=== PATIENT | female | born 2000 | race Caucasian/White ===

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

== ENCOUNTER 2018-04-12 19:55 | Emergency (ER) | payer OTHER ==
[2018-04-12 20:06] VITALS: BP 145/83; PULSE 89; RESP 16; TEMP 97.8
--- NOTE | 2018-04-12 20:29 | ED ---
Skin/Abscess/FB HPI - General Chief complaint: Skin/Abscess/Foreign Body Stated complaint: rash (Scabies) Time Seen by Provider: 04/12/18 20:09 Source: patient, RN notes reviewed Mode of arrival: ambulatory Limitations: no limitations - History of Present Illness Initial comments: This is a 17-year-old female who presents to the emergency department with chief complaint of skin. Patient states that her son has had a rash for the past 2 weeks. She states that she did bring him to the urgent care and he was diagnosed with eczema. Patient states that the rash did not improve and that yesterday he was diagnosed with scabies. She states that her son's father and her son are both being treated with a cream for scabies. She states that she would also like to be treated. She states that she is feeling itchy but has not seen any rash. Denies any recent fevers or chills, chest pain or shortness of breath, abdominal pain, nausea or vomiting. - Related Data Previous Rx's Medication Instructions Recorded Permethrin 5% Cream [Elimite] 1 applic TOPICAL ONCE #1 tube 04/12/18 Allergies Allergy/AdvReac Type Severity Reaction Status Date / Time ampicillin [From Unasyn] Allergy Mild Rash/Hives Verified 04/12/18 20:06 sulbactam [From Unasyn] Allergy Mild Rash/Hives Verified 04/12/18 20:06 Review of Systems ROS Statement: Those systems with pertinent positive or pertinent negative responses have been documented in the HPI. ROS Other: All systems not noted in ROS Statement are negative. Past Medical History Past Medical History: No Reported History Additional Past Medical History / Comment(s): polycystic kidney disease History of Any Multi-Drug Resistant Organisms: None Reported Past Surgical History: Cholecystectomy Past Anesthesia/Blood Transfusion Reactions: No Reported Reaction Past Psychological History: ADD/ADHD Smoking Status: Current every day smoker Past Alcohol Use History: None Reported Past Drug Use History: None Reported - Past Family History Sister(s) Family Medical History: No Reported History Additional Family Medical History / Comment(s): polycystic kidney disease, adhd General Exam - General Exam Comments Initial Comments: General: Awake and alert, well-developed; in no apparent distress. HEENT: Head atraumatic, normocephalic. Pupils are equal, round and reactive to light. Extraocular movements intact. Oropharynx moist without erythema or exudate. Neck: Supple. Normal ROM. Cardiovascular: Regular rate and rhythm. No murmurs, rubs or gallops. Chest symmetrical. Respiratory: Lungs clear to auscultation bilaterally. No wheezes, rales or rhonchi. Normal respiratory effort with no use of accessory muscles. Musculoskeletal: Normal ROM, no tenderness bilateral upper and lower extremities. Ambulating normally. Skin: [place], warm and dry without rashes or lesions. Neurological: Alert and oriented x3. CN II-XII grossly intact. Speech is fluent and answers are appropriate. No focal neuro deficits. Psychiatric: Normal mood and affect. No overt signs of depression or anxiety noted. Limitations: no limitations Course Vital Signs 04/12/18 20:05 Temperature 97.8 F Pulse Rate 89 Respiratory 16 Rate Blood Pressure 145/83 O2 Sat by Pulse 99 Oximetry Medical Decision Making - Medical Decision Making This is a 17-year-old female who presents to the emergency department with chief complaint of scabies exposure. Patient states her son and her son's father were diagnosed with scabies yesterday. She states that she is exposed to her son so would like to be treated. No rashes are present at this time. Patient will be provided with a prescription for permethrin cream. Use instructions were discussed. Vital signs are stable and patient is in no acute distress. Patient will be discharged home at this time. All questions answered. Disposition Clinical Impression: Exposure to scabies Disposition: HOME SELF-CARE Condition: Good Instructions: Scabies (ED) Additional Instructions: Please take medications as prescribed. Please follow up with primary care provider within 1-2 days. Return to emergency department if symptoms should worsen or any concerns arise. Prescriptions: Permethrin 5% Cream [Elimite] 1 applic TOPICAL ONCE #1 tube Is patient prescribed a controlled substance at d/c from ED?: No Referrals: Cherry Latif MD [Primary Care Provider] - 1-2 days Time of Disposition: 20:29
== END 2018-04-12 20:35 | disposition home or self-care (01) ==
LOC: EC 19:55
DX: Z20.7 Contact with and (suspected) exposure to pediculosis, acariasis and other infestations (principal); F17.200 Nicotine dependence, unspecified, uncomplicated; Z88.1 Allergy status to other antibiotic agents
CPT/HCPCS: 99282

== ENCOUNTER 2018-04-30 15:43 | Emergency (ER) | payer OTHER ==
[2018-04-30 16:06] VITALS: RESP 18
[2018-04-30] MEDS ORDERED: SODIUM CHLORIDE 0.9% 1,000 ML IV STA ×2 (17:08→19:29)
[2018-04-30] MEDS ORDERED: KETOROLAC 30 MG/ML 1 ML VIAL IVP STA (17:08)
--- NOTE | 2018-04-30 17:15 | ED ---
General Adult HPI - General Chief complaint: Back Pain/Injury Stated complaint: side and lower back pain Time Seen by Provider: 04/30/18 16:42 Source: family Mode of arrival: ambulatory Limitations: no limitations - History of Present Illness Initial comments: 17-year-old female with a past medical history of polycystic kidney disease presents to the emergency department for a chief complaint of left flank pain 2 days. Patient states it started in the left flank and is now somewhat lower as well in the lower back. Patient states she has polycystic kidney disease but denies any complications or decreased renal function. Patient admits to dysuria and burning with urination. She admits to urinary frequency and urgency as well. Patient denies fevers or chills at home. Patient states she has felt nauseous today and has vomited twice. Patient states bowel movements are normal. She denies noticing any hematuria. She denies any abdominal pain. Patient has no other complaints at this time including shortness of breath, chest pain, abdominal pain, headache, or visual changes. - Related Data Previous Rx's Medication Instructions Recorded Cephalexin [Keflex] 500 mg PO Q6HR 14 Days cap 04/30/18 Allergies Allergy/AdvReac Type Severity Reaction Status Date / Time ampicillin [From Unasyn] Allergy Mild Rash/Hives Verified 04/30/18 17:10 sulbactam [From Unasyn] Allergy Mild Rash/Hives Verified 04/30/18 17:10 Review of Systems ROS Statement: Those systems with pertinent positive or pertinent negative responses have been documented in the HPI. ROS Other: All systems not noted in ROS Statement are negative. Past Medical History Past Medical History: No Reported History Additional Past Medical History / Comment(s): polycystic kidney disease History of Any Multi-Drug Resistant Organisms: None Reported Past Surgical History: Cholecystectomy Past Anesthesia/Blood Transfusion Reactions: No Reported Reaction Past Psychological History: ADD/ADHD Smoking Status: Current every day smoker Past Alcohol Use History: Occasional Past Drug Use History: None Reported - Past Family History Sister(s) Family Medical History: No Reported History Additional Family Medical History / Comment(s): polycystic kidney disease, adhd General Exam Limitations: no limitations General appearance: alert, in no apparent distress Head exam: Present: atraumatic, normocephalic, normal inspection Eye exam: Present: normal appearance, PERRL, EOMI. Absent: scleral icterus, conjunctival injection, periorbital swelling ENT exam: Present: normal exam, normal oropharynx, mucous membranes moist, normal external ear exam Neck exam: Present: normal inspection. Absent: tenderness, meningismus, lymphadenopathy Respiratory exam: Present: normal lung sounds bilaterally. Absent: respiratory distress, wheezes, rales, rhonchi, stridor Cardiovascular Exam: Present: regular rate, normal rhythm, normal heart sounds. Absent: systolic murmur, diastolic murmur, rubs, gallop, clicks GI/Abdominal exam: Present: soft, normal bowel sounds. Absent: distended, tenderness, guarding, rebound, rigid Back exam: Present: CVA tenderness (R), CVA tenderness (L) Neurological exam: Present: alert, oriented X3, CN II-XII intact Psychiatric exam: Present: normal affect, normal mood Course Vital Signs 04/30/18 04/30/18 16:03 21:19 Temperature 98.6 F 98.8 F Pulse Rate 94 85 Respiratory 18 18 Rate Blood Pressure 127/84 124/70 O2 Sat by Pulse 98 99 Oximetry Medical Decision Making - Medical Decision Making 17-year-old with a past medical history of polycystic kidney disease presents to the emergency department for a chief complaint of left flank pain 2 days. Patient admits to urinary symptoms as well. Eyes fevers at home. Patient is afebrile on presentation to the emergency department and vitals are stable. CBC does show a white count of 13.3, CMP unremarkable. Urine shows significant signs of infection. Ultrasound of the kidney was ordered to rule out any stones. Ultrasound shows no hydronephrosis but there are multiple renal stones. Incidental finding of splenomegaly, spleen measured at 13.5. Patient was told about this finding and will follow up with primary care for this. CT was ordered to ensure there was no obstructing renal stone. There are multiple renal cysts which is consistent with patient's history of polycystic kidney disease. There are nonobstructing right renal calculi. No hydronephrosis. Patient was given 2 L of saline and 2 g of Rocephin here in the emergency department for pyelonephritis. Discussed inpatient versus outpatient treatment. Patient passed by mouth challenge multiple times and states she would like to try outpatient treatment and go home. Keflex was given 4 times a day for 14 days. She will follow up with primary care for this. Discussed with patient to return here if she becomes febrile or has any other worsening symptoms. Patient agrees with this and voices understanding. These instructions were given both in writing and verbally. - Lab Data Result diagrams: 04/30/18 17:29 04/30/18 17:29 Lab Results 04/30/18 04/30/18 04/30/18 Range/Units 17:29 17:29 17:29 WBC 13.3 H (4.0-11.0) k/uL RBC 5.09 (3.80-5.40) m/uL Hgb 15.1 (11.4-16.0) gm/dL Hct 45.7 (34.0-46.0) % MCV 89.8 (80.0-100.0) fL MCH 29.7 (25.0-35.0) pg MCHC 33.1 (31.0-37.0) g/dL RDW 12.7 (11.5-15.5) % Plt Count 197 (150-450) k/uL Neutrophils % 79 % Lymphocytes % 11 % Monocytes % 7 % Eosinophils % 0 % Basophils % 0 % Neutrophils # 10.6 H (1.3-7.7) k/uL Lymphocytes # 1.5 (1.0-4.8) k/uL Monocytes # 0.9 (0-1.0) k/uL Eosinophils # 0.1 (0-0.7) k/uL Basophils # 0.0 (0-0.2) k/uL Sodium (137-145) mmol/L Potassium (3.5-5.1) mmol/L Chloride (98-107) mmol/L Carbon Dioxide (22-30) mmol/L Anion Gap mmol/L BUN (7-17) mg/dL Creatinine (0.52-1.04) mg/dL Est GFR (CKD-EPI)AfAm (>60 ml/min/1.73 sqM) Est GFR (CKD-EPI)NonAf (>60 ml/min/1.73 sqM) Glucose (74-99) mg/dL Calcium (8.4-10.2) mg/dL Total Bilirubin (0.2-1.3) mg/dL AST (14-36) U/L ALT (9-52) U/L Alkaline Phosphatase (38-126) U/L Total Protein (6.3-8.2) g/dL Albumin (3.5-5.0) g/dL Amylase (30-110) U/L Lipase (23-300) U/L Urine Color Yellow Urine Appearance Turbid H (Clear) Urine pH 5.5 (5.0-8.0) Ur Specific [place] 1.013 (1.001-1.035) Urine Protein 2+ H (Negative) Urine Glucose (UA) Negative (Negative) Urine Ketones 1+ H (Negative) Urine Blood Moderate H (Negative) Urine Nitrite Positive H (Negative) Urine Bilirubin Negative (Negative) Urine Urobilinogen <2.0 (<2.0) mg/dL Ur Leukocyte Esterase Large H (Negative) Urine RBC 108 H (0-5) /hpf Urine WBC >182 H (0-5) /hpf Urine WBC Clumps Many H (None) /hpf Ur Squamous Epith Cells 5 H (0-4) /hpf Urine Bacteria Rare H (None) /hpf Urine Mucus Many H (None) /hpf Urine Yeast (Budding) Moderate H (None) /hpf Urine HCG, Qual Not Detected (Not Detectd) 04/30/18 Range/Units 17:29 WBC (4.0-11.0) k/uL RBC (3.80-5.40) m/uL Hgb (11.4-16.0) gm/dL Hct (34.0-46.0) % MCV (80.0-100.0) fL MCH (25.0-35.0) pg MCHC (31.0-37.0) g/dL RDW (11.5-15.5) % Plt Count (150-450) k/uL Neutrophils % % Lymphocytes % % Monocytes % % Eosinophils % % Basophils % % Neutrophils # (1.3-7.7) k/uL Lymphocytes # (1.0-4.8) k/uL Monocytes # (0-1.0) k/uL Eosinophils # (0-0.7) k/uL Basophils # (0-0.2) k/uL Sodium 135 L (137-145) mmol/L Potassium 4.5 (3.5-5.1) mmol/L Chloride 101 (98-107) mmol/L Carbon Dioxide 26 (22-30) mmol/L Anion Gap 8 mmol/L BUN 11 (7-17) mg/dL Creatinine 0.71 (0.52-1.04) mg/dL Est GFR (CKD-EPI)AfAm >90 (>60 ml/min/1.73 sqM) Est GFR (CKD-EPI)NonAf >90 (>60 ml/min/1.73 sqM) Glucose 89 (74-99) mg/dL Calcium 9.9 (8.4-10.2) mg/dL Total Bilirubin 0.9 (0.2-1.3) mg/dL AST 19 (14-36) U/L ALT 28 (9-52) U/L Alkaline Phosphatase 71 (38-126) U/L Total Protein 7.1 (6.3-8.2) g/dL Albumin 4.1 (3.5-5.0) g/dL Amylase 33 (30-110) U/L Lipase 29 (23-300) U/L Urine Color Urine Appearance (Clear) Urine pH (5.0-8.0) Ur Specific [place] (1.001-1.035) Urine Protein (Negative) Urine Glucose (UA) (Negative) Urine Ketones (Negative) Urine Blood (Negative) Urine Nitrite (Negative) Urine Bilirubin (Negative) Urine Urobilinogen (<2.0) mg/dL Ur Leukocyte Esterase (Negative) Urine RBC (0-5) /hpf Urine WBC (0-5) /hpf Urine WBC Clumps (None) /hpf Ur Squamous Epith Cells (0-4) /hpf Urine Bacteria (None) /hpf Urine Mucus (None) /hpf Urine Yeast (Budding) (None) /hpf Urine HCG, Qual (Not Detectd) Disposition Clinical Impression: Pyelonephritis, Urinary tract infection, Flank pain Disposition: HOME SELF-CARE Condition: Good Instructions: Urinary Tract Infection in Women (ED), Kidney Infection (ED) Additional Instructions: Please take antibiotic as directed. You will be contacted in the next few days if antibiotic needs to be changed. Please follow-up with primary care in 1-2 days. Return immediately to the emergency department if you have any worsening symptoms. Prescriptions: Cephalexin [Keflex] 500 mg PO Q6HR 14 Days cap Is patient prescribed a controlled substance at d/c from ED?: No Referrals: Cherry Latif MD [Primary Care Provider] - 1-2 days Time of Disposition: 21:09
[2018-04-30 17:40] LABS: Basophils % (A) 0 %; Eosinophils % (A) 0 %; HCT 45.7 % (34.0-46.0); HGB 15.1 gm/dL (11.4-16.0); Lymphocytes % (A) 11 %; MCH 29.7 pg (25.0-35.0); MCHC 33.1 g/dL (31.0-37.0); MCV 89.8 fL (80.0-100.0); Mean Platelet Volume 7.4; Monocytes % (A) 7 %; Neutrophils % (A) 79 %; Platelet Count 197 k/uL (150-450); RBC 5.09 m/uL (3.80-5.40); RDW 12.7 % (11.5-15.5); WBC 13.3 k/uL (4.0-11.0)
[2018-04-30 17:41] LABS: Eosinophils # (A) 0.1 k/uL (0-0.7); Lymphocytes # (A) 1.5 k/uL (1.0-4.8); Monocytes # (A) 0.9 k/uL (0-1.0); Neutrophils # (A) 10.6 k/uL (1.3-7.7)
[2018-04-30 17:44] LABS: Appearance,Urine Turbid (Clear); Bacteria,Urine Rare /hpf; Bilirubin,Urine Negative (Negative); Blood,Urine Moderate (Negative); Budding Yeast,Urine Moderate /hpf; Color,Urine Yellow; Glucose,Urine (UA) Negative (Negative); Ketones,Urine 1+ (Negative); Leukocyte Esterase,Urine Large (Negative); Mucus,Urine Many /hpf; Nitrite,Urine Positive (Negative); PH, Urine 5.5 (5.0-8.0); Protein,Urine 2+ (Negative); RBC,Urine 108 /hpf (0-5); Specific Gravity,Urine 1.013 (1.001-1.035); Squamous Epithelial Cell,Urine 5 /hpf (0-4); Urobilinogen,Urine <2.0 mg/dL (<2.0); WBC,Urine >182 /hpf (0-5)
[2018-04-30 17:50] LABS: ALT 28 U/L (9-52); AST 19 U/L (14-36); Albumin 4.1 g/dL (3.5-5.0); Alkaline Phosphatase 71 U/L (38-126); Amylase 33 U/L (30-110); Anion Gap 8 mmol/L; Blood Urea Nitrogen 11 mg/dL (7-17); Calcium 9.9 mg/dL (8.4-10.2); Carbon Dioxide 26 mmol/L (22-30); Chloride 101 mmol/L (98-107); Glucose 89 mg/dL (74-99); Lipase 29 U/L (23-300); Potassium 4.5 mmol/L (3.5-5.1); Sodium 135 mmol/L (137-145); Total Bilirubin 0.9 mg/dL (0.2-1.3); Total Protein 7.1 g/dL (6.3-8.2)
--- NOTE | 2018-04-30 18:34 | US ---
EXAMINATION TYPE: US kidneys/renal and bladder DATE OF EXAM: 04/30/2018 COMPARISON: NONE CLINICAL HISTORY: Pain. EXAM MEASUREMENTS: Right Kidney: 13.2 x 4.6 x 6.4 cm Left Kidney: 13.6 x 5.4 x 6.2 cm Right Kidney: multiple cysts largest measuring 3.6 x 3.4 x 3.6cm, 3 kidney stones inferior (echogenic foci, shadowing with twinkle artifact) Left Kidney:multiple small cysts , echogenic foci, possible stone measuring 0.4 x 0.4cm Bladder: not seen, not distended Incidental finding of splenomegaly, spleen measured at 13.5cm IMPRESSION: No hydronephrosis. Multiple renal cysts. Urinary bladder was empty.
--- NOTE | 2018-04-30 20:19 | CT ---
EXAMINATION TYPE: CT abdomen pelvis wo con DATE OF EXAM: 04/30/2018 COMPARISON: None HISTORY: bilateral flank pain, hx of polycystic disease CT DLP: 351.1 mGycm Automated exposure control for dose reduction was used. TECHNIQUE: Helical acquisition of images was performed from the lung bases through the pelvis. FINDINGS: Lung bases are clear. There is no pleural effusion. Heart size is normal. There is no pericardial eff usion. Liver shows no focal defect. There is no evidence of a splenic mass. There is a 10 mm rounded fluid density in the body of the pancreas. Pancreatic duct is not dilated. There is no adrenal mass. There are multiple hypodense areas in both kidneys consistent with multiple cysts. There is 1.5 cm calcification lower pole right kidney. I see no evidence of hydronephrosis. U reters do not appear dilated. Bladder is almost empty. There is no inguinal hernia. There is small amount of free fluid in the pelv is. Uterus is retroverted. Lumbar spine is intact. Bony pelvis is intact. I see no intestinal wall thickening. There are no dilated loops. There is no evidence of mesenteric e angel luis. There is no sign of retroperitoneal adenopathy. Appendix is normal. IMPRESSION: MULTIPLE RENAL CYSTS. ENLARGED KIDNEYS. RIGHT KIDNEY MEASURES 13.1 CM IN LENGTH. LEFT KIDNEY MEASURES 13.2 CM IN LENGTH. THIS IS CONSISTENT WITH POLYCYSTIC KIDNEY DISEASE. NONOBSTRUCTING RIGHT RENAL FEI CULUS. SMALL CYST IN THE BODY OF THE PANCREAS. MILD FREE FLUID IN THE PELVIS OF UNCERTAIN SIGNIFICANCE.
[2018-04-30 21:20] VITALS: BP 124/70; PULSE 85; TEMP 98.8
== END 2018-04-30 21:20 | disposition home or self-care (01) ==
LOC: EC 15:43
DX: N12 Tubulo-interstitial nephritis, not specified as acute or chronic (principal); N28.1 Cyst of kidney, acquired; N20.0 Calculus of kidney; E28.2 Polycystic ovarian syndrome; F17.200 Nicotine dependence, unspecified, uncomplicated; Z90.49 Acquired absence of other specified parts of digestive tract; Z88.1 Allergy status to other antibiotic agents
CPT/HCPCS: 36415; 80053; 82150; 83690; 85025; 81001; 81025; 87040; 87086; 76770; 74176; 99284; 96365; 96375; 96361 ×2; J0696; J1885

== ENCOUNTER 2018-06-10 19:41 | Inpatient (IN) | payer OTHER ==
[2018-06-10] MEDS ORDERED: ACETAMINOPHEN TAB 500 MG TAB PO STA (21:54)
[2018-06-10] MEDS ORDERED: IBUPROFEN 600 MG TAB PO STA (21:54)
[2018-06-10] MEDS ORDERED: cefTRIAXone 2,000 MG in SODIUM CHLORIDE 0.9% 100 ML IVPB STA (21:56)
--- NOTE | 2018-06-10 21:59 | ED ---
Abdominal Pain HPI - General Source: patient, RN notes reviewed, old records reviewed Mode of arrival: ambulatory Limitations: no limitations <Sherry Joseph - Last Filed: 06/11/18 01:03> <Stefanie Anderson - Last Filed: 06/17/18 03:23> - General Chief Complaint: Abdominal Pain Stated Complaint: Poss kidney infection Time Seen by Provider: 06/10/18 21:25 - History of Present Illness Initial Comments: Patient is a 17-year-old female presents or started to complain of right-sided flank pain 2 days. She reports her urine has been very dark. She has history of polycystic kidney disease. Patient states that she has had fevers and chills. No recent Motrin or Tylenol were given. She denies any significant dysuria. (Sherry Joseph) - Related Data Home Medications Medication Instructions Recorded Confirmed Ibuprofen [Motrin Ib] 400 mg PO Q6H PRN 06/10/18 06/10/18 Previous Rx's Medication Instructions Recorded Ciprofloxacin HCl [Cipro] 500 mg PO BID #24 tab 06/15/18 Ferrous Sulfate [Feosol] 325 mg PO BID #60 tab 06/15/18 Allergies Allergy/AdvReac Type Severity Reaction Status Date / Time ampicillin [From Unasyn] Allergy Mild Rash/Hives Verified 06/10/18 22:45 sulbactam [From Unasyn] Allergy Mild Rash/Hives Verified 06/10/18 22:45 Review of Systems ROS Other: All systems not noted in ROS Statement are negative. <Sherry Joseph - Last Filed: 06/11/18 01:03> ROS Other: All systems not noted in ROS Statement are negative. <Stefanie Anderson - Last Filed: 06/17/18 03:23> ROS Statement: Those systems with pertinent positive or pertinent negative responses have been documented in the HPI. Past Medical History Past Medical History: No Reported History Additional Past Medical History / Comment(s): polycystic kidney disease History of Any Multi-Drug Resistant Organisms: None Reported Past Surgical History: Cholecystectomy Past Anesthesia/Blood Transfusion Reactions: No Reported Reaction Past Psychological History: ADD/ADHD Smoking Status: Current every day smoker Past Alcohol Use History: Occasional Past Drug Use History: None Reported - Past Family History Sister(s) Family Medical History: No Reported History Additional Family Medical History / Comment(s): polycystic kidney disease, adhd <Sherry Joseph - Last Filed: 06/11/18 01:03> General Exam Limitations: no limitations General appearance: alert, in no apparent distress Head exam: Present: atraumatic, normocephalic, normal inspection Eye exam: Present: normal appearance, PERRL, EOMI. Absent: scleral icterus, conjunctival injection, periorbital swelling ENT exam: Present: normal exam, mucous membranes moist Neck exam: Present: normal inspection. Absent: tenderness, meningismus, lymphadenopathy Respiratory exam: Present: normal lung sounds bilaterally. Absent: respiratory distress, wheezes, rales, rhonchi, stridor Cardiovascular Exam: Present: regular rate, normal rhythm, normal heart sounds. Absent: systolic murmur, diastolic murmur, rubs, gallop, clicks GI/Abdominal exam: Present: soft, tenderness (Right CVA tenderness. Suprapubic tenderness), normal bowel sounds. Absent: distended, guarding, rebound, rigid Extremities exam: Present: normal inspection, full ROM, normal capillary refill. Absent: tenderness, pedal edema, joint swelling, calf tenderness Back exam: Present: normal inspection Neurological exam: Present: alert, oriented X3, CN II-XII intact Psychiatric exam: Present: normal affect, normal mood <Sherry Joseph - Last Filed: 06/11/18 01:03> <Stefanie Anderson - Last Filed: 06/17/18 03:23> - General Exam Comments Initial Comments: Well-appearing 17-year-old female. Moderate discomfort. (Sherry Joseph) Vital Signs 06/10/18 06/10/18 06/10/18 20:09 21:45 23:09 Temperature 99.6 F 103.5 F H 99.1 F Pulse Rate 108 H 98 90 Respiratory 20 20 16 Rate Blood Pressure 113/69 136/74 113/62 O2 Sat by Pulse 98 97 98 Oximetry 06/11/18 03:38 Temperature 97.6 F Pulse Rate 73 Respiratory 18 Rate Blood Pressure 94/54 O2 Sat by Pulse 100 Oximetry Medical Decision Making - Lab Data Result diagrams: 06/10/18 22:00 06/10/18 22:00 - Radiology Data Radiology results: report reviewed <Sherry Joseph - Last Filed: 06/11/18 01:03> - Lab Data Result diagrams: 06/15/18 10:50 06/15/18 10:50 <Stefanie Anderson - Last Filed: 06/17/18 03:23> - Medical Decision Making 17-year-old female presents today with severe right-sided flank pain, and fevers. Patient reports that she is history of polycystic any disease. Urinalysis is positive for infection. Culture obtained. Patient started on 2 g of Rocephin. White blood cell count is elevated at 19,000. Ultrasound was completed. She has evidence of cysts on both her kidneys. Renal function is maintained. She is still producing urine. Less concern for obstructive stone. We did complete an ultrasound of the kidney that didn't show no evidence of sprenoyui-mjrx-[id number] gentleman to function at that time. Patient was given Motrin and Tylenol. She started to rest comfortably in bed. Patient agrees to be admitted. Bruno the Patient to Dr. Andrade with consult to urology. ( Sherry Joseph) I personally saw and examined the patient. I reviewed and agree with the mid- level provider findings including all diagnostic interpretations and treatment plans as written unless otherwise stated. I was present for schmidt portions of any procedures performed. Agree with plan for admission. (Stefanie Anderson) - Lab Data Lab Results 06/10/18 06/10/18 06/10/18 Range/Units 21:40 21:40 22:00 WBC 19.4 H (4.0-11.0) k/uL RBC 4.59 (3.80-5.40) m/uL Hgb 13.1 (11.4-16.0) gm/dL Hct 39.3 (34.0-46.0) % MCV 85.7 (80.0-100.0) fL MCH 28.6 (25.0-35.0) pg MCHC 33.3 (31.0-37.0) g/dL RDW 13.6 (11.5-15.5) % Plt Count 205 (150-450) k/uL Neutrophils % 77 % Lymphocytes % 11 % Monocytes % 8 % Eosinophils % 0 % Basophils % 0 % Neutrophils # 14.9 H (1.3-7.7) k/uL Lymphocytes # 2.1 (1.0-4.8) k/uL Monocytes # 1.6 H (0-1.0) k/uL Eosinophils # 0.0 (0-0.7) k/uL Basophils # 0.0 (0-0.2) k/uL PT (9.0-12.0) sec INR (<1.2) APTT (22.0-30.0) sec Sodium (137-145) mmol/L Potassium (3.5-5.1) mmol/L Chloride (98-107) mmol/L Carbon Dioxide (22-30) mmol/L Anion Gap mmol/L BUN (7-17) mg/dL Creatinine (0.52-1.04) mg/dL Est GFR (CKD-EPI)AfAm (>60 ml/min/1.73 sqM) Est GFR (CKD-EPI)NonAf (>60 ml/min/1.73 sqM) Glucose (74-99) mg/dL Plasma Lactic Acid Alber (0.7-2.0) mmol/L Calcium (8.4-10.2) mg/dL Total Bilirubin (0.2-1.3) mg/dL AST (14-36) U/L ALT (9-52) U/L Alkaline Phosphatase (38-126) U/L Total Protein (6.3-8.2) g/dL Albumin (3.5-5.0) g/dL Urine Color Red Urine Appearance Turbid H (Clear) Urine pH 5.5 (5.0-8.0) Ur Specific [place] 1.017 (1.001-1.035) Urine Protein 2+ H (Negative) Urine Glucose (UA) Negative (Negative) Urine Ketones 1+ H (Negative) Urine Blood Large H (Negative) Urine Nitrite Negative (Negative) Urine Bilirubin Negative (Negative) Urine Urobilinogen 2.0 (<2.0) mg/dL Ur Leukocyte Esterase Large H (Negative) Urine RBC >182 H (0-5) /hpf Urine WBC 158 H (0-5) /hpf Urine Mucus Many H (None) /hpf Urine HCG, Qual Not Detected (Not Detectd) 06/10/18 06/10/18 06/10/18 Range/Units 22:00 22:00 22:00 WBC (4.0-11.0) k/uL RBC (3.80-5.40) m/uL Hgb (11.4-16.0) gm/dL Hct (34.0-46.0) % MCV (80.0-100.0) fL MCH (25.0-35.0) pg MCHC (31.0-37.0) g/dL RDW (11.5-15.5) % Plt Count (150-450) k/uL Neutrophils % % Lymphocytes % % Monocytes % % Eosinophils % % Basophils % % Neutrophils # (1.3-7.7) k/uL Lymphocytes # (1.0-4.8) k/uL Monocytes # (0-1.0) k/uL Eosinophils # (0-0.7) k/uL Basophils # (0-0.2) k/uL PT 10.7 (9.0-12.0) sec INR 1.0 (<1.2) APTT 27.9 (22.0-30.0) sec Sodium 136 L (137-145) mmol/L Potassium 3.8 (3.5-5.1) mmol/L Chloride 105 (98-107) mmol/L Carbon Dioxide 21 L (22-30) mmol/L Anion Gap 10 mmol/L BUN 10 (7-17) mg/dL Creatinine 0.67 (0.52-1.04) mg/dL Est GFR (CKD-EPI)AfAm >90 (>60 ml/min/1.73 sqM) Est GFR (CKD-EPI)NonAf >90 (>60 ml/min/1.73 sqM) Glucose 92 (74-99) mg/dL Plasma Lactic Acid Alber 0.8 (0.7-2.0) mmol/L Calcium 9.3 (8.4-10.2) mg/dL Total Bilirubin 1.0 (0.2-1.3) mg/dL AST 17 (14-36) U/L ALT 24 (9-52) U/L Alkaline Phosphatase 68 (38-126) U/L Total Protein 7.1 (6.3-8.2) g/dL Albumin 3.9 (3.5-5.0) g/dL Urine Color Urine Appearance (Clear) Urine pH (5.0-8.0) Ur Specific [place] (1.001-1.035) Urine Protein (Negative) Urine Glucose (UA) (Negative) Urine Ketones (Negative) Urine Blood (Negative) Urine Nitrite (Negative) Urine Bilirubin (Negative) Urine Urobilinogen (<2.0) mg/dL Ur Leukocyte Esterase (Negative) Urine RBC (0-5) /hpf Urine WBC (0-5) /hpf Urine Mucus (None) /hpf Urine HCG, Qual (Not Detectd) 06/10/18 23:40 EKG shows normal sinus rhythm and normal EKG. Ventricular rate 91 beats were minute. Intervals 140 ms. QRS duration 94 seconds. QT QTc is 360/450 ms. (Sherry Joseph) - Radiology Data Multiple bilateral renal cyst. Raises possibility of adult type polycystic kidney disease. Kidneys are relatively large. No hydronephrosis. Not [id number] just the urinary bladder. Echogenic foci in the renal sinus on the right side that could be a nonobstructing colliculi. (Sherry Joseph) Disposition Is patient prescribed a controlled substance at d/c from ED?: No Time of Disposition: 01:05 <Sherry Joseph - Last Filed: 06/11/18 01:03> <Stefanie Anderson - Last Filed: 06/17/18 03:23> Clinical Impression: Polycystic kidney, Pyelonephritis, Sepsis Disposition: ADMITTED IP TO THIS HOSP Condition: Stable
[2018-06-10] MEDS: SODIUM CHLORIDE 0.9% 500 ML 500 ML IV SCH ×3 (22:00→22:17)
[2018-06-10 22:15] LABS: Appearance,Urine Turbid (Clear); Bilirubin,Urine Negative (Negative); Blood,Urine Large (Negative); Color,Urine Red; Glucose,Urine (UA) Negative (Negative); Ketones,Urine 1+ (Negative); Leukocyte Esterase,Urine Large (Negative); Mucus,Urine Many /hpf; Nitrite,Urine Negative (Negative); PH, Urine 5.5 (5.0-8.0); Protein,Urine 2+ (Negative); RBC,Urine >182 /hpf (0-5); Specific Gravity,Urine 1.017 (1.001-1.035); WBC,Urine 158 /hpf (0-5)
[2018-06-10] MEDS ORDERED: ONDANSETRON 4 MG/2 ML VIAL IVP STA (22:18)
[2018-06-10 22:21] LABS: Basophils % (A) 0 %; Eosinophils % (A) 0 %; HCT 39.3 % (34.0-46.0); HGB 13.1 gm/dL (11.4-16.0); Lymphocytes # (A) 2.1 k/uL (1.0-4.8); Lymphocytes % (A) 11 %; MCH 28.6 pg (25.0-35.0); MCHC 33.3 g/dL (31.0-37.0); MCV 85.7 fL (80.0-100.0); Mean Platelet Volume 7.6; Monocytes # (A) 1.6 k/uL (0-1.0); Monocytes % (A) 8 %; Neutrophils # (A) 14.9 k/uL (1.3-7.7); Neutrophils % (A) 77 %; Platelet Count 205 k/uL (150-450); RBC 4.59 m/uL (3.80-5.40); RDW 13.6 % (11.5-15.5); WBC 19.4 k/uL (4.0-11.0)
[2018-06-10 22:36] LABS: ALT 24 U/L (9-52); AST 17 U/L (14-36); Albumin 3.9 g/dL (3.5-5.0); Alkaline Phosphatase 68 U/L (38-126); Anion Gap 10 mmol/L; Blood Urea Nitrogen 10 mg/dL (7-17); Calcium 9.3 mg/dL (8.4-10.2); Carbon Dioxide 21 mmol/L (22-30); Chloride 105 mmol/L (98-107); Glucose 92 mg/dL (74-99); Potassium 3.8 mmol/L (3.5-5.1); Sodium 136 mmol/L (137-145); Total Protein 7.1 g/dL (6.3-8.2)
[2018-06-10 22:38] LABS: Partial Thromboplastin Time 27.9 sec (22.0-30.0); Prothrombin Time 10.7 sec (9.0-12.0)
--- NOTE | 2018-06-11 00:18 | US ---
EXAMINATION TYPE: US renals and bladder DATE OF EXAM: 06/11/2018 COMPARISON: NONE CLINICAL HISTORY: Pain. Pain EXAM MEASUREMENTS: Right Kidney: 14.0 x 5.3 x 6.1 cm Left Kidney: 12.9 x 4.2 x 5.8 cm Right Kidney: Enlarged with echogenic foci seen. Anechoic area mid pole measuring 2.7 x 3.5x 2.7cm. Left Kidney: Enlarged with multiple cystic areas largest upper pole 2.2 x 2.3cm. Bladder: wnl Bilateral Jets seen: No IMPRESSION: Multiple bilateral renal cysts. This raises the possibility of adult type polycystic kidney disease. Kidneys are relatively large. No hydronephrosis. We could not demonstrate ureteral jets in the urinar y bladder. There are echogenic foci in the renal sinus on the right side at could be nonobstructing c alculi.
[2018-06-11] MEDS ORDERED: NALOXONE 0.4 MG/ML 1 ML VIAL IV PRN (01:06)
[2018-06-11] MEDS: SODIUM CHLORIDE 0.9% 1,000 ML IV SCH ×3 (03:33→23:38)
[2018-06-11 04:16] VITALS: BMI 24.7
[2018-06-11] MEDS: PANTOPRAZOLE 40 MG/10 ML VIAL IV SCH (09:01)
[2018-06-11] MEDS: Acetaminophen-Codeine 300-30mg TAB PO PRN ×2 (09:09→20:24)
[2018-06-11 11:19] LABS: Basophils % (A) 0 %; Eosinophils # (A) 0.1 k/uL (0-0.7); Eosinophils % (A) 1 %; HCT 35.1 % (34.0-46.0); HGB 11.4 gm/dL (11.4-16.0); Lymphocytes # (A) 1.8 k/uL (1.0-4.8); Lymphocytes % (A) 13 %; MCH 28.9 pg (25.0-35.0); MCHC 32.5 g/dL (31.0-37.0); MCV 89.1 fL (80.0-100.0); Mean Platelet Volume 8.2; Monocytes # (A) 0.9 k/uL (0-1.0); Monocytes % (A) 7 %; Neutrophils # (A) 10.1 k/uL (1.3-7.7); Neutrophils % (A) 75 %; Platelet Count 170 k/uL (150-450); RBC 3.94 m/uL (3.80-5.40); RDW 13.6 % (11.5-15.5); WBC 13.4 k/uL (4.0-11.0)
[2018-06-11 11:31] LABS: ALT 21 U/L (9-52); AST 12 U/L (14-36); Alkaline Phosphatase 59 U/L (38-126); Anion Gap 4 mmol/L; Blood Urea Nitrogen 10 mg/dL (7-17); Calcium 8.4 mg/dL (8.4-10.2); Carbon Dioxide 26 mmol/L (22-30); Chloride 108 mmol/L (98-107); Glucose 102 mg/dL (74-99); Potassium 4.3 mmol/L (3.5-5.1); Sodium 138 mmol/L (137-145); Total Bilirubin 0.6 mg/dL (0.2-1.3); Total Protein 5.7 g/dL (6.3-8.2)
[2018-06-11] MEDS: MORPHINE SULFATE 4 MG/ML SYRINGE IV PRN (12:14)
[2018-06-11] MEDS: IBUPROFEN 400 MG TAB PO PRN ×2 (12:21→18:00)
--- NOTE | 2018-06-11 12:39 | P.HPIM ---
History of Present Illness H&P Date: 06/11/18 Chief Complaint: right flank pain This is a 17-year-old female, a patient of Dr. Latif. She has a known past medical history of polycystic kidney disease. She's had previous urinary tract infections in the past. Patient presents to the hospital complaining of right- sided flank pain for 2 days. She reports that her urine is very dark and there was blood at present in the urine. She's also had fevers and chills. She had a temp of 103.5 and white count 19.4 on admission. Urinalysis shows evidence of a UTI. Renal ultrasound showing multiple bilateral renal cysts. This raises the possibility of adult type polycystic kidney disease. Kidneys are relatively large. No hydronephrosis. There are echogenic foci in the renal sinus on the right side could be nonobstructing calculi. Urology has been consulted. Patient on IV Rocephin. Continue IV fluids. Continue, codeine for pain control and fever as well as Motrin. Patient denies any nausea or vomiting , bowel movement changes or urinary symptoms. Review of Systems Please refer to HPI otherwise unremarkable Past Medical History Past Medical History: No Reported History Additional Past Medical History / Comment(s): polycystic kidney disease History of Any Multi-Drug Resistant Organisms: None Reported Past Surgical History: Section, Cholecystectomy Past Anesthesia/Blood Transfusion Reactions: No Reported Reaction Past Psychological History: ADD/ADHD Smoking Status: Current every day smoker Past Alcohol Use History: Occasional Past Drug Use History: None Reported - Past Family History Sister(s) Family Medical History: No Reported History Additional Family Medical History / Comment(s): polycystic kidney disease, adhd Medications and Allergies Home Medications Medication Instructions Recorded Confirmed Type Ibuprofen [Motrin Ib] 400 mg PO Q6H PRN 06/10/18 06/10/18 History Allergies Allergy/AdvReac Type Severity Reaction Status Date / Time ampicillin [From Unasyn] Allergy Mild Rash/Hives Verified 06/10/18 22:45 sulbactam [From Unasyn] Allergy Mild Rash/Hives Verified 06/10/18 22:45 Physical Exam Vitals: Vital Signs Temp Pulse Pulse Resp BP BP Pulse Ox 06/11/18 08:53 98.7 F 77 16 95/59 96 06/11/18 04:09 97.6 F 72 16 95/56 96 06/11/18 03:38 97.6 F 73 18 94/54 100 06/10/18 23:09 99.1 F 90 16 113/62 98 06/10/18 21:45 103.5 F H 98 20 136/74 97 06/10/18 20:09 99.6 F 108 H 20 113/69 98 Intake and Output 06/10/18 06/11/18 06/11/18 22:59 06:59 14:59 Other: Voiding Method Toilet Toilet Weight 63.503 kg 65.516 kg Head normocephalic Neck supple Lungs clear to auscultation bilaterally no wheezing or crackles Heart regular rate and rhythm S1-S2, no rub or gallop Abdomen is soft right flank pain and diffuse tenderness Extremities no edema Neuro alert and orientated to 3 Results CBC & Chem 7: 06/11/18 11:09 06/11/18 11:09 Labs: Abnormal Lab Results - Last 24 Hours (Table) 06/10/18 06/10/18 06/10/18 Range/Units 21:40 22:00 22:00 WBC 19.4 H (4.0-11.0) k/uL Neutrophils # 14.9 H (1.3-7.7) k/uL Monocytes # 1.6 H (0-1.0) k/uL Sodium 136 L (137-145) mmol/L Chloride (98-107) mmol/L Carbon Dioxide 21 L (22-30) mmol/L Glucose (74-99) mg/dL AST (14-36) U/L Total Protein (6.3-8.2) g/dL Albumin (3.5-5.0) g/dL Urine Appearance Turbid H (Clear) Urine Protein 2+ H (Negative) Urine Ketones 1+ H (Negative) Urine Blood Large H (Negative) Ur Leukocyte Esterase Large H (Negative) Urine RBC >182 H (0-5) /hpf Urine WBC 158 H (0-5) /hpf Urine Mucus Many H (None) /hpf 06/11/18 06/11/18 Range/Units 11:09 11:09 WBC 13.4 H (4.0-11.0) k/uL Neutrophils # 10.1 H (1.3-7.7) k/uL Monocytes # (0-1.0) k/uL Sodium (137-145) mmol/L Chloride 108 H (98-107) mmol/L Carbon Dioxide (22-30) mmol/L Glucose 102 H (74-99) mg/dL AST 12 L (14-36) U/L Total Protein 5.7 L (6.3-8.2) g/dL Albumin 3.0 L (3.5-5.0) g/dL Urine Appearance (Clear) Urine Protein (Negative) Urine Ketones (Negative) Urine Blood (Negative) Ur Leukocyte Esterase (Negative) Urine RBC (0-5) /hpf Urine WBC (0-5) /hpf Urine Mucus (None) /hpf Microbiology - Last 24 Hours (Table) 06/10/18 22:00 Urine Culture - Preliminary Urine,Voided Thrombosis Risk Factor Assmnt - Choose All That Apply Any of the Below Risk Factors Present?: No Other Risk Factors: No Thrombosis Risk Factor Assessment Level: Very Low Risk Assessment and Plan Assessment: 1. Acute pyelonephritis with sepsis present on admission: Patient started on IV Rocephin 1 g every 12 hours. Continue with IV fluids. Check blood culture and urine culture. Urology on consult 2. History of polycystic kidney disease 3. Nicotine dependence: Discussed smoking cessation for greater than 3 minutes. GI prophylaxis Protonix and DVT prophylaxis SCDs and ambulate Time with Patient: Greater than 30 (Greater than 50% of the total time spent in counseling and coordination of care.I performed an examination of the patient and discussed their management with the physician Imaging Technician. I have reviewed the Physician Imaging Technician's notes and agree with the documented findings and plan of care)
--- NOTE | 2018-06-11 19:29 | P.GSCN ---
History of Present Illness Consult date: 06/11/18 Reason for Consult: Right pyelonephritis History of present illness: The patient is a 17-year-old female admitted through the emergency room early this morning for evaluation of right flank pain and a fever. She says she first developed right flank pain associated with some chills on 06/08. She says that her urine became dark brown although she denies any gross hematuria or dysuria. She noted no increase in urinary frequency or urgency. The right flank and right upper quadrant pain worsened and was associated with some vomiting on 06/09. She came to the emergency room yesterday evening and was noted to have a temperature of 103.5. White blood count was 19,400. Urinalysis showed hematuria and pyuria but was negative for nitrite. Lactic acid was 0.8. The patient was given IV Rocephin. She has a history of polycystic kidney disease and a renal ultrasound showed evidence of bilateral renal cysts consistent with polycystic kidney disease. There was no hydronephrosis. A probable nonobstructive calculus was noted in the right kidney. She says she normally voids every 3-4 hours during the day and has no nocturia. She says her bowels are usually normal. She denies any vaginal discharge. The patient had been evaluated in the [facility] ER on 04/30/2018 due to left flank pain and at that time was noted to have a urinary tract infection. CT scan of the abdomen and pelvis without IV contrast was obtained and showed changes consistent with polycystic kidney disease. There was no hydronephrosis. A nonobstructive calculus measuring approximately 4 x 9 mm in diameter was noted in the lower pole of the right kidney.A urine culture grew Escherichia coli and she was treated with Keflex for 14 days. She said that her symptoms resolved. She does not have a history of recurrent urinary tract infections prior to that time. She has no history of urolithiasis and there is no family history of urolithiasis. Family history is significant in that a mother and 2 uncles have polycystic kidney disease but apparently none of them have progressed to renal failure. Review of Systems - Constitutional Reports anorexia, Reports chills, Reports fever, Reports lethargy - Cardiovascular Denies shortness of breath - Respiratory Denies cough - Gastrointestinal Reports as per HPI - Genitourinary Genitourinary: Reports as per HPI Past Medical History Past Medical History: No Reported History Additional Past Medical History / Comment(s): polycystic kidney disease History of Any Multi-Drug Resistant Organisms: None Reported Past Surgical History: Section, Cholecystectomy Past Anesthesia/Blood Transfusion Reactions: No Reported Reaction Past Psychological History: ADD/ADHD Smoking Status: Current every day smoker Past Alcohol Use History: Occasional Past Drug Use History: None Reported - Past Family History Sister(s) Family Medical History: No Reported History Additional Family Medical History / Comment(s): polycystic kidney disease, adhd Medications and Allergies Home Medications Medication Instructions Recorded Confirmed Type Ibuprofen [Motrin Ib] 400 mg PO Q6H PRN 06/10/18 06/10/18 History Allergies Allergy/AdvReac Type Severity Reaction Status Date / Time ampicillin [From Unasyn] Allergy Mild Rash/Hives Verified 06/10/18 22:45 sulbactam [From Unasyn] Allergy Mild Rash/Hives Verified 06/10/18 22:45 Surgical - Exam Vital Signs Temp Pulse Resp BP Pulse Ox 99.6 F 108 H 20 113/69 98 06/10/18 20:09 06/10/18 20:09 06/10/18 20:09 06/10/18 20:09 06/10/18 20:09 - General well developed, well nourished (History), moderate distress - ENT no hearing loss - Neck no masses, no lymphadectomy - Respiratory normal respiratory effort - Abdomen Abdomen: soft, tender (Right flank and right upper quadrant-), no organomegaly, no masses, no guarding Hernia: none Results - Labs 06/11/18 11:09 06/11/18 11:09 Abnormal Lab Results - Last 24 Hours (Table) 06/10/18 06/10/18 06/10/18 Range/Units 21:40 22:00 22:00 WBC 19.4 H (4.0-11.0) k/uL Neutrophils # 14.9 H (1.3-7.7) k/uL Monocytes # 1.6 H (0-1.0) k/uL Sodium 136 L (137-145) mmol/L Chloride (98-107) mmol/L Carbon Dioxide 21 L (22-30) mmol/L Glucose (74-99) mg/dL AST (14-36) U/L Total Protein (6.3-8.2) g/dL Albumin (3.5-5.0) g/dL Urine Appearance Turbid H (Clear) Urine Protein 2+ H (Negative) Urine Ketones 1+ H (Negative) Urine Blood Large H (Negative) Ur Leukocyte Esterase Large H (Negative) Urine RBC >182 H (0-5) /hpf Urine WBC 158 H (0-5) /hpf Urine Mucus Many H (None) /hpf 06/11/18 06/11/18 Range/Units 11:09 11:09 WBC 13.4 H (4.0-11.0) k/uL Neutrophils # 10.1 H (1.3-7.7) k/uL Monocytes # (0-1.0) k/uL Sodium (137-145) mmol/L Chloride 108 H (98-107) mmol/L Carbon Dioxide (22-30) mmol/L Glucose 102 H (74-99) mg/dL AST 12 L (14-36) U/L Total Protein 5.7 L (6.3-8.2) g/dL Albumin 3.0 L (3.5-5.0) g/dL Urine Appearance (Clear) Urine Protein (Negative) Urine Ketones (Negative) Urine Blood (Negative) Ur Leukocyte Esterase (Negative) Urine RBC (0-5) /hpf Urine WBC (0-5) /hpf Urine Mucus (None) /hpf Microbiology - Last 24 Hours (Table) 06/10/18 22:00 Urine Culture - Preliminary Urine,Voided Diabetes panel 06/10/18 06/11/18 Range/Units 22:00 11:09 Sodium 136 L 138 (137-145) mmol/L Potassium 3.8 4.3 (3.5-5.1) mmol/L Chloride 105 108 H (98-107) mmol/L Carbon Dioxide 21 L 26 (22-30) mmol/L BUN 10 10 (7-17) mg/dL Creatinine 0.67 0.71 (0.52-1.04) mg/dL Glucose 92 102 H (74-99) mg/dL Calcium 9.3 8.4 (8.4-10.2) mg/dL AST 17 12 L (14-36) U/L ALT 24 21 (9-52) U/L Alkaline Phosphatase 68 59 (38-126) U/L Total Protein 7.1 5.7 L (6.3-8.2) g/dL Albumin 3.9 3.0 L (3.5-5.0) g/dL Calcium panel 06/10/18 06/11/18 Range/Units 22:00 11:09 Calcium 9.3 8.4 (8.4-10.2) mg/dL Albumin 3.9 3.0 L (3.5-5.0) g/dL Pituitary panel 06/10/18 06/11/18 Range/Units 22:00 11:09 Sodium 136 L 138 (137-145) mmol/L Potassium 3.8 4.3 (3.5-5.1) mmol/L Chloride 105 108 H (98-107) mmol/L Carbon Dioxide 21 L 26 (22-30) mmol/L BUN 10 10 (7-17) mg/dL Creatinine 0.67 0.71 (0.52-1.04) mg/dL Glucose 92 102 H (74-99) mg/dL Calcium 9.3 8.4 (8.4-10.2) mg/dL Adrenal panel 06/10/18 06/11/18 Range/Units 22:00 11:09 Sodium 136 L 138 (137-145) mmol/L Potassium 3.8 4.3 (3.5-5.1) mmol/L Chloride 105 108 H (98-107) mmol/L Carbon Dioxide 21 L 26 (22-30) mmol/L BUN 10 10 (7-17) mg/dL Creatinine 0.67 0.71 (0.52-1.04) mg/dL Glucose 92 102 H (74-99) mg/dL Calcium 9.3 8.4 (8.4-10.2) mg/dL Total Bilirubin 1.0 0.6 (0.2-1.3) mg/dL AST 17 12 L (14-36) U/L ALT 24 21 (9-52) U/L Alkaline Phosphatase 68 59 (38-126) U/L Total Protein 7.1 5.7 L (6.3-8.2) g/dL Albumin 3.9 3.0 L (3.5-5.0) g/dL - Imaging CT scan - abdomen: image reviewed US - kidney/bladder: image reviewed Assessment and Plan (1) Pyelonephritis Narrative/Plan: The patient's history is consistent with acute right pyelonephritis. Although she does have a right renal calculus this does not appear to be obstructive based on the recent ultrasound and its previous location on the in the lower pole of the right kidney on the CT scan last month. I am in agreement with the use of Rocephin pending results of the urine cultures. Current Visit: Yes Status: Acute Code(s): N12 - TUBULO-INTERSTITIAL NEPHRITIS, NOT SPCF ACUTE OR CHRONIC SNOMED Code(s): 32022790 (2) Polycystic kidney Narrative/Plan: The patient appears to have adult onset polycystic kidney disease with normal renal function and is normotensive at this time. She says that she was evaluated by a allergist/pediatric pulmonologist around 2011 at [facility] in [place] but did not keep any follow-up. I would suggest that she set up an appointment sometime next month to be evaluated by one of the local nephrologists to establish long-term care. Current Visit: Yes Status: Chronic Priority: Low Code(s): Q61.3 - POLYCYSTIC KIDNEY, UNSPECIFIED SNOMED Code(s): 74881773 (3) Renal calculus, right Narrative/Plan: At some point in the future the patient should consider elective treatment of her right renal calculus. This will need to be deferred until resolution of her acute right pyelonephritis and is not emergent. Treatment could be either via ESWL or ureteroscopy with lithotripsy. Current Visit: Yes Status: Acute Code(s): N20.0 - CALCULUS OF KIDNEY SNOMED Code(s): 01394404
[2018-06-12] MEDS: MORPHINE SULFATE 4 MG/ML SYRINGE IV PRN ×2 (04:04→13:01)
[2018-06-12] MEDS: SODIUM CHLORIDE 0.9% 1,000 ML IV SCH ×2 (06:04→15:58)
[2018-06-12 06:45] LABS: Basophils % (A) 0 %; Eosinophils # (A) 0.1 k/uL (0-0.7); Eosinophils % (A) 1 %; HGB 10.4 gm/dL (11.4-16.0); Lymphocytes # (A) 1.7 k/uL (1.0-4.8); Lymphocytes % (A) 17 %; MCH 28.8 pg (25.0-35.0); MCHC 32.4 g/dL (31.0-37.0); MCV 88.7 fL (80.0-100.0); Mean Platelet Volume 7.7; Monocytes # (A) 0.6 k/uL (0-1.0); Monocytes % (A) 6 %; Neutrophils % (A) 71 %; Platelet Count 155 k/uL (150-450); RDW 13.8 % (11.5-15.5); WBC 9.8 k/uL (4.0-11.0)
[2018-06-12 07:01] LABS: ALT 22 U/L (9-52); AST 13 U/L (14-36); Albumin 2.8 g/dL (3.5-5.0); Alkaline Phosphatase 57 U/L (38-126); Anion Gap 6 mmol/L; Blood Urea Nitrogen 9 mg/dL (7-17); Calcium 8.2 mg/dL (8.4-10.2); Carbon Dioxide 23 mmol/L (22-30); Chloride 110 mmol/L (98-107); Glucose 92 mg/dL (74-99); Potassium 3.9 mmol/L (3.5-5.1); Sodium 139 mmol/L (137-145); Total Bilirubin 0.4 mg/dL (0.2-1.3); Total Protein 5.4 g/dL (6.3-8.2)
[2018-06-12] MEDS: PANTOPRAZOLE 40 MG/10 ML VIAL IV SCH (09:14)
[2018-06-12] MEDS: Acetaminophen-Codeine 300-30mg TAB PO PRN ×2 (09:16→16:07)
--- NOTE | 2018-06-12 12:04 | P.PN ---
Subjective Progress Note Date: 06/12/18 This is a 17-year-old female, a patient of Dr. Latif. She has a known past medical history of polycystic kidney disease. She's had previous urinary tract infections in the past. Patient presents to the hospital complaining of right- sided flank pain for 2 days. She reports that her urine is very dark and there was blood at present in the urine. She's also had fevers and chills. She had a temp of 103.5 and white count 19.4 on admission. Urinalysis shows evidence of a UTI. Renal ultrasound showing multiple bilateral renal cysts. This raises the possibility of adult type polycystic kidney disease. Kidneys are relatively large. No hydronephrosis. There are echogenic foci in the renal sinus on the right side could be nonobstructing calculi. Urology has been consulted. Patient on IV Rocephin. Continue IV fluids. Continue, codeine for pain control and fever as well as Motrin. Patient denies any nausea or vomiting , bowel movement changes or urinary symptoms. 06/12/18 patient still complaining of right flank pain. T-max of 102.1. Did have a low-grade temp of 100 this morning. She is receiving Motrin and Tylenol with codeine. Denies any nausea or vomiting. Denies any burning with urination. Reports no bowel movement 2 days. Denies any chest pain or shortness of breath. Does not want stool softener at this time. Objective - Vital Signs Vital signs: Vital Signs Temp 100 F H 06/12/18 09:26 Pulse 85 06/12/18 09:26 Resp 16 06/12/18 09:26 BP 108/65 06/12/18 09:26 Pulse Ox 95 06/12/18 09:26 Intake & Output 06/11/18 06/12/18 06/12/18 18:59 06:59 18:59 Intake Total 1800 240 Output Total 300 1150 Balance 1500 -1150 240 Intake: Oral 1800 240 Output: Urine 300 1150 Other: Voiding Method Toilet Toilet - Exam Head normocephalic Neck supple Lungs clear to auscultation bilaterally no wheezing or crackles Heart regular rate and rhythm S1-S2, no rub or gallop Abdomen is soft positive bowel sounds right flank tenderness right-sided abdominal tenderness Extremities no edema Neuro alert and orientated to 3 - Labs CBC & Chem 7: 06/12/18 06:10 06/12/18 06:10 Labs: Abnormal Lab Results - Last 24 Hours (Table) 06/12/18 06/12/18 Range/Units 06:10 06:10 RBC 3.60 L (3.80-5.40) m/uL Hgb 10.4 L (11.4-16.0) gm/dL Hct 32.0 L (34.0-46.0) % Chloride 110 H (98-107) mmol/L Calcium 8.2 L (8.4-10.2) mg/dL AST 13 L (14-36) U/L Total Protein 5.4 L (6.3-8.2) g/dL Albumin 2.8 L (3.5-5.0) g/dL Microbiology - Last 24 Hours (Table) 06/10/18 22:00 Blood Culture - Preliminary Blood No Growth after 24 hours Assessment and Plan Assessment: 1. Acute right pyelonephritis with sepsis present on admission: Patient started on IV Rocephin 1 g every 12 hours. Continue with IV fluids. Awaiting urine culture results. White count has normalized. Patient evaluated by urology 2. History of polycystic kidney disease. Urology recommending follow-up as outpatient to establish long-term care 3. Nicotine dependence: Discussed smoking cessation for greater than 3 minutes. 4. Fever spike secondary to the palmar fasciitis. We'll repeat blood culture. Initial blood culture is negative. Continue antibiotics. 5. Right renal calculus: Evaluated by urology. They recommend possible left of treatment of the right renal calculus after infection has cleared. 6. Anemia hemoglobin has dropped to 10.4. Likely related to the IV fluids. Repeat CBC in a.m. Also will check iron studies. GI prophylaxis Protonix and DVT prophylaxis SCDs and ambulate I performed an examination of the patient and discussed their management with the physician Show Operations Supervisor. I have reviewed the Physician Show Operations Supervisor's notes and agree with the documented findings and plan of care
[2018-06-12] MEDS: IBUPROFEN 400 MG TAB PO PRN (15:59)
[2018-06-12] MEDS: ONDANSETRON 4 MG/2 ML VIAL IVP PRN (16:20)
[2018-06-12 18:48] LABS: Iron Saturation 3.2 (12.00-45.00)
[2018-06-13] MEDS: MORPHINE SULFATE 4 MG/ML SYRINGE IV PRN (02:12)
[2018-06-13] MEDS: SODIUM CHLORIDE 0.9% 1,000 ML IV SCH ×2 (02:13→19:30)
[2018-06-13] MEDS: IBUPROFEN 400 MG TAB PO PRN ×3 (07:51→17:37)
[2018-06-13] MEDS: PANTOPRAZOLE 40 MG/10 ML VIAL IV SCH (07:52)
[2018-06-13 08:43] LABS: Basophils % (A) 0 %; Eosinophils # (A) 0.1 k/uL (0-0.7); Eosinophils % (A) 1 %; HCT 34.1 % (34.0-46.0); Lymphocytes # (A) 1.4 k/uL (1.0-4.8); Lymphocytes % (A) 17 %; MCHC 32.4 g/dL (31.0-37.0); MCV 89.7 fL (80.0-100.0); Monocytes # (A) 0.7 k/uL (0-1.0); Monocytes % (A) 8 %; Neutrophils # (A) 5.8 k/uL (1.3-7.7); Neutrophils % (A) 71 %; Platelet Count 173 k/uL (150-450); RDW 13.7 % (11.5-15.5); WBC 8.2 k/uL (4.0-11.0)
[2018-06-13 08:53] LABS: ALT 24 U/L (9-52); AST 18 U/L (14-36); Alkaline Phosphatase 69 U/L (38-126); Anion Gap 4 mmol/L; Blood Urea Nitrogen 6 mg/dL (7-17); Calcium 8.8 mg/dL (8.4-10.2); Carbon Dioxide 28 mmol/L (22-30); Chloride 106 mmol/L (98-107); Glucose 91 mg/dL (74-99); Potassium 4.2 mmol/L (3.5-5.1); Sodium 138 mmol/L (137-145); Total Bilirubin 0.7 mg/dL (0.2-1.3); Total Protein 5.8 g/dL (6.3-8.2)
--- NOTE | 2018-06-13 10:29 | P.PN ---
Subjective Progress Note Date: 06/13/18 This is a 17-year-old female, a patient of Dr. Latif. She has a known past medical history of polycystic kidney disease. She's had previous urinary tract infections in the past. Patient presents to the hospital complaining of right- sided flank pain for 2 days. She reports that her urine is very dark and there was blood at present in the urine. She's also had fevers and chills. She had a temp of 103.5 and white count 19.4 on admission. Urinalysis shows evidence of a UTI. Renal ultrasound showing multiple bilateral renal cysts. This raises the possibility of adult type polycystic kidney disease. Kidneys are relatively large. No hydronephrosis. There are echogenic foci in the renal sinus on the right side could be nonobstructing calculi. Urology has been consulted. Patient on IV Rocephin. Continue IV fluids. Continue, codeine for pain control and fever as well as Motrin. Patient denies any nausea or vomiting , bowel movement changes or urinary symptoms. 06/12/18 patient still complaining of right flank pain. T-max of 102.1. Did have a low-grade temp of 100 this morning. She is receiving Motrin and Tylenol with codeine. Denies any nausea or vomiting. Denies any burning with urination. Reports no bowel movement 2 days. Denies any chest pain or shortness of breath. Does not want stool softener at this time. Objective - Vital Signs Vital signs: Vital Signs Temp 101.0 F H 06/13/18 08:19 Pulse 72 06/13/18 04:00 Resp 18 06/13/18 04:00 BP 110/83 06/13/18 04:00 Pulse Ox 98 06/13/18 04:00 Intake & Output 06/12/18 06/13/18 06/13/18 18:59 06:59 18:59 Intake Total 1240 3320 Output Total 300 Balance 940 3320 Intake: Oral 1240 3320 Output: Urine 300 Other: Voiding Method Toilet Toilet # Voids 1 3 # Emeses 1 - Exam Head normocephalic and atraumatic Neck supple no JVD Lungs clear to auscultation bilaterally no wheezing or crackles Heart regular rate and rhythm S1-S2, no rub or gallop Abdomen is soft positive bowel sounds right flank tenderness right-sided abdominal tenderness Extremities no edema no cyanosis or clubbing Neuro alert and orientated to 3 - Labs CBC & Chem 7: 06/13/18 07:52 06/13/18 07:52 Labs: Abnormal Lab Results - Last 24 Hours (Table) 06/12/18 06/13/18 06/13/18 Range/Units 06:10 07:52 07:52 Hgb 11.0 L (11.4-16.0) gm/dL BUN 6 L (7-17) mg/dL Iron 7 L (50-170) ug/dL TIBC 219 L (228-460) ug/dL Iron Saturation 3.20 L (12.00-45.00) Total Protein 5.8 L (6.3-8.2) g/dL Albumin 3.0 L (3.5-5.0) g/dL Microbiology - Last 24 Hours (Table) 06/10/18 22:00 Urine Culture - Final Urine,Voided Citrobacter murliniae 06/10/18 22:00 Blood Culture - Preliminary Blood No Growth after 48 hours 06/11/18 12:57 Blood Culture - Preliminary Blood No Growth after 24 hours Assessment and Plan Plan: 1. Acute right pyelonephritis with sepsis present on admission: Patient started on IV Rocephin 1 g every 12 hours. Continue with IV fluids. Urine culture is showing Citrobacter for which Rocephin has only intermediate sensitivity patient had another elevated temperature of 101 today Will switch antibiotic to Levaquin 500 mg IV daily Will give dose as soon as possible Will reassess in a.m.. White count has normalized. Patient evaluated by urology 2. History of polycystic kidney disease. Urology recommending follow-up as outpatient to establish long-term care 3. Nicotine dependence: Discussed smoking cessation for greater than 3 minutes. 4. Fever spike secondary to the palmar fasciitis. We'll repeat blood culture. Initial blood culture is negative. Continue antibiotics. 5. Right renal calculus: Evaluated by urology. They recommend possible left of treatment of the right renal calculus after infection has cleared. 6. Anemia hemoglobin has dropped to 10.4. Likely related to the IV fluids. Repeat CBC in a.m. Also will check iron studies. GI prophylaxis Protonix and DVT prophylaxis SCDs and ambulate
[2018-06-13] MEDS: LEVOFLOXACIN 500MG-D5W PMX 500 MG in DEXTROSE/WATER 1 100ML.BAG IVPB SCH (11:19)
[2018-06-13] MEDS: ONDANSETRON 4 MG/2 ML VIAL IVP PRN (14:05)
[2018-06-13] MEDS: Acetaminophen-Codeine 300-30mg TAB PO PRN (19:25)
[2018-06-14] MEDS: ONDANSETRON 4 MG/2 ML VIAL IVP PRN ×2 (00:14→08:18)
[2018-06-14] MEDS: SODIUM CHLORIDE 0.9% 1,000 ML IV SCH ×3 (00:15→23:16)
[2018-06-14] MEDS: ACETAMINOPHEN TAB 325 MG TAB PO PRN ×4 (01:09→19:13)
[2018-06-14 07:29] LABS: Basophils % (A) 1 %; Eosinophils % (A) 1 %; HGB 12.1 gm/dL (11.4-16.0); Hypochromasia Slight; Lymphocytes % (A) 12 %; MCH 28.8 pg (25.0-35.0); MCHC 31.8 g/dL (31.0-37.0); MCV 90.6 fL (80.0-100.0); Mean Platelet Volume 7.3; Monocytes # (A) 0.5 k/uL (0-1.0); Monocytes % (A) 6 %; Neutrophils # (A) 6.4 k/uL (1.3-7.7); Neutrophils % (A) 79 %; Platelet Count 211 k/uL (150-450); RBC 4.19 m/uL (3.80-5.40); RDW 13.6 % (11.5-15.5); WBC 8.2 k/uL (4.0-11.0)
[2018-06-14 07:52] LABS: ALT 27 U/L (9-52); AST 34 U/L (14-36); Albumin 3.4 g/dL (3.5-5.0); Alkaline Phosphatase 71 U/L (38-126); Anion Gap 12 mmol/L; Blood Urea Nitrogen 5 mg/dL (7-17); Calcium 8.9 mg/dL (8.4-10.2); Carbon Dioxide 24 mmol/L (22-30); Chloride 106 mmol/L (98-107); Glucose 101 mg/dL (74-99); Potassium 4.3 mmol/L (3.5-5.1); Sodium 142 mmol/L (137-145); Total Bilirubin 0.7 mg/dL (0.2-1.3); Total Protein 6.5 g/dL (6.3-8.2)
[2018-06-14] MEDS: PANTOPRAZOLE 40 MG/10 ML VIAL IV SCH (08:19)
[2018-06-14] MEDS: IBUPROFEN 400 MG TAB PO PRN ×3 (08:45→20:21)
[2018-06-14] MEDS: LEVOFLOXACIN 500MG-D5W PMX 500 MG in DEXTROSE/WATER 1 100ML.BAG IVPB SCH (10:14)
--- NOTE | 2018-06-14 11:31 | P.PN ---
Subjective Progress Note Date: 06/14/18 This is a 17-year-old female, a patient of Dr. Latif. She has a known past medical history of polycystic kidney disease. She's had previous urinary tract infections in the past. Patient presents to the hospital complaining of right- sided flank pain for 2 days. She reports that her urine is very dark and there was blood at present in the urine. She's also had fevers and chills. She had a temp of 103.5 and white count 19.4 on admission. Urinalysis shows evidence of a UTI. Renal ultrasound showing multiple bilateral renal cysts. This raises the possibility of adult type polycystic kidney disease. Kidneys are relatively large. No hydronephrosis. There are echogenic foci in the renal sinus on the right side could be nonobstructing calculi. Urology has been consulted. Patient on IV Rocephin. Continue IV fluids. Continue, codeine for pain control and fever as well as Motrin. Patient denies any nausea or vomiting , bowel movement changes or urinary symptoms. 06/12/18 patient still complaining of right flank pain. T-max of 102.1. Did have a low-grade temp of 100 this morning. She is receiving Motrin and Tylenol with codeine. Denies any nausea or vomiting. Denies any burning with urination. Reports no bowel movement 2 days. Denies any chest pain or shortness of breath. Does not want stool softener at this time. On 06/13/2018 patient is still having fever and right sided abdominal pain urine culture is positive for Citrobacter, antibiotic will be switched to Levaquin. On 06/14/2018 patient is alert and oriented 3 still having significant fever up to 101 still having some right sided flank pain otherwise there is no complaints, there is no headache or dizziness no chest pain no shortness of breath no cough no nausea or vomiting and no urinary symptoms Objective - Vital Signs Vital signs: Vital Signs Temp 100.6 F H 06/14/18 08:23 Pulse 94 06/14/18 08:23 Resp 18 06/14/18 08:23 BP 113/63 06/14/18 08:23 Pulse Ox 93 L 06/14/18 08:23 Intake & Output 06/13/18 06/14/18 06/14/18 18:59 06:59 18:59 Intake Total 1400 Balance 1400 Intake: Oral 1400 Other: Voiding Method Toilet Toilet Toilet # Voids 2 # Emeses 1 - Exam Head normocephalic and atraumatic Neck supple no JVD Lungs clear to auscultation bilaterally no wheezing or crackles Heart regular rate and rhythm S1-S2, no rub or gallop Abdomen is soft positive bowel sounds right flank tenderness right-sided abdominal tenderness Extremities no edema no cyanosis or clubbing Neuro alert and orientated to 3 - Labs CBC & Chem 7: 06/14/18 07:10 06/14/18 07:10 Labs: Abnormal Lab Results - Last 24 Hours (Table) 06/14/18 Range/Units 07:10 BUN 5 L (7-17) mg/dL Glucose 101 H (74-99) mg/dL Albumin 3.4 L (3.5-5.0) g/dL Microbiology - Last 24 Hours (Table) 06/10/18 22:00 Blood Culture - Preliminary Blood No Growth after 72 hours 06/12/18 15:48 Blood Culture - Preliminary Blood No Growth after 24 hours 06/11/18 12:57 Blood Culture - Preliminary Blood No Growth after 48 hours 06/10/18 22:00 Urine Culture - Final Urine,Voided Citrobacter murliniae Assessment and Plan Plan: 1. Acute right pyelonephritis with sepsis present on admission: Patient started on IV Rocephin 1 g every 12 hours. Continue with IV fluids. Urine culture is showing Citrobacter for which Rocephin has only intermediate sensitivity patient had another elevated temperature of 101 today Will switch antibiotic to Levaquin 500 mg IV daily Will give dose as soon as possible Will reassess in a.m.. White count has normalized. Patient evaluated by urology, at this time due to continued episodes of significantly elevated temperature will proceed with computed tomography scan of the abdomen and pelvis with contrast and consult for infectious disease 2. History of polycystic kidney disease. Urology recommending follow-up as outpatient to establish long-term care 3. Nicotine dependence: Discussed smoking cessation for greater than 3 minutes. 4. Fever spike secondary to the palmar fasciitis. We'll repeat blood culture. Initial blood culture is negative. Continue antibiotics. 5. Right renal calculus: Evaluated by urology. They recommend possible left of treatment of the right renal calculus after infection has cleared. 6. Anemia hemoglobin has dropped to 10.4. Likely related to the IV fluids. Repeat CBC in a.m. Also will check iron studies. GI prophylaxis Protonix and DVT prophylaxis SCDs and ambulate
[2018-06-14] MEDS: IOPAMIDOL-300 CONTRAST 30 ML VIAL (ORAL USE) PO PRN ×2 (12:08→13:02)
--- NOTE | 2018-06-14 14:20 | CT ---
EXAMINATION TYPE: CT abdomen pelvis w con DATE OF EXAM: 06/14/2018 HISTORY: Fever and abdominal/pelvic pain CT DLP: 467.2mGycm Automated Exposure Control for Dose Reduction was Utilized. CONTRAST: CT scan of the abdomen and pelvis is performed with oral and with IV Contrast, patient injected with 100 mL of Isovue 300. COMPARISON: CT abdomen and pelvis from 6 weeks ago. FINDINGS: LUNG BASES: There is small to tiny right pleural effusion with associated compressive atelectasis. LIVER/GB: Cholecystectomy clips are redemonstrated. Liver is upper limits of normal in size. There is mild to moderate central periportal edema, nonspecific finding. PANCREAS: There is stable 9 mm low dense oval lesion mid to distal pancreatic body posteriorly axial image 30 favoring thin-walled cyst. Finding likely on basis of underlying polycystic kidney disease. SPLEEN: Splenomegaly is redemonstrated measuring 16.6 cm long axis coronal image 42. ADRENALS: No significant abnormality is seen. KIDNEYS: Innumerable heterogeneous hypodense lesions throughout both kidneys are redemonstrated felt to reflect multiple thin-walled cysts of varying density. Largest redemonstrated medially lower pole of the right kidney. A more heterogeneous hypodense lesion lateral and superior to this coronal image 46 and axial image 41 is slightly denser than simple fluid, cannot exclude solid lesion at this leve l. Follow-up advised. There are suspected 5-7 calculi lower pole level right kidney axial image 47 re demonstrated. Symmetric cortical medullary uptake and excretion of both kidneys is present without hy dronephrosis bilaterally. Urinary bladder is felt unremarkable and midline of the anterior pelvis. BOWEL: The oral contrast does not reach colonic level making evaluation suboptimal. In addition patie nt has very little intra-abdominal fat making evaluation suboptimal. There is no suspicious small or large bowel dilatation. There is low lying cecum into the right pelvis just above the bladder. No siomara rounding inflammatory change clearly identified. Mild wall thickening in the low-lying cecum and prox imal right colon is suspected. UTERUS/ADNEXA: Heterogeneous anteverted uterus is seen better on current study sagittal images. There is moderate free fluid in pelvis sagittal image 50 on current study. LYMPH NODES: No greater than 1cm abdominal or pelvic lymph nodes are appreciated. OSSEOUS STRUCTURES: No significant abnormality is seen. OTHER: No significant additional abnormality is seen. IMPRESSION: 1. Suboptimal study as detailed above. Appendix difficult to visualize with certainty due to the abov e limitations. No definitive inflammatory change at base of cecum identified. Perhaps mild proximal a cute colitis, correlate clinically. 2. Underlying polycystic kidney disease redemonstrated. Nonobstructing lower pole right renal calculi again seen. Cannot exclude nonsimple cyst laterally mid to lower pole of the right kidney, follow-up renal protocol contrast enhanced MRI is advised. 3. Splenomegaly is seen which may warrant further workup. 4. Liver upper limits of normal size with nonspecific mild/moderate periportal edema. New small tiny right pleural effusion noted.
[2018-06-14] MEDS: CEFEPIME 2 GM in SODIUM CHLORIDE 0.9% 50 ML IVPB SCH ×2 (14:58→21:10)
[2018-06-14 15:27] LABS: Appearance,Urine Clear (Clear); Bilirubin,Urine Negative (Negative); Blood,Urine Small (Negative); Color,Urine Yellow; Glucose,Urine (UA) Negative (Negative); Ketones,Urine Negative (Negative); Leukocyte Esterase,Urine Small (Negative); Nitrite,Urine Negative (Negative); PH, Urine 5.5 (5.0-8.0); Protein,Urine Negative (Negative); RBC,Urine 3 /hpf (0-5); Squamous Epithelial Cell,Urine 6 /hpf (0-4); Urobilinogen,Urine <2.0 mg/dL (<2.0)
[2018-06-14 15:32] LABS: Specific Gravity,Urine >1.050 (1.001-1.035)
[2018-06-14] MEDS: CIPROFLOXACIN HCL 500 MG TAB PO SCH (21:10)
[2018-06-15] MEDS: ACETAMINOPHEN TAB 325 MG TAB PO PRN (01:22)
--- NOTE | 2018-06-15 05:34 | CONS ---
CONSULTATION DATE OF SERVICE: 06/14/2018. REASON FOR CONSULTATION: Pyelonephritis and persistent UTI. HISTORY OF PRESENT ILLNESS: The patient is a 17-year-old female with a past medical history significant for polycystic kidney disease presenting to the ER with chief complaints of fever, rigors, chills and right flank pain. The patient's symptoms have been going on for about 2 to 3 days before she was admitted to the hospital. Pain to the right flank has been sharp almost 10 out of 10 with some radiation to the right groin area. The patient has felt nauseated and episodes of vomiting. No diarrhea though. With these symptoms, the patient was evaluated by the ER physician. On arrival to the ER, the patient did have a fever of 103.5 degrees Fahrenheit, however, for the last few days the patient continued to be running a fever on a daily basis. The patient did have elevated white count 13.4 and a positive UA with more than WBC. The urine culture had been finalized with Citrobacter that has been intermediate to the ceftriaxone that the patient was on. She was switched over to Levaquin. However, because of her persistent fever, I was asked to see the patient for further recommendation regarding antibiotic therapy. REVIEW OF SYSTEMS: CONSTITUTIONAL: Positive for weakness along with the fever. EYES: No complaint. ENT: No complaint. RESPIRATORY: No complaint. CARDIOVASCULAR: No complaint. GENITOURINARY: As per HPI. GASTROINTESTINAL: As per HPI. MUSCULOSKELETAL: No complaint. INTEGUMENTARY: No complaint. PSYCHOLOGICAL: No complaint. ENDOCRINE: No complaint. NEUROLOGIC: No complaint. PAST MEDICAL HISTORY: Polycystic kidney disease, UTI, ADHD. PAST SURGICAL HISTORY: Cholecystectomy. SOCIAL HISTORY: Current everyday smoker. Occasionally drinks. No drug use. FAMILY HISTORY: Sister with history of polycystic kidney disease. ALLERGIES: Allergies to AMPICILLIN, SULBACTAM. MEDICATIONS: Medications include the patient is currently on Tylenol, Levaquin 500 daily, Motrin, morphine sulfate, Narcan, Zofran, Protonix. PHYSICAL EXAMINATION: On examination, blood pressure is 105/67, pulse 85, temperature of 99.4. T-max is 101.2. She is 98% on room air. General description is a young female lying in bed in no distress. No tachypnea or accessory muscle of respiration use. HEENT examination shows no pallor or scleral icterus. Oral mucous membrane is dry. No pharyngeal erythema or thrush. NECK: Trachea central. No thyromegaly. LUNGS: Unlabored breathing, clear to auscultation anteriorly. HEART: S1, S2. Regular rate and rhythm. ABDOMEN: Soft, mildly tender right flank area. No guarding or rigidity. No organomegaly. EXTREMITIES: No edema of feet. SKIN EXAMINATION: No rash or mass palpable. NEUROLOGICAL: Patient is awake, alert, oriented x3. Mood and affect normal. LABS: Hemoglobin is 12.1, white count 13.4. BUN of 5, creatinine 0.6. Electrolytes have been normal. Liver enzymes are normal. Urine has been positive. Urine with Citrobacter. DIAGNOSTIC IMPRESSION AND PLAN: Patient admitted to the hospital with sepsis in the patient did have a fever and elevated white count, tachycardia, source is right-sided pyelonephritis in a patient who did not respond very well to the initial antibiotic coverage and was then to substituted with Rocephin in a patient Citrobacter did show multi-drug resistant pattern in a patient also had polycystic kidney disease with possible component of structural abnormality responsible for more this elevated fever. PLAN: 1. Discontinue the Levaquin. 2. Start patient on cefepime 2 grams q.12 with oral ciprofloxacin. 3. CT of the abdomen and pelvis to make sure no evidence of any abscess. 4. We will follow up on clinical condition and culture to further adjust medication if needed. Thank you for this consultation. Will follow this patient along with you. MMODL / IJN: [id number] /
[2018-06-15 08:08] VITALS: BP 106/66; PULSE 87; RESP 12
[2018-06-15] MEDS: SODIUM CHLORIDE 0.9% 1,000 ML IV SCH (08:24)
[2018-06-15] MEDS: PANTOPRAZOLE 40 MG/10 ML VIAL IV SCH (08:24)
[2018-06-15] MEDS: CIPROFLOXACIN HCL 500 MG TAB PO SCH (08:35)
[2018-06-15] MEDS: CEFEPIME 2 GM in SODIUM CHLORIDE 0.9% 50 ML IVPB SCH (08:35)
[2018-06-15 11:22] LABS: ALT 33 U/L (9-52); AST 33 U/L (14-36); Albumin 2.5 g/dL (3.5-5.0); Alkaline Phosphatase 80 U/L (38-126); Anion Gap 4 mmol/L; Blood Urea Nitrogen 7 mg/dL (7-17); Calcium 8.3 mg/dL (8.4-10.2); Carbon Dioxide 25 mmol/L (22-30); Chloride 108 mmol/L (98-107); Glucose 95 mg/dL (74-99); Sodium 137 mmol/L (137-145); Total Bilirubin 0.3 mg/dL (0.2-1.3); Total Protein 5.1 g/dL (6.3-8.2)
[2018-06-15 11:42] LABS: Basophils % (A) 0 %; Eosinophils # (A) 0.1 k/uL (0-0.7); Eosinophils % (A) 2 %; HCT 31.7 % (34.0-46.0); HGB 10.3 gm/dL (11.4-16.0); Lymphocytes # (A) 0.9 k/uL (1.0-4.8); Lymphocytes % (A) 15 %; MCH 28.9 pg (25.0-35.0); MCHC 32.3 g/dL (31.0-37.0); MCV 89.3 fL (80.0-100.0); Mean Platelet Volume 7.7; Monocytes # (A) 0.3 k/uL (0-1.0); Monocytes % (A) 6 %; Neutrophils # (A) 4.1 k/uL (1.3-7.7); Neutrophils % (A) 73 %; Platelet Count 193 k/uL (150-450); RBC 3.56 m/uL (3.80-5.40); RDW 13.9 % (11.5-15.5); WBC 5.6 k/uL (4.0-11.0)
[2018-06-15 12:05] VITALS: TEMP 98.8
--- NOTE | 2018-06-15 12:51 | P.DS ---
Providers Date of admission: 06/11/18 03:08 Expected date of discharge: 06/15/18 Attending physician: Yen Andrade Consults: 06/11/18 01:06 Consult Physician Stat Consulting Provider: Santino Rangel Consult Reason/Comments: Pyelonephritis, PCKD Do you want consulting provider notified?: Yes, Notify in am 06/14/18 11:26 Consult Physician Routine Consulting Provider: Massimo Kim Consult Reason/Comments: fever Do you want consulting provider notified?: Yes Primary care physician: Cherry Latif Hospital Course: Discharge diagnosis 1. Acute right pyelonephritis with sepsis present on admission 2. History of polycystic kidney disease. Urology recommending follow-up as outpatient to establish long-term care 3. Nicotine dependence: Discussed smoking cessation for greater than 3 minutes. 4. Fever spike secondary to the palmar fasciitis. We'll repeat blood culture. Initial blood culture is negative. Continue antibiotics. 5. Right renal calculus: Evaluated by urology. They recommend possible left of treatment of the right renal calculus after infection has cleared. 6. Iron deficiency anemia: Hemoglobin 10.3 on discharge. Total iron 7. Patient all be given a prescription for ferrous sulfate 325 mg twice a day at discharge. Have her recheck CBC in 3 days with her PCP 7. Possible non-simple cyst laterally mid to lower pole of the right kidney. This was noted on computed tomography scan radiologist recommends follow-up renal protocol contrast enhanced MRI Hospital course This is a 17-year-old female, a patient of Dr. Latif. She has a known past medical history of polycystic kidney disease. She's had previous urinary tract infections in the past. Patient presents to the hospital complaining of right- sided flank pain for 2 days. She reports that her urine is very dark and there was blood at present in the urine. She's also had fevers and chills. She had a temp of 103.5 and white count 19.4 on admission. Urinalysis shows evidence of a UTI. Renal ultrasound showing multiple bilateral renal cysts. This raises the possibility of adult type polycystic kidney disease. Kidneys are relatively large. No hydronephrosis. There are echogenic foci in the renal sinus on the right side could be nonobstructing calculi. Urology has been consulted. Patient on IV Rocephin. Continue IV fluids. Continue, codeine for pain control and fever as well as Motrin. Patient denies any nausea or vomiting , bowel movement changes or urinary symptoms. 06/12/18 patient still complaining of right flank pain. T-max of 102.1. Did have a low-grade temp of 100 this morning. She is receiving Motrin and Tylenol with codeine. Denies any nausea or vomiting. Denies any burning with urination. Reports no bowel movement 2 days. Denies any chest pain or shortness of breath. Does not want stool softener at this time. On 06/13/2018 patient is still having fever and right sided abdominal pain urine culture is positive for Citrobacter, antibiotic will be switched to Levaquin. On 06/14/2018 patient is alert and oriented 3 still having significant fever up to 101 still having some right sided flank pain otherwise there is no complaints, there is no headache or dizziness no chest pain no shortness of breath no cough no nausea or vomiting and no urinary symptoms 06/15/2018 patient has been 24 hours without fever. Patient seen by infectious disease and urology during this admission. Urine culture grew Citrobacter murliniae. Patient antibiotics adjusted per infectious disease. Initially started on Rocephin and switched over to Levaquin. Patient continued to have fevers infectious disease then switched patient to cefepime plus Cipro. Fevers have resolved pain has improved. Infectious diseases recommending Cipro 500 mg twice a day for 12 more days. And that patient should follow-up with Dr. Kim in 1 week. Urology also recommended that patient follows up with urologist regarding her polycystic kidney disease. She is going to need to establish long -term care. Patient had a repeat computed tomography scan of the abdomen completed her Dr. Kim. There is no evidence of abscess. However it did reveal that it could not exclude a non-simple cyst in the laterally mid to lower pole of the right kidney and a follow-up renal protocol contrast enhanced MRI is advised. Patient is educated that she needs to have an MRI regarding this right cyst that appears to be different than her polycystic kidney disease. We'll have her follow-up with her PCP in 3 days. At that time they can recheck the CBC to follow-up on her iron deficiency anemia. Patient given prescription for iron supplement. Also will have her follow-up with her PCP regarding setting up the MRI on the right kidney cyst. Patient is medical stable for discharge. She has been cleared by consulting physicians. Symptoms are improving she needs to continue her antibiotic treatment. Please refer to chart for any further details. Also note during this entire admission blood cultures have remained negative. Her repeat urinalysis showing improvement in her infection. I performed an examination of the patient and discussed their management with the physician [employer]. I have reviewed the Physician [employer]'s notes and agree with the documented findings and plan of care Patient Condition at Discharge: Stable Plan - Discharge Summary Discharge Rx Participant: No New Discharge Prescriptions: New Ciprofloxacin HCl [Cipro] 500 mg PO BID #24 tab Continue Ibuprofen [Motrin Ib] 400 mg PO Q6H PRN PRN Reason: Pain Discharge Medication List Ibuprofen [Motrin Ib] 400 mg PO Q6H PRN 06/10/18 [History] Ciprofloxacin HCl [Cipro] 500 mg PO BID #24 tab 06/15/18 [Rx] Follow up Appointment(s)/Referral(s): Massimo Kim MD [STAFF PHYSICIAN] - 1 Week Cherry Latif MD [Primary Care Provider] - 3 Days Activity/Diet/Wound Care/Special Instructions: DR RANEGL RECOMMENDS OUTPATIENT FOLLOW UP WITH [employer] OF PATIENT'S CHOICE ( POLYCYSTIC KIDNEY) Diet: regular Activity as tolerated Needs to have MRI with contrast outpatient through her PCP for follow up on right renal cyst Discharge Disposition: HOME SELF-CARE
--- NOTE | 2018-06-15 17:56 | PN ---
PROGRESS NOTE DATE OF SERVICE: 06/15/2018 REASON FOR FOLLOWUP: Citrobacter pyelonephritis. INTERVAL HISTORY: The patient's fever has resolved. She is breathing comfortably. The patient's right flank pain has improved. No nausea, vomiting. No abdominal pain, no diarrhea. PHYSICAL EXAMINATION: Blood pressure 106/66, pulse of 87, temperature 98.2. She is 96% on room air. GENERAL DESCRIPTION: A young female lying in bed in no distress. RESPIRATORY SYSTEM: Unlabored breathing. Clear to auscultation anteriorly. HEART: S1, S2, regular rate and rhythm. ABDOMEN: Soft, no tenderness. LABS: Hemoglobin 10.8, white count 5.6, BUN of 7, creatinine 0.62. Blood culture repeat has been negative. DIAGNOSTIC IMPRESSION AND PLAN: Patient with Citrobacter pyelonephritis. The patient at this time will be able to finish therapy with oral Cipro 500 twice a day for the 12 days with close outpatient followup. Plan of care discussed with the admitting team. ADAMA / AALIYAHN: [id number] /
== END 2018-06-15 13:00 | disposition home or self-care (01) | DRG 872 ==
LOC: EC 19:41 → 6PED 06-11 03:08
PROVIDERS: ADMIT Internal Medicine; ATTEND Internal Medicine
DX: A41.89 Other specified sepsis (principal); N10 Acute pyelonephritis; Q61.2 Polycystic kidney, adult type; F90.9 Attention-deficit hyperactivity disorder, unspecified type; M72.8 Other fibroblastic disorders; F17.200 Nicotine dependence, unspecified, uncomplicated; N20.0 Calculus of kidney; Z16.24 Resistance to multiple antibiotics; D50.9 Iron deficiency anemia, unspecified; Z87.440 Personal history of urinary (tract) infections; Z71.6 Tobacco abuse counseling; Z82.71 Family history of polycystic kidney
CPT/HCPCS: 36415; 74177; 76770; 80053; 81001; 81025; 82728; 83540; 83550; 83605; 85025; 85610; 85730; 87040; 87077; 87086; 87186; 93005; 96365; 96375; 99285

== ENCOUNTER 2019-06-04 17:01 | Emergency (ER) | payer OTHER ==
[2019-06-04 17:15] VITALS: RESP 18
--- NOTE | 2019-06-04 18:23 | ED ---
Female Urogenital HPI - General Chief complaint: Vaginal Bleeding Stated complaint: , bleeding Time Seen by Provider: 06/04/19 17:21 Source: patient Mode of arrival: ambulatory Limitations: no limitations - History of Present Illness Initial comments: Patient is a 18-year-old female presenting to the emergency Department with complaints of vaginal bleeding that started today. Patient states she is approximately 6-8 weeks . Patient is . Patient does not have an [employer] yet. She states she is also been having a dull ache in her lower back that started yesterday. Patient does admit to slight increase in urinary frequency. Patient denies burning. Patient denies any lower abdominal discomfort. Patient denies fever, nausea, vomiting. Patient denies any abdominal surgeries. Patient has been having regular bowel movements. Patient has no other complaints at this time. Upon arrival to the ER, vital signs are stable. - Related Data Home Medications Medication Instructions Recorded Confirmed Ibuprofen [Motrin Ib] 400 mg PO Q6H PRN 06/10/18 06/10/18 Previous Rx's Medication Instructions Recorded Ciprofloxacin HCl [Cipro] 500 mg PO BID #24 tab 06/15/18 Ferrous Sulfate [Feosol] 325 mg PO BID #60 tab 06/15/18 Allergies Allergy/AdvReac Type Severity Reaction Status Date / Time ampicillin [From Unasyn] Allergy Mild Rash/Hives Verified 06/04/19 17:16 sulbactam [From Unasyn] Allergy Mild Rash/Hives Verified 06/04/19 17:16 Review of Systems ROS Statement: Those systems with pertinent positive or pertinent negative responses have been documented in the HPI. ROS Other: All systems not noted in ROS Statement are negative. Past Medical History Past Medical History: No Reported History Additional Past Medical History / Comment(s): polycystic kidney disease History of Any Multi-Drug Resistant Organisms: None Reported Past Surgical History: Section, Cholecystectomy Past Anesthesia/Blood Transfusion Reactions: No Reported Reaction Past Psychological History: ADD/ADHD Smoking Status: Current every day smoker Past Alcohol Use History: None Reported Past Drug Use History: None Reported - Past Family History Sister(s) Family Medical History: No Reported History Additional Family Medical History / Comment(s): polycystic kidney disease, adhd General Exam - General Exam Comments Initial Comments: GENERAL: Well-appearing, well-nourished and in no acute distress. HEAD: Atraumatic, normocephalic. EYES: Pupils equal round and reactive to light, extraocular movements intact, sclera anicteric, conjunctiva are normal. ENT: TMs normal, nares patent, oropharynx clear without exudates. Moist mucous membranes. NECK: Normal range of motion, supple without lymphadenopathy or JVD. LUNGS: Breath sounds clear to auscultation bilaterally and equal. No wheezes rales or rhonchi. HEART: Regular rate and rhythm without murmurs, rubs or gallops. ABDOMEN: Soft, nontender, normoactive bowel sounds. No guarding, no rebound. No masses appreciated. EXTREMITIES: Normal range of motion, no pitting or edema. No clubbing or cyanosis. NEUROLOGICAL: Normal speech, normal gait. PSYCH: Normal mood, normal affect. SKIN: Warm, Dry, normal turgor, no rashes or lesions noted. Limitations: no limitations External exam: Present: normal external exam. Absent: swelling, lesions, lacerations Speculum exam: Present: vaginal bleeding. Absent: vaginal discharge, foreign body By manual exam: Present: normal by manual exam Course Vital Signs 06/04/19 17:12 Temperature 98.5 F Pulse Rate 110 H Respiratory 18 Rate Blood Pressure 128/85 O2 Sat by Pulse 100 Oximetry Medical Decision Making - Medical Decision Making Patient is a 18-year-old female presenting with vaginal bleeding. Patient is currently 6-8 weeks . . Patient does not yet have an [employer]. Vital signs are stable, afebrile. Lab work is unremarkable. HCG [place] is 1500. Urine reveals blood, no signs of infection. Trichomonas negative. Gonorrhea, chlamydia, bacterial culture are all pending at this time. Ultrasound shows a small intrauterine gestational sac that corresponds to approximate 5 weeks. Follow-up exam recommended 14 days to confirm a living fetus. I discussed these findings with the patient. Patient stable for discharge at this time and she will follow-up with Dr. Johnson. Return parameters were discussed with the patient she verbalized understanding. Case discussed with Dr. Tyler. - Lab Data Result diagrams: 06/04/19 18:10 06/04/19 18:10 Lab Results 06/04/19 06/04/19 06/04/19 Range/Units 17:40 18:10 18:10 WBC (4.0-11.0) k/uL RBC (3.80-5.40) m/uL Hgb (11.4-16.0) gm/dL Hct (34.0-46.0) % MCV (80.0-100.0) fL MCH (25.0-35.0) pg MCHC (31.0-37.0) g/dL RDW (11.5-15.5) % Plt Count (150-450) k/uL Neutrophils % % Lymphocytes % % Monocytes % % Eosinophils % % Basophils % % Neutrophils # (1.3-7.7) k/uL Lymphocytes # (1.0-4.8) k/uL Monocytes # (0-1.0) k/uL Eosinophils # (0-0.7) k/uL Basophils # (0-0.2) k/uL Sodium (137-145) mmol/L Potassium (3.5-5.1) mmol/L Chloride (98-107) mmol/L Carbon Dioxide (22-30) mmol/L Anion Gap mmol/L BUN (7-17) mg/dL Creatinine (0.52-1.04) mg/dL Est GFR (CKD-EPI)AfAm (>60 ml/min/1.73 sqM) Est GFR (CKD-EPI)NonAf (>60 ml/min/1.73 sqM) Glucose (74-99) mg/dL Calcium (8.4-10.2) mg/dL Total Bilirubin (0.2-1.3) mg/dL AST (14-36) U/L ALT (4-34) U/L Alkaline Phosphatase (38-126) U/L Total Protein (6.3-8.2) g/dL Albumin (3.5-5.0) g/dL HCG, Quant mIU/mL Urine Color Yellow Urine Appearance Clear (Clear) Urine pH 5.5 (5.0-8.0) Ur Specific [place] 1.026 (1.001-1.035) Urine Protein 2+ H (Negative) Urine Glucose (UA) Negative (Negative) Urine Ketones Negative (Negative) Urine Blood Large H (Negative) Urine Nitrite Negative (Negative) Urine Bilirubin Negative (Negative) Urine Urobilinogen <2.0 (<2.0) mg/dL Ur Leukocyte Esterase Negative (Negative) Urine RBC 3 (0-5) /hpf Urine WBC 2 (0-5) /hpf Ur Squamous Epith Cells 6 H (0-4) /hpf Urine Bacteria Rare H (None) /hpf Hyaline Casts 3 H (0-2) /lpf Urine Mucus Many H (None) /hpf Trichomonas Ag (Rapid) Negative (Negative) Blood Type B Positive Blood Type Recheck No Previous Record Bld Type Recheck Status ABR ONLY 06/04/19 06/04/19 Range/Units 18:10 18:10 WBC 7.4 (4.0-11.0) k/uL RBC 4.73 (3.80-5.40) m/uL Hgb 14.2 (11.4-16.0) gm/dL Hct 42.0 (34.0-46.0) % MCV 88.8 (80.0-100.0) fL MCH 30.0 (25.0-35.0) pg MCHC 33.9 (31.0-37.0) g/dL RDW 13.0 (11.5-15.5) % Plt Count 248 (150-450) k/uL Neutrophils % 58 % Lymphocytes % 32 % Monocytes % 6 % Eosinophils % 1 % Basophils % 1 % Neutrophils # 4.3 (1.3-7.7) k/uL Lymphocytes # 2.4 (1.0-4.8) k/uL Monocytes # 0.5 (0-1.0) k/uL Eosinophils # 0.1 (0-0.7) k/uL Basophils # 0.0 (0-0.2) k/uL Sodium 140 (137-145) mmol/L Potassium 3.9 (3.5-5.1) mmol/L Chloride 108 H (98-107) mmol/L Carbon Dioxide 23 (22-30) mmol/L Anion Gap 9 mmol/L BUN 12 (7-17) mg/dL Creatinine 0.74 (0.52-1.04) mg/dL Est GFR (CKD-EPI)AfAm >90 (>60 ml/min/1.73 sqM) Est GFR (CKD-EPI)NonAf >90 (>60 ml/min/1.73 sqM) Glucose 85 (74-99) mg/dL Calcium 9.6 (8.4-10.2) mg/dL Total Bilirubin 0.7 (0.2-1.3) mg/dL AST 18 (14-36) U/L ALT 15 (4-34) U/L Alkaline Phosphatase 51 (38-126) U/L Total Protein 7.2 (6.3-8.2) g/dL Albumin 4.3 (3.5-5.0) g/dL HCG, Quant 1523.9 mIU/mL Urine Color Urine Appearance (Clear) Urine pH (5.0-8.0) Ur Specific [place] (1.001-1.035) Urine Protein (Negative) Urine Glucose (UA) (Negative) Urine Ketones (Negative) Urine Blood (Negative) Urine Nitrite (Negative) Urine Bilirubin (Negative) Urine Urobilinogen (<2.0) mg/dL Ur Leukocyte Esterase (Negative) Urine RBC (0-5) /hpf Urine WBC (0-5) /hpf Ur Squamous Epith Cells (0-4) /hpf Urine Bacteria (None) /hpf Hyaline Casts (0-2) /lpf Urine Mucus (None) /hpf Trichomonas Ag (Rapid) (Negative) Blood Type Blood Type Recheck Bld Type Recheck Status Disposition Clinical Impression: Vaginal bleeding during Disposition: HOME SELF-CARE Condition: Stable Instructions (If sedation given, give patient instructions): Non-Threatening First Trimester Vaginal Bleed (ED) Additional Instructions: Please return to the Emergency Department if symptoms worsen or any other concerns. Follow-up with [employer] as discussed for repeat ultrasound in approximately 2 weeks. Take vitamins. Is patient prescribed a controlled substance at d/c from ED?: No Referrals: Cherry Latif MD [Primary Care Provider] - 1-2 days Ramona Johnson DO [Doctor of Osteopathic Medicine] - 1-2 days
[2019-06-04 18:28] LABS: Basophils % (A) 1 %; Eosinophils # (A) 0.1 k/uL (0-0.7); Eosinophils % (A) 1 %; HGB 14.2 gm/dL (11.4-16.0); Lymphocytes # (A) 2.4 k/uL (1.0-4.8); Lymphocytes % (A) 32 %; MCHC 33.9 g/dL (31.0-37.0); MCV 88.8 fL (80.0-100.0); Mean Platelet Volume 8.2; Monocytes # (A) 0.5 k/uL (0-1.0); Monocytes % (A) 6 %; Neutrophils # (A) 4.3 k/uL (1.3-7.7); Neutrophils % (A) 58 %; Platelet Count 248 k/uL (150-450); RBC 4.73 m/uL (3.80-5.40); WBC 7.4 k/uL (4.0-11.0)
[2019-06-04 18:37] LABS: ALT 15 U/L (4-34); AST 18 U/L (14-36); African American GFR (CKD) >90 (>60 ml/min/1.73 sqM); Albumin 4.3 g/dL (3.5-5.0); Alkaline Phosphatase 51 U/L (38-126); Anion Gap 9 mmol/L; Blood Urea Nitrogen 12 mg/dL (7-17); Calcium 9.6 mg/dL (8.4-10.2); Carbon Dioxide 23 mmol/L (22-30); Chloride 108 mmol/L (98-107); Glucose 85 mg/dL (74-99); Non-African American GFR(CKD) >90 (>60 ml/min/1.73 sqM); Potassium 3.9 mmol/L (3.5-5.1); Sodium 140 mmol/L (137-145); Total Bilirubin 0.7 mg/dL (0.2-1.3); Total Protein 7.2 g/dL (6.3-8.2)
[2019-06-04 18:53] LABS: HCG,Quantitative Serum 1523.9 mIU/mL
[2019-06-04 18:54] LABS: Appearance,Urine Clear (Clear); Bacteria,Urine Rare /hpf; Bilirubin,Urine Negative (Negative); Blood,Urine Large (Negative); Color,Urine Yellow; Glucose,Urine (UA) Negative (Negative); Hyaline Casts,Urine 3 /lpf (0-2); Ketones,Urine Negative (Negative); Leukocyte Esterase,Urine Negative (Negative); Mucus,Urine Many /hpf; Nitrite,Urine Negative (Negative); PH, Urine 5.5 (5.0-8.0); Protein,Urine 2+ (Negative); RBC,Urine 3 /hpf (0-5); Specific Gravity,Urine 1.026 (1.001-1.035); Squamous Epithelial Cell,Urine 6 /hpf (0-4); Urobilinogen,Urine <2.0 mg/dL (<2.0)
--- NOTE | 2019-06-04 19:12 | US ---
EXAMINATION TYPE: Transabdominal DATE OF EXAM: 06/04/2019 6:41 PM COMPARISON: NONE CLINICAL HISTORY: bleeding. brown discharge/bleeding seen today, EXAM PERFORMED: OBTA EXAM MEASUREMENTS: GESTATIONAL AGE / DATING Physician Established: Not yet established Dates by LMP: (6 weeks/2 days) EDC: 01/26/2020 Dates by First Scan: No previous this is first scan Dates by Current Scan for: (5 weeks/3 days) EDC: 02/01/2020 MATERNAL ANATOMY Uterus: 8.2 x 5.0 x 4.5cm Right Ovary: not seen due to bowel gas and enlarging UT Left Ovary: 2.0 x 1.8 x 1.8cm Post CDS / Adnexa: wnl Presence of free fluid: no Presence of corpus luteal cyst: not seen Presence of subchorionic bleed: no GESTATION / SURVEY CRL: not seen yet MSD: 0.7 (5 weeks/3 days) Yolk Sac (normal less than 6mm): not seen, too early Date of LMP: 04/21/2019 Beta HcG (if available): pending IMPRESSION: Small intrauterine gestational sac that corresponds to 5 weeks and 3 days. Follow-up exam recommended in 14 days to confirm a living fetus. No adnexal mass.
[2019-06-04 19:57] VITALS: BP 123/93; PULSE 75; TEMP 97.9
[2019-06-06 13:39] LABS: C. trachomatis,PCR Negative (Neg,Equiv); Chlamydia trachomatis Source Vagina
[2019-06-06 14:13] LABS: N. gonorrhoeae,PCR Negative (Neg,Equiv); Neisseria Source Vagina
== END 2019-06-04 19:50 | disposition home or self-care (01) ==
LOC: EC 17:01
DX: O20.9 Hemorrhage in early pregnancy, unspecified (principal); O99.89 Other specified diseases and conditions complicating pregnancy, childbirth and the puerperium; R31.9 Hematuria, unspecified; M54.5 Low back pain; R35.0 Frequency of micturition; O99.331 Smoking (tobacco) complicating pregnancy, first trimester; F17.200 Nicotine dependence, unspecified, uncomplicated; Z88.0 Allergy status to penicillin; Z98.890 Other specified postprocedural states; Z87.448 Personal history of other diseases of urinary system; Z84.1 Family history of disorders of kidney and ureter; Z3A.01 Less than 8 weeks gestation of pregnancy
CPT/HCPCS: 36415; 76801; 80053; 81001; 84702; 85025; 86900; 86901; 87070; 87491; 87591; 87808; 99284

== ENCOUNTER 2019-07-13 13:38 | Emergency (ER) | payer OTHER ==
[2019-07-13 13:46] VITALS: RESP 16
--- NOTE | 2019-07-13 14:33 | ED ---
Female Urogenital HPI - General Chief complaint: Vaginal Bleeding Stated complaint: 11 weeks , bleeding Time Seen by Provider: 07/13/19 13:59 Source: patient, RN notes reviewed Mode of arrival: ambulatory Limitations: no limitations - History of Present Illness Initial comments: This a 18-year-old female presents emergency Department with chief complaint of vaginal bleeding and . Patient states that she is A0 approximately 11 weeks with moderate bleeding. She states that she had this for about 6 weeks also was evaluated in the emergency department seemed to stop. She has an appointment next week with her DEPUTY ATTORNEY GENERAL Dr. Voss. She contacted him today who advised her to come emergency department. Patient has no complaints of dysuria, rectal bleeding, constipation, diarrhea. No fevers or chills no other associated complaints. Last Menstrual Period: 04/21/19 - Related Data Home Medications Medication Instructions Recorded Confirmed Ibuprofen [Motrin Ib] 400 mg PO Q6H PRN 06/10/18 06/10/18 Previous Rx's Medication Instructions Recorded Ciprofloxacin HCl [Cipro] 500 mg PO BID #24 tab 06/15/18 Ferrous Sulfate [Feosol] 325 mg PO BID #60 tab 06/15/18 Allergies Allergy/AdvReac Type Severity Reaction Status Date / Time ampicillin [From Unasyn] Allergy Mild Rash/Hives Verified 07/13/19 13:46 sulbactam [From Unasyn] Allergy Mild Rash/Hives Verified 07/13/19 13:46 Review of Systems ROS Statement: Those systems with pertinent positive or pertinent negative responses have been documented in the HPI. ROS Other: All systems not noted in ROS Statement are negative. Past Medical History Past Medical History: No Reported History Additional Past Medical History / Comment(s): polycystic kidney disease History of Any Multi-Drug Resistant Organisms: None Reported Past Surgical History: Section, Cholecystectomy Past Anesthesia/Blood Transfusion Reactions: No Reported Reaction Past Psychological History: ADD/ADHD Smoking Status: Current every day smoker Past Alcohol Use History: None Reported Past Drug Use History: None Reported - Past Family History Sister(s) Family Medical History: No Reported History Additional Family Medical History / Comment(s): polycystic kidney disease, adhd General Exam Limitations: no limitations General appearance: alert, in no apparent distress Head exam: Present: atraumatic, normocephalic, normal inspection Eye exam: Present: normal appearance, PERRL, EOMI. Absent: scleral icterus, conjunctival injection, periorbital swelling ENT exam: Present: normal exam, normal oropharynx, mucous membranes moist Neck exam: Present: normal inspection, full ROM. Absent: tenderness, me ningismus, lymphadenopathy Respiratory exam: Present: normal lung sounds bilaterally. Absent: respiratory distress, wheezes, rales, rhonchi, stridor Cardiovascular Exam: Present: regular rate, normal rhythm, normal heart sounds. Absent: systolic murmur, diastolic murmur, rubs, gallop, clicks GI/Abdominal exam: Present: soft, normal bowel sounds. Absent: distended, tenderness, guarding, rebound, rigid Back exam: Absent: CVA tenderness (R), CVA tenderness (L) Course Vital Signs 07/13/19 13:43 Temperature 97.9 F Pulse Rate 88 Respiratory 16 Rate Blood Pressure 129/74 O2 Sat by Pulse 100 Oximetry Medical Decision Making - Medical Decision Making Ultrasound does not reveal any gestational sac IUP does show thickened endometrial area. I discussed the case with Dr. Voss recommended hCG blood work, patient is a follow-up at her scheduled appointment or sooner if needed. I did recommend patient states for bloodwork patient states that she prefers to be discharged and will follow-up on results. - Lab Data Lab Results 07/13/19 Range/Units 14:32 Urine Color Yellow Urine Appearance Clear (Clear) Urine pH 6.0 (5.0-8.0) Ur Specific [place] 1.044 H (1.001-1.035) Urine Protein 3+ H (Negative) Urine Glucose (UA) Negative (Negative) Urine Ketones Trace H (Negative) Urine Blood Small H (Negative) Urine Nitrite Negative (Negative) Urine Bilirubin Negative (Negative) Urine Urobilinogen 3.0 (<2.0) mg/dL Ur Leukocyte Esterase Trace H (Negative) Urine RBC 54 H (0-5) /hpf Urine WBC 17 H (0-5) /hpf Ur Squamous Epith Cells 2 (0-4) /hpf Hyaline Casts 4 H (0-2) /lpf Urine Mucus Many H (None) /hpf Disposition Clinical Impression: Missed Disposition: HOME SELF-CARE Condition: Stable Instructions (If sedation given, give patient instructions): Miscarriage (ED) Additional Instructions: Please return to the Emergency Department if symptoms worsen or any other concerns. Is patient prescribed a controlled substance at d/c from ED?: No Referrals: Cherry Latif MD [Primary Care Provider] - 1-2 days Marky Engle DO [Doctor of Osteopathic Medicine] - 1-2 days Time of Disposition: 15:51
[2019-07-13 14:59] LABS: Appearance,Urine Clear (Clear); Bilirubin,Urine Negative (Negative); Blood,Urine Small (Negative); Color,Urine Yellow; Glucose,Urine (UA) Negative (Negative); Hyaline Casts,Urine 4 /lpf (0-2); Ketones,Urine Trace (Negative); Leukocyte Esterase,Urine Trace (Negative); Mucus,Urine Many /hpf; Nitrite,Urine Negative (Negative); Protein,Urine 3+ (Negative); RBC,Urine 54 /hpf (0-5); Specific Gravity,Urine 1.044 (1.001-1.035); Squamous Epithelial Cell,Urine 2 /hpf (0-4); WBC,Urine 17 /hpf (0-5)
--- NOTE | 2019-07-13 15:25 | US ---
EXAMINATION TYPE: Transabdominal DATE OF EXAM: 07/13/2019 3:06 PM COMPARISON: Prior ultrasound June 04, 2019 CLINICAL HISTORY: heart tones. Suspect abnormal exam within physician office. EXAM PERFORMED: Transabdominal (TA) EXAM MEASUREMENTS: GESTATIONAL AGE / DATING Physician Established: not yet established Dates by LMP: (12 weeks/1 days) EDC: 01/26/20 Dates by First Scan: (11 weeks/1 days) EDC: 02/01/20 Dates by Current Scan for: (11 weeks/1 days) EDC: 02/01/20 MATERNAL ANATOMY Uterus: 8.2 x 4.2 x 5.8cm Right Ovary: 2.9 x 1.8 x 1.8cm Left Ovary: 3.4 x 2.0 x 2.2cm Post CDS / Adnexa: wnl Presence of free fluid: wnl GESTATION / SURVEY IUP: [place] Date of LMP: 04/21/19 Beta HcG (if available): Heterogeneous anteverted uterus with endometrium measuring up to 10 mm in thickness. No gestational s ac, yolk sac, pole identified. No free fluid in pelvic cul-de-sac. Both ovaries seen without suspicious extraovarian adnexal mass. IMPRESSION: Ultrasound findings suggest interval spontaneous , correlate clinically and with beta-hCG values.
[2019-07-13 16:27] VITALS: BP 114/84; PULSE 59; TEMP 98.3
== END 2019-07-13 16:27 | disposition home or self-care (01) ==
LOC: EC 13:38
DX: O02.1 Missed abortion (principal); O99.331 Smoking (tobacco) complicating pregnancy, first trimester; F17.200 Nicotine dependence, unspecified, uncomplicated; Z88.0 Allergy status to penicillin; Z98.890 Other specified postprocedural states; Z3A.11 11 weeks gestation of pregnancy
CPT/HCPCS: 36415; 76801; 81001; 84702; 87086; 99284

== ENCOUNTER 2019-10-13 13:10 | Emergency (ER) | payer OTHER ==
[2019-10-13 13:18] VITALS: PULSE 62; RESP 18; TEMP 97.5
[2019-10-13] MEDS ORDERED: SODIUM CHLORIDE 0.9% 1,000 ML IV ONE (13:20)
[2019-10-13] MEDS ORDERED: SODIUM CHLORIDE 0.9% 500 ML 500 ML IV ONE (13:20)
[2019-10-13] MEDS ORDERED: SODIUM CHLORIDE 0.9% 1,000 ML IV SCH (13:30)
[2019-10-13] MEDS ORDERED: METOCLOPRAMIDE 5 MG/ML 2 ML VIAL IVP STA (13:48)
[2019-10-13 13:49] LABS: Basophils % (A) 0 %; Eosinophils # (A) 0.1 k/uL (0-0.7); Eosinophils % (A) 1 %; HCT 45.7 % (34.0-46.0); HGB 15.4 gm/dL (11.4-16.0); Lymphocytes # (A) 1.5 k/uL (1.0-4.8); Lymphocytes % (A) 14 %; MCH 30.5 pg (25.0-35.0); MCHC 33.7 g/dL (31.0-37.0); MCV 90.5 fL (80.0-100.0); Mean Platelet Volume 7.8; Monocytes # (A) 0.4 k/uL (0-1.0); Monocytes % (A) 3 %; Neutrophils % (A) 81 %; Platelet Count 288 k/uL (150-450); RBC 5.05 m/uL (3.80-5.40); RDW 12.7 % (11.5-15.5); WBC 11.1 k/uL (3.8-10.6)
[2019-10-13 13:59] LABS: ALT 19 U/L (4-34); AST 28 U/L (14-36); African American GFR (CKD) >90 (>60 ml/min/1.73 sqM); Albumin 4.6 g/dL (3.5-5.0); Alkaline Phosphatase 58 U/L (38-126); Anion Gap 10 mmol/L; Blood Urea Nitrogen 8 mg/dL (7-17); Calcium 9.9 mg/dL (8.4-10.2); Carbon Dioxide 18 mmol/L (22-30); Chloride 109 mmol/L (98-107); Glucose 107 mg/dL (74-99); Non-African American GFR(CKD) >90 (>60 ml/min/1.73 sqM); Potassium 3.8 mmol/L (3.5-5.1); Sodium 137 mmol/L (137-145); Total Bilirubin 0.7 mg/dL (0.2-1.3); Total Protein 7.5 g/dL (6.3-8.2)
--- NOTE | 2019-10-13 14:24 | ED ---
Nausea/Vomiting/Diarrhea HPI - General Chief complaint: Nausea/Vomiting/Diarrhea Stated complaint: NAUSEA Time Seen by Provider: 10/13/19 13:19 Source: patient Mode of arrival: wheelchair Limitations: no limitations - History of Present Illness Initial comments: 19-year-old female presenting today for chief complaint of nausea vomiting and x 1 day. Patient states that her last menstrual period was sometime in July she is unsure of the exact date. Patient states she's had positive at home principal test. Patient believes she is around 8-9 weeks . . Patient's history of polycystic kidney disease. She has seen Dr. Voss the past for miscarriage. Patient states that she has been having morning sickness with this however since last night she had increasing nausea as well as uncontrolled vomiting. Patient states she now feels weak and her lips are dry. Patient denies any vaginal bleeding or abdominal pain. Patient denies dysuria urgency frequency. Patient denies fevers chest pain shortness of breath patient has no additional complaints upon arrival patient appears well no acute distress there is no active vomiting at this time however she is complaining of nausea. - Related Data Home Medications Medication Instructions Recorded Confirmed Ibuprofen [Motrin Ib] 400 mg PO Q6H PRN 06/10/18 06/10/18 Previous Rx's Medication Instructions Recorded Ciprofloxacin HCl [Cipro] 500 mg PO BID #24 tab 06/15/18 Ferrous Sulfate [Feosol] 325 mg PO BID #60 tab 06/15/18 Cephalexin [Keflex] 500 mg PO Q12HR 5 Days #10 cap 10/13/19 Ondansetron Odt [Zofran Odt] 4 mg PO Q8HR PRN 2 Days #6 tab 10/13/19 Allergies Allergy/AdvReac Type Severity Reaction Status Date / Time ampicillin [From Unasyn] Allergy Mild Rash/Hives Verified 07/13/19 13:46 sulbactam [From Unasyn] Allergy Mild Rash/Hives Verified 07/13/19 13:46 Review of Systems ROS Statement: Those systems with pertinent positive or pertinent negative responses have been documented in the HPI. ROS Other: All systems not noted in ROS Statement are negative. Past Medical History Past Medical History: No Reported History Additional Past Medical History / Comment(s): polycystic kidney disease History of Any Multi-Drug Resistant Organisms: None Reported Past Surgical History: Section, Cholecystectomy Past Anesthesia/Blood Transfusion Reactions: No Reported Reaction Past Psychological History: ADD/ADHD Smoking Status: Current every day smoker Past Alcohol Use History: None Reported Past Drug Use History: None Reported - Past Family History Sister(s) Family Medical History: No Reported History Additional Family Medical History / Comment(s): polycystic kidney disease, adhd General Exam - General Exam Comments Initial Comments: General: The patient is awake and alert Eye: +3 mm pupils are equal, round and reactive to light, extra-ocular movements are intact. No nystagmus. There is normal conjunctiva bilaterally. No signs of icterus. Ears, nose, mouth and throat: There are moist mucous membranes and no oral lesions. Neck: The neck is supple, there is no tenderness or JVD. Cardiovascular: There is a regular rate and rhythm. No murmur, rub or gallop is appreciated. Respiratory: Lungs are clear to auscultation, respirations are non-labored, breath sounds are equal. No wheezes, stridor, rales, or rhonchi. Gastrointestinal: Soft, non-distended, non-tender abdomen without masses or organomegaly noted. There is no rebound or guarding present. No CVA tenderness. Musculoskeletal: Normal ROM, no tenderness. Strength 5/5. Sensation intact. Radial pulses equal bilaterally 2+. Neurological: A&O x 3. CN II-XII intact grossly, There are no obvious motor or sensory deficits. Coordination appears grossly intact. Speech is normal. Skin: Skin is warm and dry and no rashes or lesions are noted. Psychiatric: Cooperative, appropriate mood & affect, normal judgment. Limitations: no limitations Course Vital Signs 10/13/19 10/13/19 13:14 16:25 Temperature 97.5 F L Pulse Rate 62 62 Respiratory 18 18 Rate Blood Pressure 122/56 136/74 O2 Sat by Pulse 99 100 Oximetry - Reevaluation(s) Reevaluation #1: 10/13/19 refused pelvic Medical Decision Making - Medical Decision Making 19-year-old female presenting today for chief complaint of vomiting in x 1 day. No vaginal bleeding. What is thought to be implantation bleeding was noted on ultrasound otherwise no complicating process of the intrauterine . Patient is in no pain no vaginal bleeding. B+. HCG elevated. Patient +3 ketones but given IV hydration, tolerating oral intake. Given short course of zofran. instructed to f/u with OBGYN, and return for returning/persistent symptoms. Patient agreeable to care plan and discharge. - Lab Data Result diagrams: 10/13/19 13:35 10/13/19 13:35 Lab Results 10/13/19 10/13/19 10/13/19 Range/Units 13:35 13:35 13:35 WBC 11.1 H (3.8-10.6) k/uL RBC 5.05 (3.80-5.40) m/uL Hgb 15.4 (11.4-16.0) gm/dL Hct 45.7 (34.0-46.0) % MCV 90.5 (80.0-100.0) fL MCH 30.5 (25.0-35.0) pg MCHC 33.7 (31.0-37.0) g/dL RDW 12.7 (11.5-15.5) % Plt Count 288 (150-450) k/uL Neutrophils % 81 % Lymphocytes % 14 % Monocytes % 3 % Eosinophils % 1 % Basophils % 0 % Neutrophils # 9.0 H (1.3-7.7) k/uL Lymphocytes # 1.5 (1.0-4.8) k/uL Monocytes # 0.4 (0-1.0) k/uL Eosinophils # 0.1 (0-0.7) k/uL Basophils # 0.0 (0-0.2) k/uL Sodium 137 (137-145) mmol/L Potassium 3.8 (3.5-5.1) mmol/L Chloride 109 H (98-107) mmol/L Carbon Dioxide 18 L (22-30) mmol/L Anion Gap 10 mmol/L BUN 8 (7-17) mg/dL Creatinine 0.61 (0.52-1.04) mg/dL Est GFR (CKD-EPI)AfAm >90 (>60 ml/min/1.73 sqM) Est GFR (CKD-EPI)NonAf >90 (>60 ml/min/1.73 sqM) Glucose 107 H (74-99) mg/dL Calcium 9.9 (8.4-10.2) mg/dL Total Bilirubin 0.7 (0.2-1.3) mg/dL AST 28 (14-36) U/L ALT 19 (4-34) U/L Alkaline Phosphatase 58 (38-126) U/L Total Protein 7.5 (6.3-8.2) g/dL Albumin 4.6 (3.5-5.0) g/dL HCG, Quant 60082.3 mIU/mL Urine Color Urine Appearance (Clear) Urine pH (5.0-8.0) Ur Specific [place] (1.001-1.035) Urine Protein (Negative) Urine Glucose (UA) (Negative) Urine Ketones (Negative) Urine Blood (Negative) Urine Nitrite (Negative) Urine Bilirubin (Negative) Urine Urobilinogen (<2.0) mg/dL Ur Leukocyte Esterase (Negative) Urine RBC (0-5) /hpf Urine WBC (0-5) /hpf Ur Squamous Epith Cells (0-4) /hpf Urine Bacteria (None) /hpf Urine Mucus (None) /hpf 10/13/19 Range/Units 15:30 WBC (3.8-10.6) k/uL RBC (3.80-5.40) m/uL Hgb (11.4-16.0) gm/dL Hct (34.0-46.0) % MCV (80.0-100.0) fL MCH (25.0-35.0) pg MCHC (31.0-37.0) g/dL RDW (11.5-15.5) % Plt Count (150-450) k/uL Neutrophils % % Lymphocytes % % Monocytes % % Eosinophils % % Basophils % % Neutrophils # (1.3-7.7) k/uL Lymphocytes # (1.0-4.8) k/uL Monocytes # (0-1.0) k/uL Eosinophils # (0-0.7) k/uL Basophils # (0-0.2) k/uL Sodium (137-145) mmol/L Potassium (3.5-5.1) mmol/L Chloride (98-107) mmol/L Carbon Dioxide (22-30) mmol/L Anion Gap mmol/L BUN (7-17) mg/dL Creatinine (0.52-1.04) mg/dL Est GFR (CKD-EPI)AfAm (>60 ml/min/1.73 sqM) Est GFR (CKD-EPI)NonAf (>60 ml/min/1.73 sqM) Glucose (74-99) mg/dL Calcium (8.4-10.2) mg/dL Total Bilirubin (0.2-1.3) mg/dL AST (14-36) U/L ALT (4-34) U/L Alkaline Phosphatase (38-126) U/L Total Protein (6.3-8.2) g/dL Albumin (3.5-5.0) g/dL HCG, Quant mIU/mL Urine Color Yellow Urine Appearance Clear (Clear) Urine pH 8.0 (5.0-8.0) Ur Specific [place] 1.023 (1.001-1.035) Urine Protein 1+ H (Negative) Urine Glucose (UA) Negative (Negative) Urine Ketones 3+ H (Negative) Urine Blood Negative (Negative) Urine Nitrite Negative (Negative) Urine Bilirubin Negative (Negative) Urine Urobilinogen <2.0 (<2.0) mg/dL Ur Leukocyte Esterase Small H (Negative) Urine RBC 2 (0-5) /hpf Urine WBC 7 H (0-5) /hpf Ur Squamous Epith Cells 2 (0-4) /hpf Urine Bacteria Rare H (None) /hpf Urine Mucus Many H (None) /hpf Disposition Clinical Impression: Leukocytes in urine, Vomiting affecting , Nausea/vomiting in Disposition: HOME SELF-CARE Condition: Good Additional Instructions: Please use medication as discussed. Please follow-up with OBGYN in next week. Please return to emergency room if the symptoms increase or worsen or for any other concerns. Prescriptions: Cephalexin [Keflex] 500 mg PO Q12HR 5 Days #10 cap Ondansetron Odt [Zofran Odt] 4 mg PO Q8HR PRN 2 Days #6 tab PRN Reason: Nausea Is patient prescribed a controlled substance at d/c from ED?: No Referrals: Cherry Latif MD [Primary Care Provider] - 1-2 days Marky Engle DO [Doctor of Osteopathic Medicine] - 1-2 days Time of Disposition: 16:01
--- NOTE | 2019-10-13 14:42 | US ---
EXAMINATION TYPE: Transabdominal DATE OF EXAM: 10/13/2019 2:29 PM COMPARISON: Prior ultrasound July 13, 2019 CLINICAL HISTORY: preg and cramp. Vomiting x 1 day, patient states no bleeding or cramping, 3 , para 1, miscarriage 3 months earlier. EXAM PERFORMED: Transabdominal (TA) EXAM MEASUREMENTS: GESTATIONAL AGE / DATING Physician Established: Not established yet Dates by LMP: Unknown Dates by First Scan: This is 1st scan Dates by Current Scan for: (8 weeks/4 days) EDC: 05/20/2020 MATERNAL ANATOMY Uterus: 8.9 x 6.1 x 7.3cm Right Ovary: 3.6 x 1.3 x 1.9cm Left Ovary: 3.0 x 1.9 x 2.5cm Post CDS / Adnexa: wnl Presence of free fluid: wnl Presence of corpus luteal cyst: not seen Presence of subchorionic bleed: yes: 2.3 x 1.7 x 2.9cm GESTATION / SURVEY CRL: 2.0cm (8 weeks/4 days) Yolk Sac (normal less than 6mm): 5.2mm Heart Rate: 179 bpm Rhythm: Normal IUP: Viable IUP Date of LMP: Unknown Beta HcG (if available): Not available at time of exam. Viable single IUP measuring 8 weeks 4 days with a heart rate of 179bpm and an estimated delivery date of 05/20/2020. Confirmation of single live intrauterine gestation current study with gestational sac, yolk sac, and pole seen. Last few images show small hypoechoic irregular 2.3 x 1.7 cm lesion near gestational sac likely reflecting implantation bleed. No free fluid in pelvic cul-de-sac. Both ovaries seen without suspicious extraovarian adnexal mass. IMPRESSION: Confirmation of single live intrauterine gestation on current study, mean crown-rump paulette th is 2.0 cm corresponding to 8 week 4 day old fetus.
[2019-10-13] MEDS ORDERED: ONDANSETRON 4 MG/2 ML VIAL IVP STA (14:47)
[2019-10-13 15:52] LABS: Appearance,Urine Clear (Clear); Bacteria,Urine Rare /hpf; Bilirubin,Urine Negative (Negative); Blood,Urine Negative (Negative); Color,Urine Yellow; Glucose,Urine (UA) Negative (Negative); Ketones,Urine 3+ (Negative); Leukocyte Esterase,Urine Small (Negative); Mucus,Urine Many /hpf; Nitrite,Urine Negative (Negative); Protein,Urine 1+ (Negative); RBC,Urine 2 /hpf (0-5); Specific Gravity,Urine 1.023 (1.001-1.035); Squamous Epithelial Cell,Urine 2 /hpf (0-4); Urobilinogen,Urine <2.0 mg/dL (<2.0); WBC,Urine 7 /hpf (0-5)
[2019-10-13 16:26] VITALS: BP 136/74
== END 2019-10-13 16:31 | disposition home or self-care (01) ==
LOC: EC 13:10
DX: O21.9 Vomiting of pregnancy, unspecified (principal); O99.89 Other specified diseases and conditions complicating pregnancy, childbirth and the puerperium; D72.829 Elevated white blood cell count, unspecified; O99.331 Smoking (tobacco) complicating pregnancy, first trimester; F17.200 Nicotine dependence, unspecified, uncomplicated; Z3A.08 8 weeks gestation of pregnancy; Z88.1 Allergy status to other antibiotic agents
CPT/HCPCS: 36415; 80053; 85025; 81001; 84702; 76801; 99284; 96374; 96375; 96361 ×2; J2765; J2405

== ENCOUNTER 2019-10-31 17:30 | Emergency (ER) | payer OTHER ==
[2019-10-31 17:38] VITALS: TEMP 98
[2019-10-31] MEDS ORDERED: SODIUM CHLORIDE 0.9% 2,000 ML IV STA (18:15)
[2019-10-31] MEDS ORDERED: METOCLOPRAMIDE 5 MG/ML 2 ML VIAL IVP STA (18:15)
[2019-10-31] MEDS ORDERED: diphenhydrAMINE 50 MG/ML 1 ML VIAL IVP STA ×2 (18:15→20:42)
--- NOTE | 2019-10-31 18:22 | ED ---
Abdominal Pain HPI - General Chief Complaint: Abdominal Pain Stated Complaint: Vomiting,11 weeks Preg Time Seen by Provider: 10/31/19 17:52 Source: patient Mode of arrival: ambulatory Limitations: no limitations - History of Present Illness Initial Comments: 19-year-old female patient who is approximately 10 weeks presents to the emergency department today for evaluation of vomiting. Patient states that she has had excessive morning sickness with this . She is G3, P1, A1, with one spontaneous . States she is having lower back pain and lower abdominal cramping. Denies any abnormal vaginal bleeding or discharge. She den ies any hematuria, dysuria, urinary frequency, urinary urgency. States she does have a history of polycystic kidneys and is concerned for infection. She denies any fever or chills. Denies any diarrhea. Denies any hematemesis, hematochezia, or melena. States that she will be seeing Dr. Engle, but has not been able to get in. Patient denies any recent rash, cough, shortness of breath, chest pain, back pain, numbness, tingling, dizziness, weakness, hematuria, dysuria, urinary urgency, urinary frequency, headache, visual changes, or any other complaints. - Related Data Home Medications Medication Instructions Recorded Confirmed Ibuprofen [Motrin Ib] 400 mg PO Q6H PRN 06/10/18 06/10/18 Previous Rx's Medication Instructions Recorded Ciprofloxacin HCl [Cipro] 500 mg PO BID #24 tab 06/15/18 Ferrous Sulfate [Feosol] 325 mg PO BID #60 tab 06/15/18 Cephalexin [Keflex] 500 mg PO Q12HR 5 Days #10 cap 10/13/19 Ondansetron Odt [Zofran Odt] 4 mg PO Q8HR PRN 2 Days #6 tab 10/13/19 Metoclopramide [Reglan] 10 mg PO Q8H PRN #30 tab 10/31/19 Allergies Allergy/AdvReac Type Severity Reaction Status Date / Time ampicillin [From Unasyn] Allergy Mild Rash/Hives Verified 10/31/19 17:38 sulbactam [From Unasyn] Allergy Mild Rash/Hives Verified 10/31/19 17:38 Review of Systems ROS Statement: Those systems with pertinent positive or pertinent negative responses have been documented in the HPI. ROS Other: All systems not noted in ROS Statement are negative. Past Medical History Past Medical History: No Reported History Additional Past Medical History / Comment(s): polycystic kidney disease History of Any Multi-Drug Resistant Organisms: None Reported Past Surgical History: Section, Cholecystectomy Past Anesthesia/Blood Transfusion Reactions: No Reported Reaction Past Psychological History: ADD/ADHD Smoking Status: Current every day smoker Past Alcohol Use History: None Reported Past Drug Use History: None Reported - Past Family History Sister(s) Family Medical History: No Reported History Additional Family Medical History / Comment(s): polycystic kidney disease, adhd General Exam Limitations: no limitations General appearance: alert, in no apparent distress, other (This is a well- developed, well-nourished adult female patient in mild distress. Vital signs upon presentation are temperature 98.2F, pulse 89, respirations 20, blood pressure 120/53, pulse ox 99% on room air.) Respiratory exam: Present: normal lung sounds bilaterally. Absent: respiratory distress, wheezes, rales, rhonchi, stridor Cardiovascular Exam: Present: regular rate, normal rhythm, normal heart sounds. Absent: systolic murmur, diastolic murmur, rubs, gallop, clicks GI/Abdominal exam: Present: soft, tenderness (Suprapubic tenderness), normal bowel sounds. Absent: distended, guarding, rebound, rigid Neurological exam: Present: alert, oriented X3, CN II-XII intact Psychiatric exam: Present: normal affect, normal mood Skin exam: Present: warm, dry, intact, normal color. Absent: rash Course Vital Signs 10/31/19 10/31/19 17:36 20:22 Temperature 98.0 F Pulse Rate 89 50 L Respiratory 20 18 Rate Blood Pressure 120/53 142/78 O2 Sat by Pulse 99 98 Oximetry Medical Decision Making - Medical Decision Making 19-year-old female patient who is 11 weeks presents to the emergency department today for evaluation of vomiting and abdominal pain. Patient states that she's been vomiting since early this morning. Unable to keep down any food or fluids. States she did take Zofran without relief. Physical examination did reveal soft nontender abdomen. She denied vaginal bleeding or discharge. Labs reviewed and are relatively unremarkable. Ultrasound of the fetus was obtained and showed no acute abnormalities. Urinalysis did show bacteria she was given a dose of antibiotics. She is given IV fluids, antiemetics. Upon reevaluation she does report improvement of symptoms. She has not vomited while here. She'll be given a prescription for Reglan. She'll be discharged to follow-up with her primary care physician for recheck in 1-2 days. She is instructed to follow-up with her PARIMUTUEL TICKET CASHIER. Return parameters were discussed in detail. She verbalizes understanding and agrees with this plan. - Lab Data Result diagrams: 10/31/19 17:55 10/31/19 17:55 Lab Results 10/31/19 10/31/19 10/31/19 Range/Units 17:55 17:55 17:55 WBC 12.3 H (3.8-10.6) k/uL RBC 5.09 (3.80-5.40) m/uL Hgb 15.4 (11.4-16.0) gm/dL Hct 46.9 H (34.0-46.0) % MCV 92.1 (80.0-100.0) fL MCH 30.2 (25.0-35.0) pg MCHC 32.8 (31.0-37.0) g/dL RDW 12.7 (11.5-15.5) % Plt Count 278 (150-450) k/uL Neutrophils % 81 % Lymphocytes % 12 % Monocytes % 5 % Eosinophils % 0 % Basophils % 0 % Neutrophils # 10.0 H (1.3-7.7) k/uL Lymphocytes # 1.5 (1.0-4.8) k/uL Monocytes # 0.6 (0-1.0) k/uL Eosinophils # 0.0 (0-0.7) k/uL Basophils # 0.0 (0-0.2) k/uL Sodium 135 L (137-145) mmol/L Potassium 4.2 (3.5-5.1) mmol/L Chloride 108 H (98-107) mmol/L Carbon Dioxide 18 L (22-30) mmol/L Anion Gap 9 mmol/L BUN 9 (7-17) mg/dL Creatinine 0.49 L (0.52-1.04) mg/dL Est GFR (CKD-EPI)AfAm >90 (>60 ml/min/1.73 sqM) Est GFR (CKD-EPI)NonAf >90 (>60 ml/min/1.73 sqM) Glucose 107 H (74-99) mg/dL Calcium 10.0 (8.4-10.2) mg/dL Total Bilirubin 0.7 (0.2-1.3) mg/dL AST 25 (14-36) U/L ALT 18 (4-34) U/L Alkaline Phosphatase 51 (38-126) U/L Total Protein 7.6 (6.3-8.2) g/dL Albumin 4.4 (3.5-5.0) g/dL Lipase 44 (23-300) U/L Urine Color Yellow Urine Appearance Clear (Clear) Urine pH 8.5 H (5.0-8.0) Ur Specific [place] 1.022 (1.001-1.035) Urine Protein 1+ H (Negative) Urine Glucose (UA) Negative (Negative) Urine Ketones Negative (Negative) Urine Blood Small H (Negative) Urine Nitrite Negative (Negative) Urine Bilirubin Negative (Negative) Urine Urobilinogen <2.0 (<2.0) mg/dL Ur Leukocyte Esterase Trace H (Negative) Urine RBC 35 H (0-5) /hpf Urine WBC 4 (0-5) /hpf Ur Squamous Epith Cells 4 (0-4) /hpf Urine Bacteria Rare H (None) /hpf Urine Mucus Few H (None) /hpf Disposition Clinical Impression: Vomiting during Disposition: HOME SELF-CARE Condition: Good Instructions (If sedation given, give patient instructions): Acute Nausea and Vomiting (ED) Additional Instructions: Start with clear liquid diet and advance as tolerated. Take medications as instructed. Follow-up with [employer] TICKET C[employer]IER as soon as possible. Return to the emergency department immediately for any new, worsening, or concerning symptoms. Prescriptions: Metoclopramide [Reglan] 10 mg PO Q8H PRN #30 tab PRN Reason: Vomiting Is patient prescribed a controlled substance at d/c from ED?: No Referrals: Cherry Latif MD [Primary Care Provider] - 1-2 days Marky Engle DO [Doctor of Osteopathic Medicine] - 1-2 days Time of Disposition: 21:41
[2019-10-31 18:32] LABS: Basophils % (A) 0 %; Eosinophils % (A) 0 %; HCT 46.9 % (34.0-46.0); HGB 15.4 gm/dL (11.4-16.0); Lymphocytes # (A) 1.5 k/uL (1.0-4.8); Lymphocytes % (A) 12 %; MCH 30.2 pg (25.0-35.0); MCHC 32.8 g/dL (31.0-37.0); MCV 92.1 fL (80.0-100.0); Monocytes # (A) 0.6 k/uL (0-1.0); Monocytes % (A) 5 %; Neutrophils % (A) 81 %; Platelet Count 278 k/uL (150-450); RBC 5.09 m/uL (3.80-5.40); RDW 12.7 % (11.5-15.5); WBC 12.3 k/uL (3.8-10.6)
[2019-10-31 18:35] LABS: Appearance,Urine Clear (Clear); Bacteria,Urine Rare /hpf; Bilirubin,Urine Negative (Negative); Blood,Urine Small (Negative); Color,Urine Yellow; Glucose,Urine (UA) Negative (Negative); Ketones,Urine Negative (Negative); Leukocyte Esterase,Urine Trace (Negative); Mucus,Urine Few /hpf; Nitrite,Urine Negative (Negative); PH, Urine 8.5 (5.0-8.0); Protein,Urine 1+ (Negative); RBC,Urine 35 /hpf (0-5); Specific Gravity,Urine 1.022 (1.001-1.035); Squamous Epithelial Cell,Urine 4 /hpf (0-4); Urobilinogen,Urine <2.0 mg/dL (<2.0); WBC,Urine 4 /hpf (0-5)
[2019-10-31 18:37] LABS: ALT 18 U/L (4-34); AST 25 U/L (14-36); African American GFR (CKD) >90 (>60 ml/min/1.73 sqM); Albumin 4.4 g/dL (3.5-5.0); Alkaline Phosphatase 51 U/L (38-126); Anion Gap 9 mmol/L; Blood Urea Nitrogen 9 mg/dL (7-17); Carbon Dioxide 18 mmol/L (22-30); Chloride 108 mmol/L (98-107); Glucose 107 mg/dL (74-99); Non-African American GFR(CKD) >90 (>60 ml/min/1.73 sqM); Potassium 4.2 mmol/L (3.5-5.1); Sodium 135 mmol/L (137-145); Total Bilirubin 0.7 mg/dL (0.2-1.3); Total Protein 7.6 g/dL (6.3-8.2)
[2019-10-31] MEDS ORDERED: PYRIDOXINE 100 MG/ML 1 ML VIAL IVP STA (19:40)
--- NOTE | 2019-10-31 20:13 | US ---
EXAMINATION TYPE: Transabdominal DATE OF EXAM: 10/31/2019 7:03 PM COMPARISON: Present exam 10/13/2019 CLINICAL HISTORY: Abd pain 10 weeks preg. EXAM PERFORMED: Transabdominal (TA) EXAM MEASUREMENTS: GESTATIONAL AGE / DATING Physician Established: Not yet established Dates by LMP: LMP unknown Dates by First Scan: (11 weeks/2 days) EDC: 05/20/20 Dates by Current Scan for: (11 weeks/4 days) EDC: 05/18/20 MATERNAL ANATOMY Uterus: 10.4 x 7.1 x 7.4cm Right Ovary: 2.6 x 1.4 x 1.4cm Left Ovary: obscured by overlying bowel gas Post CDS / Adnexa: wnl Presence of free fluid: no Presence of subchorionic bleed: not on today's ultrasound GESTATION / SURVEY CRL: 4.7cm (11 weeks/4 days) MSD: 3.3cm (8 weeks/2 days) Yolk Sac (normal less than 6mm): 3mm Heart Rate: 175 bpm Rhythm: Normal IUP: Viable IUP Date of LMP: unknown Beta HcG (if available): Not available at this time IMPRESSION: Single viable intrauterine corresponding to an ultrasound age 11 weeks 4 days on crown-rump length, mean sac diameter obtained measures small however, follow-up suggested
[2019-10-31] MEDS ORDERED: cefTRIAXone IN SWFI 1,000 MG/10 ML SYRINGE IVP STA (20:38)
[2019-10-31] MEDS ORDERED: ONDANSETRON 4 MG/2 ML VIAL IVP STA (20:42)
[2019-10-31 22:12] VITALS: BP 121/74; PULSE 86; RESP 16
== END 2019-10-31 22:13 | disposition home or self-care (01) ==
LOC: EC 17:30
DX: O21.9 Vomiting of pregnancy, unspecified (principal); O99.331 Smoking (tobacco) complicating pregnancy, first trimester; F17.200 Nicotine dependence, unspecified, uncomplicated; Z3A.11 11 weeks gestation of pregnancy; Z90.49 Acquired absence of other specified parts of digestive tract; Z88.1 Allergy status to other antibiotic agents
CPT/HCPCS: 99284; 96374; 96375 ×4; 96376; 96361; 36415; 80053; 83690; 85025; 81001; 76801; J1200; J3415; J2765; J2405; J0696

== ENCOUNTER 2019-12-14 10:10 | Emergency (ER) | payer OTHER ==
[2019-12-14 10:29] VITALS: RESP 18
[2019-12-14] MEDS ORDERED: SODIUM CHLORIDE 0.9% 1,000 ML IV STA ×2 (10:35)
--- NOTE | 2019-12-14 10:39 | ED ---
Nausea/Vomiting/Diarrhea HPI - General Chief complaint: Nausea/Vomiting/Diarrhea Stated complaint: back pain, vomiting Time Seen by Provider: 12/14/19 10:15 Source: patient, EMS, RN notes reviewed, old records reviewed Mode of arrival: EMS Limitations: no limitations - History of Present Illness Initial comments: Patient is a 19-year-old female presents emergency department today with flank pain this morning nausea and vomiting. She has a history of polycystic kidney disease. She is also 17 weeks and her TYING MACHINE OPERATOR LUMBER is Dr. Voss. She is a female. Patient reports that she has no vaginal bleeding or discharge. She states that she has a history of kidney infections in the past and ordered this triggered her worsening kidney pain today as well as the nausea and vomiting. She states that she has been treated multiple times during this for her nausea and vomiting and dehydration. Patient has been using Zofran and she ran out of it today as well. She rests from EMS and was given 4 mg of Zofran and morphine IV push by a EMS. - Related Data Home Medications Medication Instructions Recorded Confirmed Tpf-Zgfq-Alwdl Acid 1 cap PO DAILY 12/14/19 12/14/19 [-U Capsule (formulary)] Previous Rx's Medication Instructions Recorded Cephalexin [Keflex] 500 mg PO Q6HR 3 Days #12 cap 12/14/19 Ondansetron Odt [Zofran Odt] 4 mg PO Q8HR PRN #12 tab 12/14/19 Allergies Allergy/AdvReac Type Severity Reaction Status Date / Time ampicillin [From Unasyn] Allergy Mild Rash/Hives Verified 12/14/19 11:31 sulbactam [From Unasyn] Allergy Mild Rash/Hives Verified 12/14/19 11:31 Review of Systems ROS Statement: Those systems with pertinent positive or pertinent negative responses have been documented in the HPI. ROS Other: All systems not noted in ROS Statement are negative. Past Medical History Past Medical History: No Reported History Additional Past Medical History / Comment(s): polycystic kidney disease History of Any Multi-Drug Resistant Organisms: None Reported Past Surgical History: Section, Cholecystectomy Past Anesthesia/Blood Transfusion Reactions: No Reported Reaction Past Psychological History: ADD/ADHD Smoking Status: Current every day smoker Past Alcohol Use History: None Reported Past Drug Use History: Marijuana - Past Family History Sister(s) Family Medical History: No Reported History Additional Family Medical History / Comment(s): polycystic kidney disease, adhd General Exam - General Exam Comments Initial Comments: 19-year-old female. Alert and oriented 3. No distress. Limitations: no limitations General appearance: alert, in no apparent distress Head exam: Present: atraumatic, normocephalic, normal inspection Eye exam: Present: normal appearance, PERRL, EOMI. Absent: scleral icterus, conjunctival injection, periorbital swelling ENT exam: Present: normal exam, mucous membranes moist Neck exam: Present: normal inspection. Absent: tenderness, meningismus, lymphadenopathy Respiratory exam: Present: normal lung sounds bilaterally. Absent: respiratory distress, wheezes, rales, rhonchi, stridor Cardiovascular Exam: Present: regular rate, normal rhythm, normal heart sounds. Absent: systolic murmur, diastolic murmur, rubs, gallop, clicks GI/Abdominal exam: Present: soft, normal bowel sounds. Absent: distended, tenderness, guarding, rebound, rigid Extremities exam: Present: normal inspection, full ROM, normal capillary refill. Absent: tenderness, pedal edema, joint swelling, calf tenderness Back exam: Present: normal inspection, full ROM Neurological exam: Present: alert, oriented X3, CN II-XII intact Psychiatric exam: Present: normal affect, normal mood Skin exam: Present: warm, dry, intact, normal color. Absent: rash Course Vital Signs 12/14/19 10:22 Temperature 97.8 F Pulse Rate 60 Respiratory 18 Rate Blood Pressure 116/62 O2 Sat by Pulse 100 Oximetry - Reevaluation(s) Reevaluation #1: 12/14/19 11:41 heart tones were completed 1 45 bpm. Medical Decision Making - Medical Decision Making Patient is a 19-year-old female presents emergency from today for nausea and vomiting and complaints of flank pain this morning. 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 She does not have a urologist or a cosmetics and toiletries salesperson sent. Patient at this time appears well after receiving Zofran and morphine from EMS. heart tones were completed were 145 beats were minute. She denies any vaginal bleeding or discharge. At this time CBC was unremarkable. She does h ave some trace amount of bacteria in her urine and this will be cultured. Putting the Patient on a short course of Keflex. I discussed following up with primary care doctor in the request a prescription for nausea medicine to go home with. We'll discharge her with Zofran starter pack as well. Discussed return parameters. - Lab Data Result diagrams: 12/14/19 10:46 12/14/19 10:46 Lab Results 12/14/19 12/14/19 12/14/19 Range/Units 10:46 10:46 10:46 WBC 12.0 H (3.8-10.6) k/uL RBC 4.30 (3.80-5.40) m/uL Hgb 13.0 (11.4-16.0) gm/dL Hct 40.5 (34.0-46.0) % MCV 94.2 (80.0-100.0) fL MCH 30.3 (25.0-35.0) pg MCHC 32.2 (31.0-37.0) g/dL RDW 12.7 (11.5-15.5) % Plt Count 195 (150-450) k/uL Neutrophils % 87 % Lymphocytes % 9 % Monocytes % 3 % Eosinophils % 0 % Basophils % 0 % Neutrophils # 10.4 H (1.3-7.7) k/uL Lymphocytes # 1.0 (1.0-4.8) k/uL Monocytes # 0.4 (0-1.0) k/uL Eosinophils # 0.0 (0-0.7) k/uL Basophils # 0.0 (0-0.2) k/uL PT 9.6 (9.0-12.0) sec INR 0.9 (<1.2) APTT 22.2 (22.0-30.0) sec Sodium (137-145) mmol/L Potassium (3.5-5.1) mmol/L Chloride (98-107) mmol/L Carbon Dioxide (22-30) mmol/L Anion Gap mmol/L BUN (7-17) mg/dL Creatinine (0.52-1.04) mg/dL Est GFR (CKD-EPI)AfAm (>60 ml/min/1.73 sqM) Est GFR (CKD-EPI)NonAf (>60 ml/min/1.73 sqM) Glucose (74-99) mg/dL Calcium (8.4-10.2) mg/dL Total Bilirubin (0.2-1.3) mg/dL AST (14-36) U/L ALT (4-34) U/L Alkaline Phosphatase (38-126) U/L Total Protein (6.3-8.2) g/dL Albumin (3.5-5.0) g/dL Amylase (30-110) U/L Lipase (23-300) U/L Urine Color [place] Urine Appearance Slightly Cloudy H (Clear) Urine pH 8.0 (5.0-8.0) Ur Specific [place] 1.000 L (1.001-1.035) Urine Protein 1+ (Negative) Urine Glucose (UA) 1+ (Negative) Urine Ketones Negative (Negative) Urine Blood Negative (Negative) Urine Nitrite Negative (Negative) Urine Bilirubin Negative (Negative) Urine Urobilinogen <2.0 (<2.0) mg/dL Ur Leukocyte Esterase Small (Negative) Urine RBC 3 (0-5) /hpf Urine WBC 2 (0-5) /hpf Ur Squamous Epith Cells 1 (0-4) /hpf Amorphous Sediment Few H (None) /hpf Urine Bacteria Rare H (None) /hpf Urine Mucus Rare H (None) /hpf 12/14/19 Range/Units 10:46 WBC (3.8-10.6) k/uL RBC (3.80-5.40) m/uL Hgb (11.4-16.0) gm/dL Hct (34.0-46.0) % MCV (80.0-100.0) fL MCH (25.0-35.0) pg MCHC (31.0-37.0) g/dL RDW (11.5-15.5) % Plt Count (150-450) k/uL Neutrophils % % Lymphocytes % % Monocytes % % Eosinophils % % Basophils % % Neutrophils # (1.3-7.7) k/uL Lymphocytes # (1.0-4.8) k/uL Monocytes # (0-1.0) k/uL Eosinophils # (0-0.7) k/uL Basophils # (0-0.2) k/uL PT (9.0-12.0) sec INR (<1.2) APTT (22.0-30.0) sec Sodium 136 L (137-145) mmol/L Potassium 4.1 (3.5-5.1) mmol/L Chloride 110 H (98-107) mmol/L Carbon Dioxide 22 (22-30) mmol/L Anion Gap 4 mmol/L BUN 12 (7-17) mg/dL Creatinine 0.46 L (0.52-1.04) mg/dL Est GFR (CKD-EPI)AfAm >90 (>60 ml/min/1.73 sqM) Est GFR (CKD-EPI)NonAf >90 (>60 ml/min/1.73 sqM) Glucose 101 H (74-99) mg/dL Calcium 8.7 (8.4-10.2) mg/dL Total Bilirubin 0.4 (0.2-1.3) mg/dL AST 21 (14-36) U/L ALT 16 (4-34) U/L Alkaline Phosphatase 47 (38-126) U/L Total Protein 6.3 (6.3-8.2) g/dL Albumin 3.5 (3.5-5.0) g/dL Amylase <30 L (30-110) U/L Lipase 61 (23-300) U/L Urine Color Urine Appearance (Clear) Urine pH (5.0-8.0) Ur Specific [place] (1.001-1.035) Urine Protein (Negative) Urine Glucose (UA) (Negative) Urine Ketones (Negative) Urine Blood (Negative) Urine Nitrite (Negative) Urine Bilirubin (Negative) Urine Urobilinogen (<2.0) mg/dL Ur Leukocyte Esterase (Negative) Urine RBC (0-5) /hpf Urine WBC (0-5) /hpf Ur Squamous Epith Cells (0-4) /hpf Amorphous Sediment (None) /hpf Urine Bacteria (None) /hpf Urine Mucus (None) /hpf - Radiology Data Radiology results: report reviewed Disposition Clinical Impression: Nausea & vomiting, Bacteriuria during Disposition: HOME SELF-CARE Condition: Stable Instructions (If sedation given, give patient instructions): Acute Nausea and Vomiting (ED) Additional Instructions: Please use medication as discussed. Please follow up with family doctor if symptoms have not improved over the next two days. Please return to the emergency room if your symptoms increase or worsen or for any other concerns. Prescriptions: Cephalexin [Keflex] 500 mg PO Q6HR 3 Days #12 cap Ondansetron Odt [Zofran Odt] 4 mg PO Q8HR PRN #12 tab PRN Reason: Is patient prescribed a controlled substance at d/c from ED?: No Referrals: Cherry Latif MD [Primary Care Provider] - 1-2 days Time of Disposition: 11:42
[2019-12-14 11:10] LABS: Basophils % (A) 0 %; Eosinophils % (A) 0 %; HCT 40.5 % (34.0-46.0); Lymphocytes % (A) 9 %; MCH 30.3 pg (25.0-35.0); MCHC 32.2 g/dL (31.0-37.0); MCV 94.2 fL (80.0-100.0); Monocytes # (A) 0.4 k/uL (0-1.0); Monocytes % (A) 3 %; Neutrophils # (A) 10.4 k/uL (1.3-7.7); Neutrophils % (A) 87 %; Platelet Count 195 k/uL (150-450); RDW 12.7 % (11.5-15.5)
[2019-12-14 11:13] LABS: INR 0.9 (<1.2); Partial Thromboplastin Time 22.2 sec (22.0-30.0); Prothrombin Time 9.6 sec (9.0-12.0)
[2019-12-14 11:20] LABS: Amorphous Sediment,Urine Few /hpf; Appearance,Urine Slightly Cloudy (Clear); Bacteria,Urine Rare /hpf; Color,Urine Amber; Glucose,Urine (UA) 1+ (Negative); Mucus,Urine Rare /hpf; Protein,Urine 1+ (Negative); RBC,Urine 3 /hpf (0-5); Squamous Epithelial Cell,Urine 1 /hpf (0-4); WBC,Urine 2 /hpf (0-5)
[2019-12-14 11:21] LABS: ALT 16 U/L (4-34); AST 21 U/L (14-36); African American GFR (CKD) >90 (>60 ml/min/1.73 sqM); Albumin 3.5 g/dL (3.5-5.0); Alkaline Phosphatase 47 U/L (38-126); Amylase <30 U/L (30-110); Anion Gap 4 mmol/L; Bilirubin,Urine Negative (Negative); Blood Urea Nitrogen 12 mg/dL (7-17); Blood,Urine Negative (Negative); Calcium 8.7 mg/dL (8.4-10.2); Carbon Dioxide 22 mmol/L (22-30); Chloride 110 mmol/L (98-107); Glucose 101 mg/dL (74-99); Ketones,Urine Negative (Negative); Leukocyte Esterase,Urine Small (Negative); Nitrite,Urine Negative (Negative); Non-African American GFR(CKD) >90 (>60 ml/min/1.73 sqM); Potassium 4.1 mmol/L (3.5-5.1); Sodium 136 mmol/L (137-145); Total Bilirubin 0.4 mg/dL (0.2-1.3); Total Protein 6.3 g/dL (6.3-8.2); Urobilinogen,Urine <2.0 mg/dL (<2.0)
[2019-12-14] MEDS ORDERED: ONDANSETRON 4 MG ODT STARTER PACK 2 TAB BTL PO STA (11:44)
[2019-12-14 11:52] VITALS: BP 126/72; PULSE 77; TEMP 98.1
== END 2019-12-14 11:51 | disposition home or self-care (01) ==
LOC: EC 10:10
DX: O21.0 Mild hyperemesis gravidarum (principal); O26.892 Other specified pregnancy related conditions, second trimester; R82.71 Bacteriuria; R10.9 Unspecified abdominal pain; O99.332 Smoking (tobacco) complicating pregnancy, second trimester; F17.200 Nicotine dependence, unspecified, uncomplicated; Z88.1 Allergy status to other antibiotic agents; Z3A.17 17 weeks gestation of pregnancy; Z90.49 Acquired absence of other specified parts of digestive tract
CPT/HCPCS: 36415; 80053; 82150; 83690; 85025; 85610; 85730; 81001; 96360; 99284; S0119

== ENCOUNTER 2019-12-26 09:11 | Emergency (ER) | payer OTHER ==
[2019-12-26 09:20] VITALS: RESP 18; TEMP 97
[2019-12-26] MEDS ORDERED: METOCLOPRAMIDE 5 MG/ML 2 ML VIAL IVP STA (09:26)
[2019-12-26] MEDS ORDERED: SODIUM CHLORIDE 0.9% 1,000 ML IV ONE (09:26)
[2019-12-26] MEDS ORDERED: diphenhydrAMINE 50 MG/ML 1 ML VIAL IVP STA (09:26)
[2019-12-26] MEDS ORDERED: SODIUM CHLORIDE 0.9% 1,000 ML IV SCH (09:30)
--- NOTE | 2019-12-26 09:49 | ED ---
Back Pain HPI - General Chief Complaint: Back Pain/Injury Stated Complaint: 19 Wks Preg, Nausea, Back Pain Time Seen by Provider: 12/26/19 09:18 Source: patient, RN notes reviewed, old records reviewed Limitations: no limitations - History of Present Illness Initial Comments: Pat is a 19-year-old female with history of polycystic kidney disease. She presents emergency Department today with complaints of nausea and vomiting starting at 5:30 this morning. She is approximately 19 weeks . Patient has chronic back pain throughout this reports it's been specifically worse for the past month.. She denies any changes in urination. [employer] is Dr. Voss. She is a female. Denies any vaginal bleeding or discharge today. - Related Data Previous Rx's Medication Instructions Recorded Ondansetron Odt [Zofran Odt] 4 mg PO Q8HR PRN #12 tab 12/26/19 Allergies Allergy/AdvReac Type Severity Reaction Status Date / Time ampicillin [From Unasyn] Allergy Mild Rash/Hives Verified 12/26/19 11:24 sulbactam [From Unasyn] Allergy Mild Rash/Hives Verified 12/26/19 11:24 Review of Systems ROS Statement: Those systems with pertinent positive or pertinent negative responses have been documented in the HPI. ROS Other: All systems not noted in ROS Statement are negative. Past Medical History Past Medical History: No Reported History Additional Past Medical History / Comment(s): polycystic kidney disease History of Any Multi-Drug Resistant Organisms: None Reported Past Surgical History: Section, Cholecystectomy Past Anesthesia/Blood Transfusion Reactions: No Reported Reaction Past Psychological History: ADD/ADHD Smoking Status: Current every day smoker Past Alcohol Use History: None Reported Past Drug Use History: Marijuana - Past Family History Sister(s) Family Medical History: No Reported History Additional Family Medical History / Comment(s): polycystic kidney disease, adhd General Exam - General Exam Comments Initial Comments: 19-year-old female. Patient is actively retching. Limitations: no limitations General appearance: alert, in no apparent distress Head exam: Present: atraumatic, normocephalic, normal inspection Eye exam: Present: normal appearance, PERRL, EOMI. Absent: scleral icterus, conjunctival injection, periorbital swelling ENT exam: Present: normal exam, mucous membranes moist Neck exam: Present: normal inspection. Absent: tenderness, meningismus, lymphadenopathy Respiratory exam: Present: normal lung sounds bilaterally. Absent: respiratory distress, wheezes, rales, rhonchi, stridor Cardiovascular Exam: Present: regular rate, normal rhythm, normal heart sounds. Absent: systolic murmur, diastolic murmur, rubs, gallop, clicks GI/Abdominal exam: Present: soft, normal bowel sounds. Absent: distended, tenderness, guarding, rebound, rigid Extremities exam: Present: normal inspection, full ROM, normal capillary refill. Absent: tenderness, pedal edema, joint swelling, calf tenderness Back exam: Present: normal inspection, tenderness (Over lumbar spine) Neurological exam: Present: alert, oriented X3, CN II-XII intact Psychiatric exam: Present: normal affect, normal mood Skin exam: Present: warm Course Vital Signs 12/26/19 12/26/19 09:14 13:14 Temperature 97 F L Pulse Rate 72 65 Respiratory 18 18 Rate Blood Pressure 118/98 112/67 O2 Sat by Pulse 98 97 Oximetry Medical Decision Making - Medical Decision Making Patient is a 19-year-old female presents or tremors today for evaluation for concern for back pain nausea and vomiting. She reports that back pains been worse for the past month. At this time Patient should also show mild dehydration no blood or signs of infection. Patient did have some vomiting and emergency department. He is given IV fluids and Reglan and Benadryl later Zofran. CBC and CMP are unremarkable. Due to persistent back ultrasound as she has a known history of polycystic kidney disease. Ultrasound shows evidence of renal cysts bilaterally but no sizable hydronephrosis. There is right-sided nephrolithiasis. Discussed local clinical suspicion of passing a kidney stone she reports the same pain for the past month. Patient was advised to follow-up with her [employer]. Take Tylenol for pain. Discharged with prescription for Zofran. She has an appointment with her [employer] tomorrow. heart tones were also obtained and normal within the 1 50 bpm. - Lab Data Result diagrams: 12/26/19 09:56 12/26/19 09:56 Lab Results 12/26/19 12/26/19 12/26/19 Range/Units 09:56 09:56 09:56 WBC 12.4 H (3.8-10.6) k/uL RBC 4.65 (3.80-5.40) m/uL Hgb 14.7 (11.4-16.0) gm/dL Hct 43.6 (34.0-46.0) % MCV 93.8 (80.0-100.0) fL MCH 31.6 (25.0-35.0) pg MCHC 33.7 (31.0-37.0) g/dL RDW 12.8 (11.5-15.5) % Plt Count 241 (150-450) k/uL Neutrophils % 80 % Lymphocytes % 14 % Monocytes % 4 % Eosinophils % 1 % Basophils % 0 % Neutrophils # 9.9 H (1.3-7.7) k/uL Lymphocytes # 1.7 (1.0-4.8) k/uL Monocytes # 0.5 (0-1.0) k/uL Eosinophils # 0.1 (0-0.7) k/uL Basophils # 0.0 (0-0.2) k/uL Sodium 136 L (137-145) mmol/L Potassium 3.8 (3.5-5.1) mmol/L Chloride 108 H (98-107) mmol/L Carbon Dioxide 20 L (22-30) mmol/L Anion Gap 8 mmol/L BUN 10 (7-17) mg/dL Creatinine 0.55 (0.52-1.04) mg/dL Est GFR (CKD-EPI)AfAm >90 (>60 ml/min/1.73 sqM) Est GFR (CKD-EPI)NonAf >90 (>60 ml/min/1.73 sqM) Glucose 112 H (74-99) mg/dL Plasma Lactic Acid Alber 1.0 (0.7-2.0) mmol/L Calcium 9.2 (8.4-10.2) mg/dL Total Bilirubin 0.4 (0.2-1.3) mg/dL AST 22 (14-36) U/L ALT 14 (4-34) U/L Alkaline Phosphatase 56 (38-126) U/L Total Protein 6.7 (6.3-8.2) g/dL Albumin 3.9 (3.5-5.0) g/dL Urine Color Urine Appearance (Clear) Urine pH (5.0-8.0) Ur Specific [place] (1.001-1.035) Urine Protein (Negative) Urine Glucose (UA) (Negative) Urine Ketones (Negative) Urine Blood (Negative) Urine Nitrite (Negative) Urine Bilirubin (Negative) Urine Urobilinogen (<2.0) mg/dL Ur Leukocyte Esterase (Negative) Urine RBC (0-5) /hpf Urine WBC (0-5) /hpf Ur Squamous Epith Cells (0-4) /hpf Hyaline Casts (0-2) /lpf Urine Mucus (None) /hpf 12/26/19 Range/Units 10:40 WBC (3.8-10.6) k/uL RBC (3.80-5.40) m/uL Hgb (11.4-16.0) gm/dL Hct (34.0-46.0) % MCV (80.0-100.0) fL MCH (25.0-35.0) pg MCHC (31.0-37.0) g/dL RDW (11.5-15.5) % Plt Count (150-450) k/uL Neutrophils % % Lymphocytes % % Monocytes % % Eosinophils % % Basophils % % Neutrophils # (1.3-7.7) k/uL Lymphocytes # (1.0-4.8) k/uL Monocytes # (0-1.0) k/uL Eosinophils # (0-0.7) k/uL Basophils # (0-0.2) k/uL Sodium (137-145) mmol/L Potassium (3.5-5.1) mmol/L Chloride (98-107) mmol/L Carbon Dioxide (22-30) mmol/L Anion Gap mmol/L BUN (7-17) mg/dL Creatinine (0.52-1.04) mg/dL Est GFR (CKD-EPI)AfAm (>60 ml/min/1.73 sqM) Est GFR (CKD-EPI)NonAf (>60 ml/min/1.73 sqM) Glucose (74-99) mg/dL Plasma Lactic Acid Alber (0.7-2.0) mmol/L Calcium (8.4-10.2) mg/dL Total Bilirubin (0.2-1.3) mg/dL AST (14-36) U/L ALT (4-34) U/L Alkaline Phosphatase (38-126) U/L Total Protein (6.3-8.2) g/dL Albumin (3.5-5.0) g/dL Urine Color Yellow Urine Appearance Clear (Clear) Urine pH 7.0 (5.0-8.0) Ur Specific [place] 1.018 (1.001-1.035) Urine Protein Negative (Negative) Urine Glucose (UA) Negative (Negative) Urine Ketones 1+ H (Negative) Urine Blood Negative (Negative) Urine Nitrite Negative (Negative) Urine Bilirubin Negative (Negative) Urine Urobilinogen <2.0 (<2.0) mg/dL Ur Leukocyte Esterase Moderate H (Negative) Urine RBC 3 (0-5) /hpf Urine WBC 2 (0-5) /hpf Ur Squamous Epith Cells 1 (0-4) /hpf Hyaline Casts 1 (0-2) /lpf Urine Mucus Rare H (None) /hpf - Radiology Data Radiology results: report reviewed Ultrasound shows bilateral renal cysts and suspicion for nephrolith lithiasis on the right. No sizable hydronephrosis. Disposition Clinical Impression: Nausea & vomiting, 19 weeks gestation of Disposition: HOME SELF-CARE Condition: Good Instructions (If sedation given, give patient instructions): Nausea and Vomiting in (ED) Additional Instructions: Patient is follow-up with your [employer] tomorrow. Return to the emergency department if any alarming signs or symptoms occur. Prescriptions: Ondansetron Odt [Zofran Odt] 4 mg PO Q8HR PRN #12 tab PRN Reason: Nausea Is patient prescribed a controlled substance at d/c from ED?: No Referrals: Cherry Latif MD [Primary Care Provider] - 1-2 days Time of Disposition: 11:43
[2019-12-26 10:15] LABS: ALT 14 U/L (4-34); AST 22 U/L (14-36); African American GFR (CKD) >90 (>60 ml/min/1.73 sqM); Albumin 3.9 g/dL (3.5-5.0); Alkaline Phosphatase 56 U/L (38-126); Anion Gap 8 mmol/L; Blood Urea Nitrogen 10 mg/dL (7-17); Calcium 9.2 mg/dL (8.4-10.2); Carbon Dioxide 20 mmol/L (22-30); Chloride 108 mmol/L (98-107); Glucose 112 mg/dL (74-99); Non-African American GFR(CKD) >90 (>60 ml/min/1.73 sqM); Potassium 3.8 mmol/L (3.5-5.1); Sodium 136 mmol/L (137-145); Total Bilirubin 0.4 mg/dL (0.2-1.3); Total Protein 6.7 g/dL (6.3-8.2)
[2019-12-26 10:21] LABS: Basophils % (A) 0 %; Eosinophils # (A) 0.1 k/uL (0-0.7); Eosinophils % (A) 1 %; HCT 43.6 % (34.0-46.0); HGB 14.7 gm/dL (11.4-16.0); Lymphocytes # (A) 1.7 k/uL (1.0-4.8); Lymphocytes % (A) 14 %; MCH 31.6 pg (25.0-35.0); MCHC 33.7 g/dL (31.0-37.0); MCV 93.8 fL (80.0-100.0); Mean Platelet Volume 7.5; Monocytes # (A) 0.5 k/uL (0-1.0); Monocytes % (A) 4 %; Neutrophils # (A) 9.9 k/uL (1.3-7.7); Neutrophils % (A) 80 %; Platelet Count 241 k/uL (150-450); RBC 4.65 m/uL (3.80-5.40); RDW 12.8 % (11.5-15.5); WBC 12.4 k/uL (3.8-10.6)
[2019-12-26] MEDS ORDERED: ONDANSETRON 4 MG/2 ML VIAL IVP STA (10:25)
[2019-12-26 10:52] LABS: Appearance,Urine Clear (Clear); Bilirubin,Urine Negative (Negative); Blood,Urine Negative (Negative); Color,Urine Yellow; Glucose,Urine (UA) Negative (Negative); Hyaline Casts,Urine 1 /lpf (0-2); Ketones,Urine 1+ (Negative); Leukocyte Esterase,Urine Moderate (Negative); Mucus,Urine Rare /hpf; Nitrite,Urine Negative (Negative); Protein,Urine Negative (Negative); RBC,Urine 3 /hpf (0-5); Specific Gravity,Urine 1.018 (1.001-1.035); Squamous Epithelial Cell,Urine 1 /hpf (0-4); Urobilinogen,Urine <2.0 mg/dL (<2.0); WBC,Urine 2 /hpf (0-5)
[2019-12-26] MEDS ORDERED: ACETAMINOPHEN TAB 500 MG TAB PO STA (11:06)
[2019-12-26] MEDS ORDERED: ONDANSETRON 4 MG ODT STARTER PACK 2 TAB BTL PO STA (11:44)
[2019-12-26] MEDS ORDERED: MORPHINE SULFATE 2 MG/ML SYRINGE IVP ONE (11:54)
--- NOTE | 2019-12-26 12:35 | US ---
EXAMINATION TYPE: US renals and bladder DATE OF EXAM: 12/26/2019 COMPARISON: CT's & US CLINICAL HISTORY: flank pain. EXAM MEASUREMENTS: Right Kidney: 13.3 x 4.6 x 5.5 cm Left Kidney: 14.3 x 6.5 x 6.8 cm Patient is 19 weeks . Right Kidney: Largest cyst lower/medial measures 3.4 x 3.6 x 2.8 cm. Stone or stones with twinkle art ifact and shadowing lower pole. Left Kidney: multiple cysts, largest measures 1.6 x 1.7 x 1.2 cm. Bladder: not seen IMPRESSION: Bilateral renal cysts with suspicion for right-sided nephrolithiasis. No sizable hydronephrosis.
[2019-12-26 13:15] VITALS: BP 112/67; PULSE 65
== END 2019-12-26 13:14 | disposition home or self-care (01) ==
LOC: EC 09:11
DX: O21.2 Late vomiting of pregnancy (principal); O99.332 Smoking (tobacco) complicating pregnancy, second trimester; F17.200 Nicotine dependence, unspecified, uncomplicated; Z3A.19 19 weeks gestation of pregnancy; Z88.1 Allergy status to other antibiotic agents
CPT/HCPCS: 99284; 96374; 96375 ×3; 96361 ×4; 36415; 80053; 83605; 85025; 81001; 76770; J1200; J2765; J2405; J2270; S0119

== ENCOUNTER 2020-01-17 12:10 | Emergency (ER) | payer OTHER ==
[2020-01-17] MEDS ORDERED: ONDANSETRON 4 MG/2 ML VIAL IVP STA ×2 (12:22→16:41)
[2020-01-17] MEDS ORDERED: SODIUM CHLORIDE 0.9% 1,000 ML IV ONE ×2 (12:22)
[2020-01-17] MEDS ORDERED: FAMOTIDINE 20 MG/2 ML VIAL IV STA (12:23)
--- NOTE | 2020-01-17 12:26 | ED ---
General Adult HPI - General Stated complaint: Nausea, 22 weeks preg Time Seen by Provider: 01/17/20 12:18 Source: patient, RN notes reviewed Limitations: no limitations - History of Present Illness Initial comments: Patient is a pleasant 19-year-old female presenting to the emergency department with nausea vomiting. Onset of symptoms was earlier this morning. Patient does have waxing and waning symptoms throughout her . Patient is approximately 22 weeks gravid and does see Dr. Voss. This is patient's third . Patient does have history of one previous miscarriage. Patient s till feels nauseated and that her mouth is dry. Patient feels like she is aching cramping all over. No vaginal bleeding. Patient did smoke marijuana a day ago. - Related Data Home Medications Medication Instructions Recorded Confirmed No Known Home Medications 01/17/20 01/17/20 Allergies Allergy/AdvReac Type Severity Reaction Status Date / Time ampicillin [From Unasyn] Allergy Mild Rash/Hives Verified 01/17/20 14:26 sulbactam [From Unasyn] Allergy Mild Rash/Hives Verified 01/17/20 14:26 Review of Systems ROS Statement: Those systems with pertinent positive or pertinent negative responses have been documented in the HPI. ROS Other: All systems not noted in ROS Statement are negative. Constitutional: Denies: fever Eyes: Denies: eye pain ENT: Denies: ear pain Respiratory: Denies: cough Cardiovascular: Denies: chest pain Endocrine: Denies: fatigue Gastrointestinal: Reports: nausea, vomiting, other (Patient has had some loose stools.) Genitourinary: Denies: dysuria Musculoskeletal: Reports: as per HPI, back pain (Patient does have some back discomfort that she relates to her chronic polycystic disease.) Skin: Denies: rash Neurological: Denies: weakness Past Medical History Past Medical History: No Reported History Additional Past Medical History / Comment(s): polycystic kidney disease History of Any Multi-Drug Resistant Organisms: None Reported Past Surgical History: Section, Cholecystectomy Past Anesthesia/Blood Transfusion Reactions: No Reported Reaction Past Psychological History: ADD/ADHD Past Alcohol Use History: None Reported Past Drug Use History: Marijuana - Past Family History Sister(s) Family Medical History: No Reported History Additional Family Medical History / Comment(s): polycystic kidney disease, adhd General Exam Limitations: no limitations General appearance: alert, in no apparent distress Head exam: Present: normocephalic Eye exam: Present: normal appearance Neck exam: Present: normal inspection Respiratory exam: Present: normal lung sounds bilaterally Cardiovascular Exam: Present: regular rate, normal rhythm Expanded Peripheral pulses: 2+: Dorsalis Pedis (R), Dorsalis Pedis (L) GI/Abdominal exam: Present: soft, distended (Distended uterus consistent with stated 22 weeks gravid state.), tenderness (Mild diffuse tenderness.) Extremities exam: Present: normal inspection Neurological exam: Present: alert Psychiatric exam: Present: normal affect, normal mood Skin exam: Present: normal color Course Vital Signs 01/17/20 01/17/20 12:25 14:40 Temperature 97.6 F Pulse Rate 56 L 60 Respiratory 16 16 Rate Blood Pressure 113/65 118/84 O2 Sat by Pulse 99 97 Oximetry - Reevaluation(s) Reevaluation #1: 01/17/20 14:41 Patient reevaluated and is somewhat improved. Patient is tolerating liquids. Patient still has some back discomfort however states this is chronic from her polycystic kidney disease. Patient requests Tylenol and Benadryl. EKG Findings - EKG Comments: EKG Findings:: Sinus bradycardia 49. ND 112. QRS 84. QT 464. QTC 419. Normal axis. Normal QRS. No acute ST change. Medical Decision Making - Medical Decision Making Patient again reevaluated and is somewhat improved. Patient still has some discomfort of her back however still states is chronic. Case was discussed in detail with Dr. Voss who would like patient to go up for monitoring. - Lab Data Result diagrams: 01/17/20 12:31 01/17/20 12:31 Lab Results 01/17/20 01/17/20 01/17/20 Range/Units 12:31 12:31 12:31 WBC 12.3 H (3.8-10.6) k/uL RBC 4.08 (3.80-5.40) m/uL Hgb 12.7 (11.4-16.0) gm/dL Hct 38.5 (34.0-46.0) % MCV 94.4 (80.0-100.0) fL MCH 31.1 (25.0-35.0) pg MCHC 32.9 (31.0-37.0) g/dL RDW 12.7 (11.5-15.5) % Plt Count 210 (150-450) k/uL Neutrophils % 82 % Lymphocytes % 13 % Monocytes % 4 % Eosinophils % 0 % Basophils % 0 % Neutrophils # 10.0 H (1.3-7.7) k/uL Lymphocytes # 1.6 (1.0-4.8) k/uL Monocytes # 0.4 (0-1.0) k/uL Eosinophils # 0.1 (0-0.7) k/uL Basophils # 0.0 (0-0.2) k/uL Sodium 136 L (137-145) mmol/L Potassium 4.3 (3.5-5.1) mmol/L Chloride 111 H (98-107) mmol/L Carbon Dioxide 20 L (22-30) mmol/L Anion Gap 5 mmol/L BUN 13 (7-17) mg/dL Creatinine 0.47 L (0.52-1.04) mg/dL Est GFR (CKD-EPI)AfAm >90 (>60 ml/min/1.73 sqM) Est GFR (CKD-EPI)NonAf >90 (>60 ml/min/1.73 sqM) Glucose 103 H (74-99) mg/dL Calcium 8.6 (8.4-10.2) mg/dL Total Bilirubin 0.4 (0.2-1.3) mg/dL AST 24 (14-36) U/L ALT 16 (4-34) U/L Alkaline Phosphatase 48 (38-126) U/L Total Protein 6.2 L (6.3-8.2) g/dL Albumin 3.5 (3.5-5.0) g/dL HCG, Quant 9729.8 mIU/mL Urine Color Yellow Urine Appearance Cloudy H (Clear) Urine pH 8.0 (5.0-8.0) Ur Specific [place] 1.019 (1.001-1.035) Urine Protein Trace H (Negative) Urine Glucose (UA) Negative (Negative) Urine Ketones Negative (Negative) Urine Blood Negative (Negative) Urine Nitrite Negative (Negative) Urine Bilirubin Negative (Negative) Urine Urobilinogen <2.0 (<2.0) mg/dL Ur Leukocyte Esterase Trace H (Negative) Urine RBC 2 (0-5) /hpf Urine WBC 4 (0-5) /hpf Ur Squamous Epith Cells 3 (0-4) /hpf Amorphous Sediment Rare H (None) /hpf Urine Bacteria Rare H (None) /hpf Urine Mucus Occasional H (None) /hpf Urine Opiates Screen (NotDetected) Ur Oxycodone Screen (NotDetected) Urine Methadone Screen (NotDetected) Ur Propoxyphene Screen (NotDetected) Ur Barbiturates Screen (NotDetected) U Tricyclic Antidepress (NotDetected) Ur Phencyclidine Scrn (NotDetected) Ur Amphetamines Screen (NotDetected) U Methamphetamines Scrn (NotDetected) U Benzodiazepines Scrn (NotDetected) Urine Cocaine Screen (NotDetected) U Marijuana (THC) Screen (NotDetected) 01/17/20 Range/Units 12:31 WBC (3.8-10.6) k/uL RBC (3.80-5.40) m/uL Hgb (11.4-16.0) gm/dL Hct (34.0-46.0) % MCV (80.0-100.0) fL MCH (25.0-35.0) pg MCHC (31.0-37.0) g/dL RDW (11.5-15.5) % Plt Count (150-450) k/uL Neutrophils % % Lymphocytes % % Monocytes % % Eosinophils % % Basophils % % Neutrophils # (1.3-7.7) k/uL Lymphocytes # (1.0-4.8) k/uL Monocytes # (0-1.0) k/uL Eosinophils # (0-0.7) k/uL Basophils # (0-0.2) k/uL Sodium (137-145) mmol/L Potassium (3.5-5.1) mmol/L Chloride (98-107) mmol/L Carbon Dioxide (22-30) mmol/L Anion Gap mmol/L BUN (7-17) mg/dL Creatinine (0.52-1.04) mg/dL Est GFR (CKD-EPI)AfAm (>60 ml/min/1.73 sqM) Est GFR (CKD-EPI)NonAf (>60 ml/min/1.73 sqM) Glucose (74-99) mg/dL Calcium (8.4-10.2) mg/dL Total Bilirubin (0.2-1.3) mg/dL AST (14-36) U/L ALT (4-34) U/L Alkaline Phosphatase (38-126) U/L Total Protein (6.3-8.2) g/dL Albumin (3.5-5.0) g/dL HCG, Quant mIU/mL Urine Color Urine Appearance (Clear) Urine pH (5.0-8.0) Ur Specific [place] (1.001-1.035) Urine Protein (Negative) Urine Glucose (UA) (Negative) Urine Ketones (Negative) Urine Blood (Negative) Urine Nitrite (Negative) Urine Bilirubin (Negative) Urine Urobilinogen (<2.0) mg/dL Ur Leukocyte Esterase (Negative) Urine RBC (0-5) /hpf Urine WBC (0-5) /hpf Ur Squamous Epith Cells (0-4) /hpf Amorphous Sediment (None) /hpf Urine Bacteria (None) /hpf Urine Mucus (None) /hpf Urine Opiates Screen Not Detected (NotDetected) Ur Oxycodone Screen Not Detected (NotDetected) Urine Methadone Screen Not Detected (NotDetected) Ur Propoxyphene Screen Not Detected (NotDetected) Ur Barbiturates Screen Not Detected (NotDetected) U Tricyclic Antidepress Not Detected (NotDetected) Ur Phencyclidine Scrn Not Detected (NotDetected) Ur Amphetamines Screen Not Detected (NotDetected) U Methamphetamines Scrn Not Detected (NotDetected) U Benzodiazepines Scrn Not Detected (NotDetected) Urine Cocaine Screen Not Detected (NotDetected) U Marijuana (THC) Screen Detected H (NotDetected) - Radiology Data Radiology results: report reviewed (Pelvic ultrasound shows single IUP at 22 weeks 3 days. Heart rate 147. LUIS 18.8 is upper limits of normal. Kidney ultrasound shows polycystic kidney. Lower pole stone.) Disposition Clinical Impression: Polycystic kidney, Vomiting Disposition: HOME SELF-CARE Condition: Stable Additional Instructions: Discharge to mother-baby. Patient will need monitoring. Follow-up as directed by Dr. Voss. Return for fever or worsening symptoms. Is patient prescribed a controlled substance at d/c from ED?: No Referrals: Cherry Latif MD [Primary Care Provider] - 1-2 days Time of Disposition: 15:53
[2020-01-17 12:56] LABS: Basophils % (A) 0 %; Eosinophils # (A) 0.1 k/uL (0-0.7); Eosinophils % (A) 0 %; HCT 38.5 % (34.0-46.0); HGB 12.7 gm/dL (11.4-16.0); Lymphocytes # (A) 1.6 k/uL (1.0-4.8); Lymphocytes % (A) 13 %; MCH 31.1 pg (25.0-35.0); MCHC 32.9 g/dL (31.0-37.0); MCV 94.4 fL (80.0-100.0); Mean Platelet Volume 7.9; Monocytes # (A) 0.4 k/uL (0-1.0); Monocytes % (A) 4 %; Neutrophils % (A) 82 %; Platelet Count 210 k/uL (150-450); RBC 4.08 m/uL (3.80-5.40); RDW 12.7 % (11.5-15.5); WBC 12.3 k/uL (3.8-10.6)
[2020-01-17 13:04] LABS: ALT 16 U/L (4-34); AST 24 U/L (14-36); African American GFR (CKD) >90 (>60 ml/min/1.73 sqM); Albumin 3.5 g/dL (3.5-5.0); Alkaline Phosphatase 48 U/L (38-126); Anion Gap 5 mmol/L; Blood Urea Nitrogen 13 mg/dL (7-17); Calcium 8.6 mg/dL (8.4-10.2); Carbon Dioxide 20 mmol/L (22-30); Chloride 111 mmol/L (98-107); Glucose 103 mg/dL (74-99); Non-African American GFR(CKD) >90 (>60 ml/min/1.73 sqM); Potassium 4.3 mmol/L (3.5-5.1); Sodium 136 mmol/L (137-145); Total Bilirubin 0.4 mg/dL (0.2-1.3); Total Protein 6.2 g/dL (6.3-8.2)
[2020-01-17 13:19] LABS: HCG,Quantitative Serum 9729.8 mIU/mL
[2020-01-17 13:20] LABS: Amorphous Sediment,Urine Rare /hpf; Appearance,Urine Cloudy (Clear); Bacteria,Urine Rare /hpf; Bilirubin,Urine Negative (Negative); Blood,Urine Negative (Negative); Color,Urine Yellow; Glucose,Urine (UA) Negative (Negative); Ketones,Urine Negative (Negative); Leukocyte Esterase,Urine Trace (Negative); Mucus,Urine Occasional /hpf; Nitrite,Urine Negative (Negative); Protein,Urine Trace (Negative); RBC,Urine 2 /hpf (0-5); Specific Gravity,Urine 1.019 (1.001-1.035); Squamous Epithelial Cell,Urine 3 /hpf (0-4); Urobilinogen,Urine <2.0 mg/dL (<2.0); WBC,Urine 4 /hpf (0-5)
[2020-01-17 13:35] LABS: Amphetamine Screen,Urine Not Detected (NotDetected); Barbiturate Screen,Urine Not Detected (NotDetected); Benzodiazepines Screen,Urine Not Detected (NotDetected); Cocaine Screen,Urine Not Detected (NotDetected); Methadone Screen, Urine Not Detected (NotDetected); Opiate Screen,Urine Not Detected (NotDetected); Oxycodone Screen, Urine Not Detected (NotDetected); Phencyclidine Screen,Urine Not Detected (NotDetected); Tricyclic Antidepressant,Urine Not Detected (NotDetected); Urn Cannabinoid Scrn Detected (NotDetected)
--- NOTE | 2020-01-17 13:52 | US ---
EXAMINATION TYPE: US OB >= 14 wk fetus DATE OF EXAM: 01/17/2020 COMPARISON: None CLINICAL HISTORY: pain Pain. N/V. TECHNIQUE: Transabdominal (TA) GESTATIONAL AGE / DATING Physician Established: (22 weeks/2 days) EDC: 05/20/2020 Dates by Current Scan: (22 weeks/3 days) EDC: 05/19/2020 Beta HCG (if available): Not available at this time SURVEY IUP: Single PLACENTA: Anterior PREVIA: No Previa LUIS: 18.8 cm Upper limits of normal CERVICAL LENGTH (transabdominal: norm > 3.0cm): 3.4 cm BIOMETRY PRESENTATION: Vertex BPD: 5.3 cm 22 weeks / 0 days HC: 20.0 cm 22 weeks / 2 days AC: 18.3 cm 23 weeks / 1 days FL: 3.7 cm 22 weeks / 0 days ESTIMATED WEIGHT IN GRAMS: 510 grams ESTIMATED WEIGHT IN LBS/OZ: 1 lbs. 2 oz. WEIGHT PERCENTAGE BASED ON ESTABLISHED DATES: 55% HC/AC: 1.1 Normal FL/AC: 20% Normal HEART RATE: 147 bpm RHYTHM: Normal Single live IUP measuring 22 weeks 3 days small parts are not evaluated during this examination. IMPRESSION: 1. Single intrauterine gestation estimated at 22 weeks 3 days gestation based on current ultrasound m easurements. Cardiac activity measures 1 47 bpm 2. LUIS of 18.8 cm is at the upper limits. Consider monitoring for polyhydramnios.
[2020-01-17] MEDS ORDERED: ACETAMINOPHEN ORAL SUSP 160 MG/5 ML CUP PO ONE (14:31)
[2020-01-17] MEDS ORDERED: diphenhydrAMINE ELIXIR 25 MG/10 ML CUP PO STA (14:31)
--- NOTE | 2020-01-17 15:32 | US ---
EXAMINATION TYPE: US kidneys/renal and bladder DATE OF EXAM: 01/17/2020 COMPARISON: US 12/26/19 CLINICAL HISTORY: r back pain. EXAM MEASUREMENTS: Right Kidney: 13.2 x 6.0 x 5.1 cm Left Kidney: 14.6 x 7.6 x 6.4 cm Post Void Residual Volume: Not measured mL Right Kidney: Multiple cysts. Largest mid pole = 3.8 x 3.4 x 3.3 cm. This may be peripelvic cyst, Low er pole stone = 1.7 x 1.4 x 1.0 cm with shadowing Left Kidney: Multiple cysts noted again Bladder: Difficult to assess d/t 22 week Bilateral Jets seen: No Unchanged from ultrasound exam of 12/26/19 IMPRESSION: 1. Stable appearance of bilateral renal cysts and inferior right renal stone.
[2020-01-17 16:03] VITALS: BP 120/84; PULSE 61; RESP 14; TEMP 97.8
[2020-01-17] MEDS ORDERED: HYDROmorphone 0.5 MG/0.5 ML SYRINGE IVP PRN (16:39)
[2020-01-17] MEDS ORDERED: LACTATED RINGERS 1,000 ML IV SCH (16:45)
--- NOTE | 2020-01-17 17:09 | P.HPOB ---
History of Present Illness H&P Date: 01/17/20 Chief Complaint: Intrauterine at 25 weeks with renal lithiasis and intractable eva Pat is a 19-year-old female 22 weeks gestation with a history of polycystic kidneys for which she was seen at maternal medicine. The recommendation was to have her see nephrology inadequate was being made however today she began having severe back and flank pain that for sure to come to the emergency room. Ultrasound shows a persistent 1.7 x 1.4 cm renal lithiasis on the right side and several cysts in the right kidney. We have consultation both urology and nephrology for assistance in care of this pleasant woman. I have initiated IV hydration and IV pain control and IV antiemetics. Her urine specimens is not grossly appear to have an infection. This is the at least third time she is been into the emergency room for similar pain. She is known kidney stones for a length of time, she says a couple years ago she was told she had kidney stones but she is not had this much symptoms until now. She was first diagnosed with polycystic kidneys approximately 9 or 10 years ago. heart tones are in the 140s to 160s. Ultrasound of the fetus revealed the possible early polyhydramnios however, very difficult to say at this stage whether not that is accurate. She is [place] then established with maternal medicine as previously noted. On physical exam vital signs are stable afebrile. Heart regular, lungs clear, extremities without pain. She does have significant flank tenderness and low back pain. Will plan continue very conservative care with IV fluids and pain control and await consultation from urology and nephrology for further recommendations. Past Medical History Past Medical History: No Reported History Additional Past Medical History / Comment(s): polycystic kidney disease History of Any Multi-Drug Resistant Organisms: None Reported Past Surgical History: Section, Cholecystectomy Past Anesthesia/Blood Transfusion Reactions: No Reported Reaction Past Psychological History: ADD/ADHD Past Alcohol Use History: None Reported Past Drug Use History: Marijuana - Past Family History Sister(s) Family Medical History: No Reported History Additional Family Medical History / Comment(s): polycystic kidney disease, adhd Medications and Allergies Home Medications Medication Instructions Recorded Confirmed Type Ondansetron [Zofran] 4 mg PO Q8HR PRN 01/17/20 01/17/20 History Pnv No.95/Ferrous Fum/Folic AC 1 each PO DAILY 01/17/20 01/17/20 History [ Multivitamin Tablet] Allergies Allergy/AdvReac Type Severity Reaction Status Date / Time ampicillin [From Unasyn] Allergy Mild Rash/Hives Verified 01/17/20 16:38 sulbactam [From Unasyn] Allergy Mild Rash/Hives Verified 01/17/20 16:38 Exam Osteopathic Statement: *. No significant issues noted on an osteopathic structural exam other than those noted in the History and Physical/Consult. Vital Signs Temp Pulse Resp BP Pulse Ox 01/17/20 16:00 97.8 F 61 14 120/84 98 01/17/20 14:40 60 16 118/84 97 01/17/20 12:25 97.6 F 56 L 16 113/65 99 Intake and Output 01/17/20 01/17/20 01/17/20 06:59 14:59 22:59 Other: Weight 63.503 kg - OBG Physical Exam Breast: both: normal (no masses) Abdomen: bowel sounds normal, no diffuse tenderness, no bruit present, no guarding noted, no hepatomegaly, no splenomegaly, no mass Vulva: both: normal Vagina: normal moisture, no discharge Cervix: no lesion, no discharge Uterus: normal size, enlarged (22 weeks ), normal contour Adnexa: both: normal Anus/Rectum: normal perianal skin, no rectal mass, no hemorrhoids, heme negative Results Result Diagrams: 01/17/20 12:31 01/17/20 12:31 Abnormal Lab Results - Last 24 Hours (Table) 01/17/20 01/17/20 01/17/20 Range/Units 12:31 12:31 12:31 WBC 12.3 H (3.8-10.6) k/uL Neutrophils # 10.0 H (1.3-7.7) k/uL Sodium 136 L (137-145) mmol/L Chloride 111 H (98-107) mmol/L Carbon Dioxide 20 L (22-30) mmol/L Creatinine 0.47 L (0.52-1.04) mg/dL Glucose 103 H (74-99) mg/dL Total Protein 6.2 L (6.3-8.2) g/dL Urine Appearance Cloudy H (Clear) Urine Protein Trace H (Negative) Ur Leukocyte Esterase Trace H (Negative) Amorphous Sediment Rare H (None) /hpf Urine Bacteria Rare H (None) /hpf Urine Mucus Occasional H (None) /hpf U Marijuana (THC) Screen (NotDetected) 01/17/20 Range/Units 12:31 WBC (3.8-10.6) k/uL Neutrophils # (1.3-7.7) k/uL Sodium (137-145) mmol/L Chloride (98-107) mmol/L Carbon Dioxide (22-30) mmol/L Creatinine (0.52-1.04) mg/dL Glucose (74-99) mg/dL Total Protein (6.3-8.2) g/dL Urine Appearance (Clear) Urine Protein (Negative) Ur Leukocyte Esterase (Negative) Amorphous Sediment (None) /hpf Urine Bacteria (None) /hpf Urine Mucus (None) /hpf U Marijuana (THC) Screen Detected H (NotDetected)
== END 2020-01-17 16:00 | disposition home or self-care (01) ==
LOC: EC 12:10 → SUPCPDRO 12:10 → EC 16:00
DX: O26.832 Pregnancy related renal disease, second trimester (principal); N28.1 Cyst of kidney, acquired; O21.9 Vomiting of pregnancy, unspecified; Z3A.22 22 weeks gestation of pregnancy; Z88.0 Allergy status to penicillin; Z88.1 Allergy status to other antibiotic agents
CPT/HCPCS: 36415; 80053; 85025; 81001; 84702; 80306; 76805; 76770; 99284; 96374; 96375; 96361 ×4; J2405

== ENCOUNTER 2020-01-17 16:28 | Observation (INO) | payer OTHER ==
[2020-01-17] MEDS ORDERED: ONDANSETRON 4 MG/2 ML VIAL IVP PRN (17:27)
[2020-01-17] MEDS: LACTATED RINGERS 1,000 ML IV SCH (17:55)
[2020-01-17] MEDS: HYDROmorphone 0.5 MG/0.5 ML SYRINGE IVP PRN ×2 (18:05→21:31)
[2020-01-17 20:44] VITALS: RESP 18
[2020-01-18] MEDS: LACTATED RINGERS 1,000 ML IV SCH (02:39)
[2020-01-18] MEDS: HYDROmorphone 0.5 MG/0.5 ML SYRINGE IVP PRN (05:02)
[2020-01-18 05:07] VITALS: PULSE 81; TEMP 98.1
[2020-01-18 10:49] VITALS: BP 86/39
--- NOTE | 2020-01-18 11:05 | P.NPCON ---
History of Present Illness - Reason for Consult chronic renal failure - History of Present Illness Reason for consultation: Polycystic kidney disease History of present illness: Patient is a 19-year-old female seen in renal consultation for polycystic kidney disease. Patient has chronic kidney disease stage I due to polycystic kidney disease. States she first heard about polycystic kidney disease when she was 10 years old. Patient states she has strong family history of polycystic kidney disease from her maternal side. Patient is currently at 22 weeks gestation. She presented to the hospital due to back pain as well as nausea and vomiting. She feels better today. She did eat dinner last night. Renal ultrasound revealed 14.6 and 13.2 cm kidneys with bilateral cysts. She was also noted to have a nonobstructing 1.7 cm kidney stone on the left side. She denies any hematuria or dysuria. No edema. Denies use of nonsteroidals. No history of blood pressure or diabetes. Blood pressure is well controlled. Vital signs are stable. General: The patient appeared well nourished and normally developed. HEENT: Head exam is unremarkable. Neck is without jugular venous distension. LUNGS: Lungs are clear to auscultation and percussion. Breath sounds decreased. HEART: Rate and Rhythm are regular. First and second heart sounds normal. No murmurs, rubs or gallops. ABDOMEN: Soft, nontender. EXTREMITITES: No clubbing, cyanosis, or edema. Past Medical History Past Medical History: No Reported History Additional Past Medical History / Comment(s): polycystic kidney disease History of Any Multi-Drug Resistant Organisms: None Reported Past Surgical History: Section, Cholecystectomy Past Anesthesia/Blood Transfusion Reactions: No Reported Reaction Past Psychological History: ADD/ADHD, Anxiety Smoking Status: Current every day smoker Past Alcohol Use History: None Reported Past Drug Use History: Marijuana - Past Family History Sister(s) Family Medical History: No Reported History Additional Family Medical History / Comment(s): polycystic kidney disease, adhd Medications and Allergies Home Medications Medication Instructions Recorded Confirmed Type Ondansetron [Zofran] 4 mg PO Q8HR PRN 01/17/20 01/17/20 History Pnv No.95/Ferrous Fum/Folic AC 1 each PO DAILY 01/17/20 01/17/20 History [ Multivitamin Tablet] Allergies Allergy/AdvReac Type Severity Reaction Status Date / Time ampicillin [From Unasyn] Allergy Mild Rash/Hives Verified 01/17/20 16:38 sulbactam [From Unasyn] Allergy Mild Rash/Hives Verified 01/17/20 16:38 Physical Exam Vitals: Vital Signs Temp Pulse Resp BP Pulse Ox 01/18/20 09:15 98.1 F 81 18 86/39 96 01/18/20 04:55 98.1 F 81 18 104/52 98 01/17/20 23:49 98.6 F 56 L 18 123/60 98 01/17/20 20:00 98.5 F 76 18 100/52 100 01/17/20 17:00 47 L 20 132/74 99 Intake and Output 01/17/20 01/18/20 01/18/20 22:59 06:59 14:59 Output Total 75 1400 Balance -75 -1400 Output: Urine 75 1400 Other: Voiding Method Toilet Toilet # Voids 1 1 # Emeses 1 Weight 64.864 kg Assessment and Plan Plan: Assessment: 1. Chronic kidney disease stage I secondary to polycystic kidney disease. 2. Left-sided nephrolithiasis. 3. 22 weeks gestation. Plan: Maintain IV hydration. I advised the patient to maintain adequate oral hydration upon discharge with goal urine output of greater than 2 L a day. Avoid excessive caffeine. Follow up outpatient for CKD care. Will consider [facility] down the road. Thank you for the consultation. I will continue to follow the patient with you during her hospital stay.
--- NOTE | 2020-01-18 11:55 | P.DS ---
Providers Date of admission: 01/17/20 16:48 Expected date of discharge: 01/18/20 Attending physician: Marky Engle Consults: 01/17/20 17:28 Consult Physician Routine Consulting Provider: Bishnu Goldberg Consult Reason/Comments: kidney stones and polycystic kidneys Do you want consulting provider notified?: Yes Placement Type Exists?: Yes 01/17/20 17:30 Consult Physician Routine Consulting Provider: Yosvany Blake Consult Reason/Comments: kidney stones and polycycstic kidneys Do you want consulting provider notified?: Yes Placement Type Exists?: Yes Primary care physician: Stated None Hospital Course: Megajoules much better dissection in. She is and avoiding and voiding. She is tolerating her diet. She is seen both nephrology and urology and recommendations are noted. Nephrology would like for her to make sure that she maintains a very high water intake volumes that she is producing 2 L of urine per day. This may very well help both her chronic kidney disease as well as help pass the stone. Urology consult was still pending but I believe that the consult relates that he would like to see her in his office in approximately 6 weeks. There is otherwise very limited that we can do for her and with the pain now essentially gone we'll plan discharged home with instructions to follow up with me in approximately 1 week. All the questions are answered for her and she is stable for discharge this time. Patient Condition at Discharge: Good Plan - Discharge Summary New Discharge Prescriptions: No Action Ondansetron [Zofran] 4 mg PO Q8HR PRN PRN Reason: Nausea Pnv No.95/Ferrous Fum/Folic AC [ Multivitamin Tablet] 1 each PO DAILY Discharge Medication List Ondansetron [Zofran] 4 mg PO Q8HR PRN 01/17/20 [History] Pnv No.95/Ferrous Fum/Folic AC [ Multivitamin Tablet] 1 each PO DAILY 01/17/20 [History] Follow up Appointment(s)/Referral(s): Marky Engle DO [Doctor of Osteopathic Medicine] - 1 Week Activity/Diet/Wound Care/Special Instructions: Return to labor and delivery with worsening of symptoms Discharge Disposition: HOME SELF-CARE
--- NOTE | 2020-01-18 16:56 | P.GSCN ---
History of Present Illness Consult date: 01/18/20 Reason for Consult: right sided renal calculi History of present illness: Ms Ames is 19 yo female with pmh significant for polycystic kidney disease. She presented to the ED with right sided flank pain, she underwent a RBUS which showed a 1.7 cm right sided renal calculi in the lower pole, but no hydronephrosis. She has know hx or right sided kidney stone.. Patient is currently at 22 weeks gestation. She denies any dysuria/hematuria or left flank pain. no previous intervention for her kidney stones. Since admission her pain has improved, and now she is complaining of minimal pain Review of Systems - Constitutional Denies fever, Denies weight loss - Respiratory Denies cough, Denies 7 - Gastrointestinal Reports abdominal pain, Reports nausea - Genitourinary Genitourinary: Reports flank pain, Reports kidney stones Past Medical History Past Medical History: No Reported History Additional Past Medical History / Comment(s): polycystic kidney disease History of Any Multi-Drug Resistant Organisms: None Reported Past Surgical History: Section, Cholecystectomy Past Anesthesia/Blood Transfusion Reactions: No Reported Reaction Past Psychological History: ADD/ADHD, Anxiety Smoking Status: Current every day smoker Past Alcohol Use History: None Reported Past Drug Use History: Marijuana - Past Family History Sister(s) Family Medical History: No Reported History Additional Family Medical History / Comment(s): polycystic kidney disease, adhd Medications and Allergies Home Medications Medication Instructions Recorded Confirmed Type Ondansetron [Zofran] 4 mg PO Q8HR PRN 01/17/20 01/17/20 History Pnv No.95/Ferrous Fum/Folic AC 1 each PO DAILY 01/17/20 01/17/20 History [ Multivitamin Tablet] HYDROcodone/APAP 5-325MG [[place] 1 tab PO Q4HR PRN #30 tab 01/18/20 Rx 5-325] Ondansetron Odt [Zofran Odt] 4 mg PO Q8HR PRN #30 tab 01/18/20 Rx Allergies Allergy/AdvReac Type Severity Reaction Status Date / Time ampicillin [From Unasyn] Allergy Mild Rash/Hives Verified 01/17/20 16:38 sulbactam [From Unasyn] Allergy Mild Rash/Hives Verified 01/17/20 16:38 Surgical - Exam Vital Signs Pulse Resp BP Pulse Ox 47 L 20 132/74 99 07/27/20 17:00 01/17/20 17:00 01/17/20 17:00 01/17/20 17:00 - General no distress, no no pain - Eyes PERRL, normal ocular movement - Respiratory normal expansion, normal respiratory effort - Psychiatric oriented to time, oriented to person, oriented to place, speech is normal Assessment and Plan Assessment: Ms Ames is 19 yo female with pmh significant for polycystic kidney disease. . Patient is currently at 22 weeks gestation. she has a 1.7 cm right lower pole stone. No hydro on U/S. Her pain improved since admission. Plan: -No acute surgical intervention, stone is non-obstructing, no hydronephrosis appreciated on U/S. She will need a right sided PCNL after her delivery Given her symptoms and size of the stone. -OK for discharge from urology standpoint can f/u as an outpatient in 4-6 weeks
== END 2020-01-18 12:15 | disposition home or self-care (01) ==
LOC: FBPOP 16:28 → 4FBP 16:48
PROVIDERS: ADMIT Obstetrics & Gynecology; ATTEND Obstetrics & Gynecology
DX: O26.892 Other specified pregnancy related conditions, second trimester (principal); N20.0 Calculus of kidney; O26.832 Pregnancy related renal disease, second trimester; Q61.3 Polycystic kidney, unspecified; N18.1 Chronic kidney disease, stage 1; O99.342 Other mental disorders complicating pregnancy, second trimester; F90.9 Attention-deficit hyperactivity disorder, unspecified type; F41.9 Anxiety disorder, unspecified; O99.332 Smoking (tobacco) complicating pregnancy, second trimester; F17.200 Nicotine dependence, unspecified, uncomplicated; Z3A.22 22 weeks gestation of pregnancy; Z98.890 Other specified postprocedural states; Z90.49 Acquired absence of other specified parts of digestive tract; Z88.0 Allergy status to penicillin; Z82.71 Family history of polycystic kidney; Z81.8 Family history of other mental and behavioral disorders
CPT/HCPCS: 96376 ×2; 96361 ×2; 96374 ×2; 96375 ×2; 99284; 36415; 80053; 85025; 81001; 84702; 80306; 76805; 76770; G0463; G0378 ×2; J2405 ×2; J1170 ×2; 99214

== ENCOUNTER 2020-01-24 09:36 | Emergency (ER) | payer OTHER ==
[2020-01-24 09:40] VITALS: TEMP 98.4
[2020-01-24] MEDS ORDERED: SODIUM CHLORIDE 0.9% 1,000 ML IV STA (10:02)
[2020-01-24] MEDS ORDERED: diphenhydrAMINE 50 MG/ML 1 ML VIAL IVP STA (10:03)
[2020-01-24] MEDS ORDERED: METOCLOPRAMIDE 5 MG/ML 2 ML VIAL IVP STA (10:03)
[2020-01-24 10:12] LABS: Basophils % (A) 0 %; Eosinophils # (A) 0.1 k/uL (0-0.7); Eosinophils % (A) 1 %; HCT 39.1 % (34.0-46.0); HGB 12.7 gm/dL (11.4-16.0); Lymphocytes # (A) 1.5 k/uL (1.0-4.8); Lymphocytes % (A) 13 %; MCH 30.8 pg (25.0-35.0); MCHC 32.5 g/dL (31.0-37.0); MCV 94.9 fL (80.0-100.0); Mean Platelet Volume 7.8; Monocytes # (A) 0.5 k/uL (0-1.0); Monocytes % (A) 4 %; Neutrophils # (A) 8.8 k/uL (1.3-7.7); Neutrophils % (A) 79 %; Platelet Count 236 k/uL (150-450); RBC 4.12 m/uL (3.80-5.40); RDW 12.9 % (11.5-15.5); WBC 11.2 k/uL (3.8-10.6)
--- NOTE | 2020-01-24 10:19 | ED ---
General Adult HPI - General Chief complaint: Back Pain/Injury Stated complaint: Lower back pain Time Seen by Provider: 01/24/20 09:42 Source: EMS Mode of arrival: EMS Limitations: no limitations - History of Present Illness Initial comments: Patient is a 19-year-old female, , 22 weeks presenting to the emergency department with chief complaint of back pain. Patient states she has history of renal stones and they have been persistent throughout her . Patient states she's been emergency department multiple times during this pr egnancy for renal stones. Patient states she was admitted about one week ago and was seen by the OB, Dr. Voss, who started her on [place]. Patient states she's been fairly symptom free until this morning around 4 AM when she developed sudden onset of sharp right low back pain. Patient states this feels like her typical kidney stones. Patient states she developed nausea and one episode of nonbloody loose, nonbloody vomiting. Patient states she also had a panic attack and called the embolus. Patient states during the embolus ride, the pain had improved. She denies any hematuria, hematochezia or melena. Denies UTI like symptoms. - Related Data Home Medications Medication Instructions Recorded Confirmed Pnv No.95/Ferrous Fum/Folic AC 1 tab PO DAILY 01/17/20 01/24/20 [ Multivitamin Tablet] Acetaminophen Tab [Tylenol] 325 mg PO Q4H PRN 01/24/20 01/24/20 Ondansetron Odt [Zofran Odt] 4 mg PO DAILY PRN 01/24/20 01/24/20 Previous Rx's Medication Instructions Recorded HYDROcodone/APAP 5-325MG [[place] 1 tab PO Q4HR PRN #30 tab 01/18/20 5-325] Allergies Allergy/AdvReac Type Severity Reaction Status Date / Time ampicillin [From Unasyn] Allergy Mild Rash/Hives Verified 01/24/20 10:02 sulbactam [From Unasyn] Allergy Mild Rash/Hives Verified 01/24/20 10:02 Review of Systems ROS Statement: Those systems with pertinent positive or pertinent negative responses have been documented in the HPI. ROS Other: All systems not noted in ROS Statement are negative. Past Medical History Past Medical History: No Reported History Additional Past Medical History / Comment(s): polycystic kidney disease History of Any Multi-Drug Resistant Organisms: None Reported Past Surgical History: Section, Cholecystectomy Past Anesthesia/Blood Transfusion Reactions: No Reported Reaction Past Psychological History: ADD/ADHD, Anxiety Smoking Status: Current every day smoker Past Alcohol Use History: None Reported Past Drug Use History: Marijuana - Past Family History Sister(s) Family Medical History: No Reported History Additional Family Medical History / Comment(s): polycystic kidney disease, adhd General Exam Limitations: no limitations General appearance: alert, in no apparent distress Head exam: Present: atraumatic, normocephalic, normal inspection Eye exam: Present: normal appearance, PERRL, EOMI Pupils: Present: normal accommodation ENT exam: Present: normal exam, normal oropharynx, mucous membranes moist, TM's normal bilaterally, normal external ear exam Neck exam: Present: normal inspection, full ROM. Absent: tenderness Respiratory exam: Present: normal lung sounds bilaterally. Absent: respiratory distress, wheezes Cardiovascular Exam: Present: regular rate, normal rhythm, normal heart sounds GI/Abdominal exam: Present: soft, other (Fundal height slightly above the umbilicus.). Absent: distended Extremities exam: Present: normal inspection, full ROM, normal capillary refill. Absent: tenderness Back exam: Present: normal inspection, full ROM, CVA tenderness (R). Absent: tenderness Neurological exam: Present: alert, oriented X3, normal gait Psychiatric exam: Present: normal affect, normal mood Skin exam: Present: warm, dry, intact, normal color Course Vital Signs 01/24/20 01/24/20 09:37 11:51 Temperature 98.4 F Pulse Rate 65 88 Respiratory 16 20 Rate Blood Pressure 129/80 132/89 O2 Sat by Pulse 98 99 Oximetry Medical Decision Making - Medical Decision Making Patient is a 19-year-old female, , 23 week with history of polycystic kidney disease and renal stones presenting to the emergency room for chief complaint of flank pain. Exam patient has mild right CVA tenderness. Most of the pain is located in the right flank region. Patient states she did have an anxiety attack which was the primary cause as to why she called EMS. CBC reveals mild leukocytosis. CMP is an Christ well. UA reveals no signs of a urinary tract infection. No microscopic hematuria. Kidney ultrasound reveals bilateral enlarged kidneys with several thin-walled cysts. It is difficult to exclude underlying right-sided hydronephrosis but there is no significant change to most recent ultrasound. Patient was IV fluids, Reglan and Benadryl. On reevaluation, patient reports improvement of symptoms and states she feels much better than prior to her visit. Patient states she feels comfortable going home and is to follow up with her OB over the next few days. Return parameters were thoroughly discussed patient is an 17 agreeable. Case discussed with physician. - Lab Data Result diagrams: 01/24/20 10:07 01/24/20 10:07 Lab Results 01/24/20 01/24/20 01/24/20 Range/Units 10:07 10:07 10:07 WBC 11.2 H (3.8-10.6) k/uL RBC 4.12 (3.80-5.40) m/uL Hgb 12.7 (11.4-16.0) gm/dL Hct 39.1 (34.0-46.0) % MCV 94.9 (80.0-100.0) fL MCH 30.8 (25.0-35.0) pg MCHC 32.5 (31.0-37.0) g/dL RDW 12.9 (11.5-15.5) % Plt Count 236 (150-450) k/uL Neutrophils % 79 % Lymphocytes % 13 % Monocytes % 4 % Eosinophils % 1 % Basophils % 0 % Neutrophils # 8.8 H (1.3-7.7) k/uL Lymphocytes # 1.5 (1.0-4.8) k/uL Monocytes # 0.5 (0-1.0) k/uL Eosinophils # 0.1 (0-0.7) k/uL Basophils # 0.0 (0-0.2) k/uL Sodium 137 (137-145) mmol/L Potassium 4.1 (3.5-5.1) mmol/L Chloride 108 H (98-107) mmol/L Carbon Dioxide 24 (22-30) mmol/L Anion Gap 5 mmol/L BUN 8 (7-17) mg/dL Creatinine 0.52 (0.52-1.04) mg/dL Est GFR (CKD-EPI)AfAm >90 (>60 ml/min/1.73 sqM) Est GFR (CKD-EPI)NonAf >90 (>60 ml/min/1.73 sqM) Glucose 90 (74-99) mg/dL Calcium 8.7 (8.4-10.2) mg/dL Total Bilirubin 0.4 (0.2-1.3) mg/dL AST 22 (14-36) U/L ALT 19 (4-34) U/L Alkaline Phosphatase 52 (38-126) U/L Total Protein 6.1 L (6.3-8.2) g/dL Albumin 3.5 (3.5-5.0) g/dL Urine Color Yellow Urine Appearance Cloudy H (Clear) Urine pH 7.5 (5.0-8.0) Ur Specific [place] 1.018 (1.001-1.035) Urine Protein Trace H (Negative) Urine Glucose (UA) Negative (Negative) Urine Ketones Negative (Negative) Urine Blood Negative (Negative) Urine Nitrite Negative (Negative) Urine Bilirubin Negative (Negative) Urine Urobilinogen 2.0 (<2.0) mg/dL Ur Leukocyte Esterase Large H (Negative) Urine RBC 1 (0-5) /hpf Urine WBC 4 (0-5) /hpf Ur Squamous Epith Cells 10 H (0-4) /hpf Amorphous Sediment Rare H (None) /hpf Urine Bacteria Rare H (None) /hpf Urine Mucus Rare H (None) /hpf Disposition Clinical Impression: Lower back pain, Flank pain Disposition: HOME SELF-CARE Condition: Stable Instructions (If sedation given, give patient instructions): Acute Low Back Pain (ED) Additional Instructions: Follow-up with your OB. Return to emergency department if symptoms worsen. Is patient prescribed a controlled substance at d/c from ED?: No Referrals: Cherry Latif MD [Primary Care Provider] - 1-2 days Time of Disposition: 11:46
[2020-01-24 10:24] LABS: ALT 19 U/L (4-34); AST 22 U/L (14-36); African American GFR (CKD) >90 (>60 ml/min/1.73 sqM); Albumin 3.5 g/dL (3.5-5.0); Alkaline Phosphatase 52 U/L (38-126); Anion Gap 5 mmol/L; Blood Urea Nitrogen 8 mg/dL (7-17); Calcium 8.7 mg/dL (8.4-10.2); Carbon Dioxide 24 mmol/L (22-30); Chloride 108 mmol/L (98-107); Glucose 90 mg/dL (74-99); Non-African American GFR(CKD) >90 (>60 ml/min/1.73 sqM); Potassium 4.1 mmol/L (3.5-5.1); Sodium 137 mmol/L (137-145); Total Bilirubin 0.4 mg/dL (0.2-1.3); Total Protein 6.1 g/dL (6.3-8.2)
[2020-01-24 10:31] LABS: Amorphous Sediment,Urine Rare /hpf; Appearance,Urine Cloudy (Clear); Bacteria,Urine Rare /hpf; Bilirubin,Urine Negative (Negative); Blood,Urine Negative (Negative); Color,Urine Yellow; Glucose,Urine (UA) Negative (Negative); Ketones,Urine Negative (Negative); Leukocyte Esterase,Urine Large (Negative); Mucus,Urine Rare /hpf; Nitrite,Urine Negative (Negative); PH, Urine 7.5 (5.0-8.0); Protein,Urine Trace (Negative); RBC,Urine 1 /hpf (0-5); Specific Gravity,Urine 1.018 (1.001-1.035); Squamous Epithelial Cell,Urine 10 /hpf (0-4); WBC,Urine 4 /hpf (0-5)
--- NOTE | 2020-01-24 11:25 | US ---
EXAMINATION TYPE: US renals and bladder DATE OF EXAM: 01/24/2020 COMPARISON: Renal ultrasound December 26, 2019 CLINICAL HISTORY: History of renal stones, 23 week . Patient has known renal cysts and stones , came to [facility] last week with right flank pain, pain still persists, pt is 23 weeks . EXAM MEASUREMENTS: Right Kidney: 13.9 x 5.9 x 5.7 cm Left Kidney: 14.1 x 6.4 x 7.1 cm Right Kidney: enlarged kidney with appearance of hydronephrosis, large mid pole cyst = 4.2cm, along w ith 1.3cm shadowing stone mid pole Left Kidney: enlarged kidney with multiple cysts, largest seen = 3.0cm mid pole Bladder: not distended IMPRESSION: Correlate for possible underlying polycystic kidney disease as kidneys are larger than no rmal with several thin-walled cysts redemonstrated bilaterally. Difficult to exclude degree of underl gloria right-sided hydronephrosis but no significant change or progression from most recent prior ultra sound. Suboptimal study noted.
[2020-01-24 11:52] VITALS: BP 132/89; PULSE 88; RESP 20
== END 2020-01-24 13:01 | disposition home or self-care (01) ==
LOC: EC 09:36
DX: O26.832 Pregnancy related renal disease, second trimester (principal); O99.332 Smoking (tobacco) complicating pregnancy, second trimester; F17.200 Nicotine dependence, unspecified, uncomplicated; Z3A.23 23 weeks gestation of pregnancy; Z88.1 Allergy status to other antibiotic agents; Z88.8 Allergy status to other drugs, medicaments and biological substances
CPT/HCPCS: 36415; 80053; 85025; 81001; 76770; 99284; 96374; 96375; 96361; J1200; J2765

== ENCOUNTER 2020-02-21 12:59 | Observation (INO) | payer OTHER ==
[2020-02-21] MEDS ORDERED: METOCLOPRAMIDE 5 MG/ML 2 ML VIAL IVP STA (13:34)
[2020-02-21] MEDS: LACTATED RINGERS 1,000 ML IV SCH ×3 (13:52→21:56)
[2020-02-21 14:14] LABS: Basophils # (A) 0.1 k/uL (0-0.2); Basophils % (A) 0 %; Eosinophils # (A) 0.1 k/uL (0-0.7); Eosinophils % (A) 0 %; HCT 42.1 % (34.0-46.0); HGB 13.8 gm/dL (11.4-16.0); Lymphocytes # (A) 1.8 k/uL (1.0-4.8); Lymphocytes % (A) 11 %; MCH 30.7 pg (25.0-35.0); MCHC 32.7 g/dL (31.0-37.0); MCV 93.8 fL (80.0-100.0); Mean Platelet Volume 8.3; Monocytes # (A) 0.6 k/uL (0-1.0); Monocytes % (A) 4 %; Neutrophils # (A) 13.2 k/uL (1.3-7.7); Neutrophils % (A) 83 %; Platelet Count 217 k/uL (150-450); RBC 4.49 m/uL (3.80-5.40); RDW 12.5 % (11.5-15.5); WBC 15.9 k/uL (3.8-10.6)
[2020-02-21 14:29] LABS: African American GFR (CKD) >90 (>60 ml/min/1.73 sqM); Anion Gap 8 mmol/L; Blood Urea Nitrogen 11 mg/dL (7-17); Carbon Dioxide 17 mmol/L (22-30); Chloride 111 mmol/L (98-107); Non-African American GFR(CKD) >90 (>60 ml/min/1.73 sqM); Potassium 3.9 mmol/L (3.5-5.1); Sodium 136 mmol/L (137-145)
--- NOTE | 2020-02-21 16:04 | US ---
EXAMINATION TYPE: US kidneys/renal and bladder DATE OF EXAM: 02/21/2020 COMPARISON: US 2019 CLINICAL HISTORY: 27 weeks preg. [address] kidneys. dr bourgeois. abdomen pain with known right stone an d bilateral cysts, patient is 27 weeks . EXAM MEASUREMENTS: Right Kidney: 12.3 x 5.5 x 6.3 cm Left Kidney: 12.7 x 6.4 x 5.5 cm Difficult and limited study due to patient motion, patient in a lot of pain, unable to finish exam, transverse images of left kidney not done. Right Kidney: enlarged, multiple cysts with largest measuring 3.4 x 4.2 x 3.6cm, 0.8cm shadowing ston e mid/inf pole Left Kidney: limited visualization, enlarged, multiple cysts with largest measuring 2.8cm sup pole Bladder: not fully distended Bilateral Jets seen: no Uterus was not evaluated during this exam. IMPRESSION: 1. Limited examination. Multiple cysts appear to be present bilateral kidneys. No hydronephrosis is e vident.
[2020-02-21] MEDS: BUTORPHANOL 1 MG/ML 1 ML VIAL IV PRN ×2 (16:36→20:06)
[2020-02-21] MEDS: ONDANSETRON 4 MG/2 ML VIAL IVP PRN (16:38)
--- NOTE | 2020-02-21 17:41 | P.HPOB ---
History of Present Illness H&P Date: 02/21/20 Chief Complaint: Intractable nausea and vomiting Pat is a 19-year-old at 27 weeks gestation who began having severe pain in her abdomen with intractable nausea and vomiting starting earlier today. She has a known polycystic kidney disease and known renal stone which is cost her this pain before. She called the office today and we advised her that she needs to come to labor and delivery for IV hydration as she saw nephrology and that was their main suggest was to make sure that she did not get dehydrated. She received 4 mg of morphine on route to the hospital and she believes that that is caused her to be significantly more sick than what she normally is. We did give her IV Zofran and IV Reglan and we were able to get her nausea significantly improved late this afternoon. In seeing her she relates that she feels much much better. She is out of the shower which she normally takes for literally hours on and when she is having this pain as it does relieve some of the muscle spasm that she has. She is living the bed comfortably answering questions and is acting appropriately. At this time we'll plan to continue very conservative care with IV hydration and antiemetics daily NSTs and once she is able to tolerate food and pain is tolerable we'll plan to discharge her to home. At this time we'll likely withhold any consultations but should she have any's worsening of pain or changes were again consult nephrology and for urology for further advice. On physical exam her vital signs are stable and afebrile. Heart regular, lungs clear, extremities without pain. Abdomen soft gravid uterus is noted heart tones show a reassuring pattern and there are no contractions noted on the monitor. Assessment intrauterine at 27 weeks with intractable nausea and vomiting abdominal pain polycystic kidney disease and renal lithiasis Plan as above Past Medical History Past Medical History: No Reported History Additional Past Medical History / Comment(s): polycystic kidney disease History of Any Multi-Drug Resistant Organisms: None Reported Past Surgical History: Section, Cholecystectomy Past Anesthesia/Blood Transfusion Reactions: No Reported Reaction Past Psychological History: ADD/ADHD, Anxiety Smoking Status: Current every day smoker Past Alcohol Use History: None Reported Past Drug Use History: Marijuana - Past Family History Sister(s) Family Medical History: No Reported History Additional Family Medical History / Comment(s): polycystic kidney disease, adhd Medications and Allergies Home Medications Medication Instructions Recorded Confirmed Type Pnv No.95/Ferrous Fum/Folic AC 1 tab PO DAILY 01/17/20 01/24/20 History [ Multivitamin Tablet] HYDROcodone/APAP 5-325MG [[place] 1 tab PO Q4HR PRN #30 tab 01/18/20 01/24/20 Rx 5-325] Acetaminophen Tab [Tylenol] 325 mg PO Q4H PRN 01/24/20 01/24/20 History Ondansetron Odt [Zofran Odt] 4 mg PO DAILY PRN 01/24/20 01/24/20 History Allergies Allergy/AdvReac Type Severity Reaction Status Date / Time ampicillin [From Unasyn] Allergy Mild Rash/Hives Verified 01/24/20 10:02 sulbactam [From Unasyn] Allergy Mild Rash/Hives Verified 01/24/20 10:02 Exam Osteopathic Statement: *. No significant issues noted on an osteopathic structural exam other than those noted in the History and Physical/Consult. Vital Signs Temp Pulse Resp BP Pulse Ox 02/21/20 16:00 97.2 F L 73 18 121/59 100 02/21/20 14:41 97.6 F 64 20 111/56 Intake and Output 02/21/20 02/21/20 02/21/20 06:59 14:59 22:59 Output Total 100 Balance -100 Output: Emesis 100 Other: # Voids 1 Weight 65.771 kg Results Result Diagrams: 02/21/20 13:44 02/21/20 13:44 Abnormal Lab Results - Last 24 Hours (Table) 02/21/20 02/21/20 Range/Units 13:44 13:44 WBC 15.9 H (3.8-10.6) k/uL Neutrophils # 13.2 H (1.3-7.7) k/uL Sodium 136 L (137-145) mmol/L Chloride 111 H (98-107) mmol/L Carbon Dioxide 17 L (22-30) mmol/L Creatinine 0.47 L (0.52-1.04) mg/dL
[2020-02-21] MEDS: METOCLOPRAMIDE 5 MG/ML 2 ML VIAL IVP SCH (19:43)
[2020-02-21] MEDS ORDERED: FAMOTIDINE 20 MG/2 ML VIAL IV SCH (21:00)
[2020-02-22] MEDS: ONDANSETRON 4 MG/2 ML VIAL IVP PRN (00:36)
[2020-02-22] MEDS: METOCLOPRAMIDE 5 MG/ML 2 ML VIAL IVP SCH ×3 (01:19→14:02)
[2020-02-22] MEDS: BUTORPHANOL 1 MG/ML 1 ML VIAL IV PRN (03:26)
[2020-02-22 08:22] VITALS: TEMP 97.8
--- NOTE | 2020-02-22 08:44 | P.PN ---
Progress Note - Text Progress Note Date: 02/22/20 Negative seen and evaluated this morning. She is laying in bed comfortably she relates that her pain is improved somewhat in stable her nausea is completely resolved at this time. She was able to tolerate breakfast and she was able to tolerate some liquids last night. We'll plan to try to advance her diet little bit today, and if she is able to tolerate regular food for lunch, we'll plan discharged home. Prescription for Zofran has are important for to her pharmacy. All the questions are answered for her at this time. We'll await lunch and will speak with Dr. Banda about getting her discharged later today. Vital signs stable afebrile. Heart regular, lungs clear, extremities without pain. Assessment intrauterine 27 weeks with polycystic kidneys and a kidney stone and intractable pain Plan discharged home later today with continued improvement
[2020-02-22 12:43] VITALS: BP 114/57; PULSE 66; RESP 16
== END 2020-02-22 15:45 | disposition home or self-care (01) ==
LOC: FBPOP 12:59 → 4FBP 13:25
PROVIDERS: ADMIT Obstetrics & Gynecology; ATTEND Obstetrics & Gynecology
DX: O26.832 Pregnancy related renal disease, second trimester (principal); Q61.3 Polycystic kidney, unspecified; N20.0 Calculus of kidney; O99.342 Other mental disorders complicating pregnancy, second trimester; F90.9 Attention-deficit hyperactivity disorder, unspecified type; F41.9 Anxiety disorder, unspecified; O99.332 Smoking (tobacco) complicating pregnancy, second trimester; F17.200 Nicotine dependence, unspecified, uncomplicated; Z3A.27 27 weeks gestation of pregnancy; Z79.891 Long term (current) use of opiate analgesic; Z79.899 Other long term (current) drug therapy; Z88.0 Allergy status to penicillin; Z88.8 Allergy status to other drugs, medicaments and biological substances; Z98.891 History of uterine scar from previous surgery; Z90.49 Acquired absence of other specified parts of digestive tract
CPT/HCPCS: 96376 ×2; 96361 ×2; 96374; 96375; 80051; 82565; 84520; 85025; 76770; G0378; J2765; J0595 ×2; J2405 ×2

== ENCOUNTER 2020-03-19 10:48 | Observation (INO) | payer OTHER ==
[2020-03-19] MEDS ORDERED: SODIUM CHLORIDE 0.9% 500 ML 500 ML IV ONE (11:04)
[2020-03-19] MEDS ORDERED: SODIUM CHLORIDE 0.9% 1,000 ML IV SCH (11:15)
[2020-03-19] MEDS ORDERED: MORPHINE SULFATE 2 MG/ML SYRINGE IVP STA (11:42)
[2020-03-19] MEDS ORDERED: ONDANSETRON 4 MG/2 ML VIAL IVP STA (11:42)
[2020-03-19 11:45] LABS: ALT 18 U/L (4-34); AST 21 U/L (14-36); African American GFR (CKD) >90 (>60 ml/min/1.73 sqM); Albumin 3.9 g/dL (3.5-5.0); Alkaline Phosphatase 92 U/L (38-126); Anion Gap 7 mmol/L; Basophils % (A) 0 %; Blood Urea Nitrogen 10 mg/dL (7-17); Calcium 9.3 mg/dL (8.4-10.2); Carbon Dioxide 22 mmol/L (22-30); Chloride 108 mmol/L (98-107); Eosinophils # (A) 0.1 k/uL (0-0.7); Eosinophils % (A) 1 %; Glucose 95 mg/dL (74-99); HCT 42.3 % (34.0-46.0); HGB 13.9 gm/dL (11.4-16.0); Lymphocytes # (A) 2.4 k/uL (1.0-4.8); Lymphocytes % (A) 20 %; MCHC 32.8 g/dL (31.0-37.0); MCV 91.3 fL (80.0-100.0); Mean Platelet Volume 8.4; Monocytes # (A) 0.6 k/uL (0-1.0); Monocytes % (A) 5 %; Neutrophils # (A) 8.6 k/uL (1.3-7.7); Neutrophils % (A) 71 %; Non-African American GFR(CKD) >90 (>60 ml/min/1.73 sqM); Platelet Count 229 k/uL (150-450); Potassium 3.8 mmol/L (3.5-5.1); RBC 4.63 m/uL (3.80-5.40); RDW 12.1 % (11.5-15.5); Sodium 137 mmol/L (137-145); Total Bilirubin 0.6 mg/dL (0.2-1.3); Total Protein 6.9 g/dL (6.3-8.2); WBC 12.1 k/uL (3.8-10.6)
[2020-03-19 12:05] LABS: Amorphous Sediment,Urine Few /hpf; Appearance,Urine Cloudy (Clear); Bacteria,Urine Few /hpf; Bilirubin,Urine Negative (Negative); Blood,Urine Moderate (Negative); Color,Urine Yellow; Glucose,Urine (UA) Negative (Negative); Ketones,Urine 1+ (Negative); Leukocyte Esterase,Urine Large (Negative); Mucus,Urine Many /hpf; Nitrite,Urine Negative (Negative); Protein,Urine 1+ (Negative); RBC,Urine 139 /hpf (0-5); Specific Gravity,Urine 1.025 (1.001-1.035); Squamous Epithelial Cell,Urine 7 /hpf (0-4); WBC,Urine 7 /hpf (0-5)
--- NOTE | 2020-03-19 12:29 | US ---
EXAMINATION TYPE: US renals and bladder DATE OF EXAM: 03/19/2020 COMPARISON: US 02/21/2020 CLINICAL HISTORY: right sided back pain, hx PCKD. Patient is EXAM MEASUREMENTS: Right Kidney: 11.4 x 5.6 x 5.6 cm Left Kidney: 13.5 x 5.7 x 5.7 cm Right Kidney: No hydronephrosis. Multiple cysts visualized, largest 4.1 x 3.2 x 3.0 cm. Multiple echo genic foci, largest 0.6 cm Left Kidney: No hydronephrosis. Multiple cysts visualized, largest 2.9 x 2.7 x 2.5 cm. Multiple echog enic foci, largest 0.4 cm Bladder: Not distended IMPRESSION: 1. Multiple bilateral renal cysts. 2. Nonobstructing renal stones may be present within the bilateral kidneys.
[2020-03-19] MEDS ORDERED: HYDROmorphone 0.5 MG/0.5 ML SYRINGE IVP STA (12:56)
--- NOTE | 2020-03-19 13:04 | ED ---
General Adult HPI - General Chief complaint: Nausea/Vomiting/Diarrhea Stated complaint: Vomiting Time Seen by Provider: 03/19/20 11:03 Source: patient Mode of arrival: wheelchair Limitations: no limitations - History of Present Illness Initial comments: 19-year-old female presenting today for chief complaints of right flank pain. Patient's history of polycystic kidney disease and often has kidney stones. She states she feels similar to kidney stones in the past she has noticed some darkening of her urine denies any fever chills dysuria urgency frequency. Patient states she is currently 31 weeks . She denies any abdominal cramping and vaginal bleeding. Patient states she is not concerned about her baby but was more so concerned that she had a kidney stone. Patient presented for pain management. She denies additional complaints or concern.D enies CP/SOB. - Related Data Home Medications Medication Instructions Recorded Confirmed Pnv No.95/Ferrous Fum/Folic AC 1 tab PO DAILY 01/17/20 03/19/20 [ Multivitamin Tablet] Ondansetron Odt [Zofran Odt] 4 mg PO DAILY PRN 01/24/20 03/19/20 Allergies Allergy/AdvReac Type Severity Reaction Status Date / Time ampicillin [From Unasyn] Allergy Mild Rash/Hives Verified 03/19/20 11:03 sulbactam [From Unasyn] Allergy Mild Rash/Hives Verified 03/19/20 11:03 Review of Systems ROS Statement: Those systems with pertinent positive or pertinent negative responses have been documented in the HPI. ROS Other: All systems not noted in ROS Statement are negative. Past Medical History Past Medical History: No Reported History Additional Past Medical History / Comment(s): polycystic kidney disease History of Any Multi-Drug Resistant Organisms: None Reported Past Surgical History: Section, Cholecystectomy Past Anesthesia/Blood Transfusion Reactions: No Reported Reaction Past Psychological History: ADD/ADHD, Anxiety Smoking Status: Current every day smoker Past Alcohol Use History: None Reported Past Drug Use History: Marijuana - Past Family History Sister(s) Family Medical History: No Reported History Additional Family Medical History / Comment(s): polycystic kidney disease, adhd General Exam - General Exam Comments Initial Comments: General: The patient is awake and alert, appear uncomfortable grabbing right flank Eye: +3 mm pupils are equal, round and reactive to light, extra-ocular movements are intact. No nystagmus. There is normal conjunctiva bilaterally. No signs of icterus. Ears, nose, mouth and throat: There are moist mucous membranes and no oral lesions. Neck: The neck is supple, there is no tenderness or JVD. Cardiovascular: There is a regular rate and rhythm. No murmur, rub or gallop is appreciated. Respiratory: Lungs are clear to auscultation, respirations are non-labored, br eath sounds are equal. No wheezes, stridor, rales, or rhonchi. Gastrointestinal: Soft, non-distended, non-tender abdomen without masses or organomegaly noted. There is no rebound or guarding present. Musculoskeletal: Normal ROM, no tenderness. Strength 5/5. Sensation intact. Pulses equal bilaterally 2+. Neurological: A&O x 3. CN II-XII intact grossly, There are no obvious motor or sensory deficits. Coordination appears grossly intact. Speech is normal. Skin: Skin is warm and dry and no rashes or lesions are noted. Psychiatric: Cooperative, appropriate mood & affect, normal judgment. Limitations: no limitations Course Vital Signs 03/19/20 03/19/20 03/19/20 11:00 12:22 13:50 Temperature 97.4 F L 97.6 F Pulse Rate 61 75 58 L Respiratory 16 16 18 Rate Blood Pressure 119/72 105/57 105/70 O2 Sat by Pulse 98 99 97 Oximetry Medical Decision Making - Medical Decision Making 19 year female presented for right flank pain history of polycystic kidney disease stones or significant hematuria. No obvious stone in the ureters however there is nephrolithiasis. Patient case discussed with CUSTOMER [employer] Dr. Willis who accepted admission stating he will take over further management and pain control as needed. patient agreeable to admission. Dr. Ramsey agreeable to care plan and admission - Lab Data Result diagrams: 03/19/20 11:15 03/19/20 11:15 Lab Results 03/19/20 03/19/20 03/19/20 Range/Units 11:15 11:15 11:38 WBC 12.1 H (3.8-10.6) k/uL RBC 4.63 (3.80-5.40) m/uL Hgb 13.9 (11.4-16.0) gm/dL Hct 42.3 (34.0-46.0) % MCV 91.3 (80.0-100.0) fL MCH 30.0 (25.0-35.0) pg MCHC 32.8 (31.0-37.0) g/dL RDW 12.1 (11.5-15.5) % Plt Count 229 (150-450) k/uL Neutrophils % 71 % Lymphocytes % 20 % Monocytes % 5 % Eosinophils % 1 % Basophils % 0 % Neutrophils # 8.6 H (1.3-7.7) k/uL Lymphocytes # 2.4 (1.0-4.8) k/uL Monocytes # 0.6 (0-1.0) k/uL Eosinophils # 0.1 (0-0.7) k/uL Basophils # 0.0 (0-0.2) k/uL Sodium 137 (137-145) mmol/L Potassium 3.8 (3.5-5.1) mmol/L Chloride 108 H (98-107) mmol/L Carbon Dioxide 22 (22-30) mmol/L Anion Gap 7 mmol/L BUN 10 (7-17) mg/dL Creatinine 0.63 (0.52-1.04) mg/dL Est GFR (CKD-EPI)AfAm >90 (>60 ml/min/1.73 sqM) Est GFR (CKD-EPI)NonAf >90 (>60 ml/min/1.73 sqM) Glucose 95 (74-99) mg/dL Calcium 9.3 (8.4-10.2) mg/dL Total Bilirubin 0.6 (0.2-1.3) mg/dL AST 21 (14-36) U/L ALT 18 (4-34) U/L Alkaline Phosphatase 92 (38-126) U/L Total Protein 6.9 (6.3-8.2) g/dL Albumin 3.9 (3.5-5.0) g/dL Urine Color Yellow Urine Appearance Cloudy H (Clear) Urine pH 7.0 (5.0-8.0) Ur Specific [place] 1.025 (1.001-1.035) Urine Protein 1+ H (Negative) Urine Glucose (UA) Negative (Negative) Urine Ketones 1+ H (Negative) Urine Blood Moderate H (Negative) Urine Nitrite Negative (Negative) Urine Bilirubin Negative (Negative) Urine Urobilinogen 3.0 (<2.0) mg/dL Ur Leukocyte Esterase Large H (Negative) Urine RBC 139 H (0-5) /hpf Urine WBC 7 H (0-5) /hpf Ur Squamous Epith Cells 7 H (0-4) /hpf Amorphous Sediment Few H (None) /hpf Urine Bacteria Few H (None) /hpf Urine Mucus Many H (None) /hpf Disposition Clinical Impression: Nephrolithiasis, Right flank pain, Vomiting, 31 weeks gestation of Disposition: ADMITTED IP TO THIS [facility] Condition: Stable Is patient prescribed a controlled substance at d/c from ED?: No Time of Disposition: 13:11 Decision to Admit Reason: Admit from EC Decision Date: 03/19/20 Decision Time: 13:11
[2020-03-19] MEDS ORDERED: NALOXONE 0.4 MG/ML 1 ML VIAL IV PRN (13:07)
[2020-03-19] MEDS ORDERED: BUTORPHANOL 1 MG/ML 1 ML VIAL IV PRN (14:49)
--- NOTE | 2020-03-19 15:08 | P.HPOB ---
History of Present Illness H&P Date: 03/19/20 Chief Complaint: Right flank pain This patient is a 19-year-old 3 para 1 female estimated date of confinement 05/18/2020 estimated gestational age 31-4/7 weeks who presented to the emergency department earlier today with complaints of severe right-sided flank pain and episode of emesis. Patient's care is per Dr. Engle. Patient was admitted for similar symptomatology last month and has known polycystic kidney disease (dominant variant) and kidney stones. Patient states that she was doing well until yesterday she began developing a right sided pain again and became much more severe this morning and then had an episode of emesis. She was concerned that she would get dehydrated so she came to the emergency department. Patient was seen by the emergency physician and given multiple doses of Dilaudid due to intractable pain. Emergency room physician called me and felt that the patient required admission due to inability to control her discomfort. Patient denies any fever or chills. Patient has been seen by maternal medicine. Patient's also complicated by daily tobacco and marijuana use. Review of Systems Constitutional: Reports as per HPI Gastrointestinal: Reports nausea, Reports vomiting Genitourinary: Reports flank pain, Reports Menstruation: Reports amenorrhea Past Medical History Past Medical History: No Reported History Additional Past Medical History / Comment(s): polycystic kidney disease History of Any Multi-Drug Resistant Organisms: None Reported Past Surgical History: Section, Cholecystectomy Past Anesthesia/Blood Transfusion Reactions: No Reported Reaction Past Psychological History: ADD/ADHD, Anxiety, Depression Smoking Status: Current every day smoker Past Alcohol Use History: None Reported Past Drug Use History: Marijuana - Past Family History Sister(s) Family Medical History: No Reported History Additional Family Medical History / Comment(s): polycystic kidney disease, adhd Medications and Allergies Home Medications Medication Instructions Recorded Confirmed Type Pnv No.95/Ferrous Fum/Folic AC 1 tab PO DAILY 01/17/20 03/19/20 History [ Multivitamin Tablet] Ondansetron Odt [Zofran Odt] 4 mg PO DAILY PRN 01/24/20 03/19/20 History Allergies Allergy/AdvReac Type Severity Reaction Status Date / Time ampicillin [From Unasyn] Allergy Mild Rash/Hives Verified 03/19/20 11:03 sulbactam [From Unasyn] Allergy Mild Rash/Hives Verified 03/19/20 11:03 Exam Vital Signs Temp Pulse Pulse Resp BP BP Pulse Ox 03/19/20 14:01 97.3 F L 51 L 14 111/59 03/19/20 13:50 97.6 F 58 L 18 105/70 97 03/19/20 12:22 75 16 105/57 99 03/19/20 11:00 97.4 F L 61 16 119/72 98 Intake and Output 03/18/20 03/19/20 03/19/20 22:59 06:59 14:59 Other: Weight 67.132 kg - OBG Physical Exam Abdomen: bowel sounds normal, no diffuse tenderness, no bruit present, no guarding noted, no hepatomegaly, no splenomegaly, no mass Results blood work shows she is B+ rubella immune, RPR is nonreactive, hepatitis B is negative, HIV is nonreactive, patient has not completed her glucose testing as of yet. Result Diagrams: 03/19/20 11:15 03/19/20 11:15 Abnormal Lab Results - Last 24 Hours (Table) 03/19/20 03/19/20 03/19/20 Range/Units 11:15 11:15 11:38 WBC 12.1 H (3.8-10.6) k/uL Neutrophils # 8.6 H (1.3-7.7) k/uL Chloride 108 H (98-107) mmol/L Urine Appearance Cloudy H (Clear) Urine Protein 1+ H (Negative) Urine Ketones 1+ H (Negative) Urine Blood Moderate H (Negative) Ur Leukocyte Esterase Large H (Negative) Urine RBC 139 H (0-5) /hpf Urine WBC 7 H (0-5) /hpf Ur Squamous Epith Cells 7 H (0-4) /hpf Amorphous Sediment Few H (None) /hpf Urine Bacteria Few H (None) /hpf Urine Mucus Many H (None) /hpf Assessment and Plan Assessment: This is a 19-year-old 3 para 1 female 31-4/7 weeks gestation with right- sided flank pain, history of polycystic kidney disease and known nephrolithiasis. Patient does not have a fever or significant white count elevation, however I'm going to prophylactically place her on IV antibiotics and do a urine culture because I do not see one in the recent past. Patient at this time is going to try some oral pain medications. Also IV hydration and strict I's and O's. (1) 31 weeks gestation of Current Visit: Yes Status: Acute Code(s): Z3A.31 - 31 WEEKS GESTATION OF SNOMED Code(s): 96506435 (2) Polycystic kidney disease Current Visit: Yes Status: Acute Code(s): Q61.3 - POLYCYSTIC KIDNEY, UNSPECIFIED SNOMED Code(s): 397610229 (3) Nephrolithiasis Current Visit: Yes Status: Acute Code(s): N20.0 - CALCULUS OF KIDNEY SNOMED Code(s): 83001416 (4) Right flank pain Current Visit: Yes Status: Acute Code(s): R10.9 - UNSPECIFIED ABDOMINAL PAIN SNOMED Code(s): 606416917 (5) Substance abuse Current Visit: Yes Status: Acute Code(s): F19.10 - OTHER PSYCHOACTIVE SUBSTANCE ABUSE, UNCOMPLICATED SNOMED Code(s): 57343462
[2020-03-19] MEDS: LACTATED RINGERS 1,000 ML IV SCH (15:20)
[2020-03-20] MEDS: Acetaminophen-Codeine 300-30mg TAB PO PRN ×3 (00:34→13:15)
[2020-03-20] MEDS: ONDANSETRON 4 MG/2 ML VIAL IVP PRN ×2 (00:34→13:12)
[2020-03-20] MEDS: LACTATED RINGERS 1,000 ML IV SCH ×2 (00:35→08:50)
[2020-03-20 06:22] LABS: Basophils % (A) 0 %; Eosinophils # (A) 0.1 k/uL (0-0.7); Eosinophils % (A) 1 %; HCT 36.1 % (34.0-46.0); HGB 12.3 gm/dL (11.4-16.0); Lymphocytes # (A) 2.7 k/uL (1.0-4.8); Lymphocytes % (A) 30 %; MCH 31.4 pg (25.0-35.0); MCHC 34.1 g/dL (31.0-37.0); MCV 92.1 fL (80.0-100.0); Mean Platelet Volume 8.6; Monocytes # (A) 0.5 k/uL (0-1.0); Monocytes % (A) 6 %; Neutrophils # (A) 5.7 k/uL (1.3-7.7); Neutrophils % (A) 62 %; Platelet Count 194 k/uL (150-450); RBC 3.92 m/uL (3.80-5.40); RDW 12.5 % (11.5-15.5); WBC 9.2 k/uL (3.8-10.6)
[2020-03-20 09:18] VITALS: PULSE 56
--- NOTE | 2020-03-20 13:32 | P.DS ---
Providers Date of admission: 03/19/20 13:23 Expected date of discharge: 03/20/20 Attending physician: Marky Engle Primary care physician: Cherry Latif Hospital Course: Seen and evaluated this point. She is overall doing much better. Her pain is better tolerated all Tylenol 3 and will plan to discharge her to home was Tylenol 3 has a when necessary medication rather than have her in the hospital. Her son is at home and she is having a struggle was care so she cannot stay in the hospital. We'll plan discharged home today pressure for Zofran was also before to the pharmacy. She is aware to return with any severe pain high tem peratures heavy bleeding signs or symptoms or return labor. Overall again she is stable for discharge based on her vital signs and her labs. Her heart is otherwise regular and lungs are clear. Abdomen soft and positive bowel sounds are noted. Category 1 tracing had been noted earlier. All questions are answered for her prior to her discharge. Patient Condition at Discharge: Stable Plan - Discharge Summary Discharge Rx Participant: No New Discharge Prescriptions: New Acetaminophen-Codeine 300-30mg [Tylenol #3] 1 tab PO Q4H PRN #30 tablet PRN Reason: Pain Ondansetron Odt [Zofran Odt] 4 mg PO Q8HR PRN 10 Days #30 tab PRN Reason: Nausea No Action Pnv No.95/Ferrous Fum/Folic AC [ Multivitamin Tablet] 1 tab PO DAILY Ondansetron Odt [Zofran Odt] 4 mg PO DAILY PRN PRN Reason: Nausea Discharge Medication List Pnv No.95/Ferrous Fum/Folic AC [ Multivitamin Tablet] 1 tab PO DAILY 01/17/20 [History] Ondansetron Odt [Zofran Odt] 4 mg PO DAILY PRN 01/24/20 [History] Acetaminophen-Codeine 300-30mg [Tylenol #3] 1 tab PO Q4H PRN #30 tablet 03/20/20 [Rx] Ondansetron Odt [Zofran Odt] 4 mg PO Q8HR PRN 10 Days #30 tab 03/20/20 [Rx] Follow up Appointment(s)/Referral(s): Cherry Latif MD [Primary Care Provider] - 1-2 days Discharge Disposition: HOME SELF-CARE
[2020-03-20 14:13] VITALS: BP 118/85; RESP 18; TEMP 97.9
== END 2020-03-20 14:13 | disposition home or self-care (01) ==
LOC: EC 10:48 → 4FBP 13:23
PROVIDERS: ADMIT Obstetrics & Gynecology; ATTEND Obstetrics & Gynecology
DX: R10.30 Lower abdominal pain, unspecified (principal); O21.2 Late vomiting of pregnancy; O26.833 Pregnancy related renal disease, third trimester; F12.90 Cannabis use, unspecified, uncomplicated; F17.200 Nicotine dependence, unspecified, uncomplicated; F32.9 Major depressive disorder, single episode, unspecified; F41.9 Anxiety disorder, unspecified; F90.9 Attention-deficit hyperactivity disorder, unspecified type; O99.323 Drug use complicating pregnancy, third trimester; O99.333 Smoking (tobacco) complicating pregnancy, third trimester; O99.343 Other mental disorders complicating pregnancy, third trimester; O99.89 Other specified diseases and conditions complicating pregnancy, childbirth and the puerperium; Z3A.31 31 weeks gestation of pregnancy; Q61.3 Polycystic kidney, unspecified; Z82.71 Family history of polycystic kidney; Z87.442 Personal history of urinary calculi
CPT/HCPCS: 96376; 96361 ×2; 96365; 96375 ×2; 99285; 36415; 80053; 85025 ×2; 81001; 87086; 76770; G0378 ×2; J0595; J2405 ×2; J0690 ×2; J2270; J1170

== ENCOUNTER 2020-04-10 12:46 | Outpatient (CLI) | payer OTHER ==
[2020-04-10 13:14] LABS: Amorphous Sediment,Urine Rare /hpf; Appearance,Urine Cloudy (Clear); Bilirubin,Urine Negative (Negative); Blood,Urine Negative (Negative); Color,Urine Yellow; Glucose,Urine (UA) Negative (Negative); Ketones,Urine Negative (Negative); Leukocyte Esterase,Urine Small (Negative); Mucus,Urine Moderate /hpf; Nitrite,Urine Negative (Negative); Protein,Urine Negative (Negative); Specific Gravity,Urine 1.022 (1.001-1.035); Squamous Epithelial Cell,Urine 10 /hpf (0-4); Urobilinogen,Urine <2.0 mg/dL (<2.0); WBC,Urine 2 /hpf (0-5)
[2020-04-10 14:01] VITALS: BP 144/73; PULSE 63; RESP 16; TEMP 96.7
--- NOTE | 2020-04-18 03:39 | P.MSEPDOC ---
Presenting Problems - Arrival Data Date of Arrival on Unit: 04/10/20 Time of Arrival on Unit: 12:46 Mode of Transport: Ambulatory - Complaint OB-Reason for Admission/Chief Complaint: Pain Comment: lower back pain that started a few hours after intercourse this am Medical History - Information : 3 Para: 1 Term: 1 : 0 Abortions: Spontaneous or Elective: 1 Number of Living Children: 0 - Gestational Age Gestational Age by JUAN (wks/days): 34 Weeks and 4 Days - History Complications: Prior Review of Systems - Review of Systems Constitutional: No problems Breast: No problems ENT: No problems Cardiovascular: No problems Respiratory: No problems Gastrointestinal: No problems Genitourinary: No problems Musculoskeletal: No problems Neurological: No problems Skin: No problems Comment: history of kidney stones and polycystic kidney disease Vital Signs - Temperature Temperature: 96.7 F Temperature Source: Temporal Artery Scan - Pulse Right Sitting Pulse Rate: 63 Pulse Assessment Method: Automatic Cuff - Respirations Respiratory Rate: 16 Oxygen Delivery Method: Room Air - Blood Pressure Right Arm Blood Pressure: 144/73 Blood Pressure Mean: 96 Blood Pressure Source: Automatic Cuff - Comment Vital Signs Comment: repeat bp 129/70 Medical Screen Scoring (Pre) - Cervical Exam Dilation: Exam Deferred Effacement: Exam Deferred - Uterine Contractions Frequency: N/A Duration: N/A Intensity: N/A - Maternal Vital Signs Maternal Temperature: N/A Maternal Blood Pressure: N/A Signs of Preeclampsia: N/A Maternal Respirations: N/A - Maternal Trauma Maternal Trauma: N/A - Assessment - Baby A Baseline FHR: 125 Heart Rate - NICHD Category: Category I (Normal) = 0 NST: Reactive Position: N/A Station: N/A - Total Score - Baby A Total Score - Baby A: 0 - Total Score - Baby B Total Score - Baby B: 0 - Total Score - Baby C Total Score - Baby C: 0 - Level of Risk - Baby A Level of Risk - Baby A: Low (0-5) - Level of Risk - Baby B Level of Risk - Baby B: Low (0-5) - Level of Risk - Baby C Level of Risk - Baby C: Low (0-5) Physician Notification (Pre) - Physician Notified Physician Notified Date: 04/10/20 Physician Notified Time: 13:46 New Order Received: Yes (d/c home) Disposition - Disposition OB Disposition: Discharge to home Discharge Date: 04/10/20 Discharge Time: 13:50 I agree with the RN Medical Screening Exam: Yes Risk & Benefit of care provided described in d/c instruction: Yes Diagnosis: RELATED CONDITIONS, UNSPECIFIED, THIRD TRIMESTER
== END 2020-04-10 13:50 | disposition home or self-care (01) ==
LOC: FBPOP 12:46
PROVIDERS: ATTEND Obstetrics & Gynecology
DX: O26.93 Pregnancy related conditions, unspecified, third trimester (principal); Z3A.34 34 weeks gestation of pregnancy
CPT/HCPCS: 59025; 81001; G0463; 99213

== ENCOUNTER 2020-04-12 12:10 | Observation (INO) | payer OTHER ==
[2020-04-12] MEDS ORDERED: HYDROmorphone 0.5 MG/0.5 ML SYRINGE IVP PRN ×2 (12:36→15:27)
[2020-04-12] MEDS: LACTATED RINGERS 1,000 ML IV SCH ×2 (12:53→15:52)
[2020-04-12 13:00] LABS: Appearance,Urine Cloudy (Clear); Bilirubin,Urine Negative (Negative); Blood,Urine Small (Negative); Color,Urine Yellow; Glucose,Urine (UA) Negative (Negative); Hyaline Casts,Urine 3 /lpf (0-2); Ketones,Urine Negative (Negative); Leukocyte Esterase,Urine Small (Negative); Mucus,Urine Few /hpf; Nitrite,Urine Negative (Negative); PH, Urine 6.5 (5.0-8.0); Protein,Urine Trace (Negative); RBC,Urine 51 /hpf (0-5); Specific Gravity,Urine 1.024 (1.001-1.035); Squamous Epithelial Cell,Urine 3 /hpf (0-4); Urobilinogen,Urine <2.0 mg/dL (<2.0); WBC,Urine 1 /hpf (0-5)
[2020-04-12 13:06] LABS: Basophils % (A) 0 %; Eosinophils # (A) 0.1 k/uL (0-0.7); Eosinophils % (A) 1 %; HCT 39.8 % (34.0-46.0); HGB 13.3 gm/dL (11.4-16.0); Lymphocytes # (A) 1.8 k/uL (1.0-4.8); Lymphocytes % (A) 15 %; MCH 31.6 pg (25.0-35.0); MCHC 33.4 g/dL (31.0-37.0); MCV 94.6 fL (80.0-100.0); Mean Platelet Volume 9.1; Monocytes # (A) 0.5 k/uL (0-1.0); Monocytes % (A) 4 %; Neutrophils # (A) 9.7 k/uL (1.3-7.7); Neutrophils % (A) 78 %; Platelet Count 178 k/uL (150-450); RDW 12.2 % (11.5-15.5); WBC 12.3 k/uL (3.8-10.6)
[2020-04-12 13:17] LABS: ALT 15 U/L (4-34); AST 24 U/L (14-36); African American GFR (CKD) >90 (>60 ml/min/1.73 sqM); Albumin 3.3 g/dL (3.5-5.0); Alkaline Phosphatase 111 U/L (38-126); Anion Gap 5 mmol/L; Blood Urea Nitrogen 12 mg/dL (7-17); Calcium 8.5 mg/dL (8.4-10.2); Carbon Dioxide 19 mmol/L (22-30); Chloride 112 mmol/L (98-107); Glucose 92 mg/dL (74-99); Non-African American GFR(CKD) >90 (>60 ml/min/1.73 sqM); Sodium 136 mmol/L (137-145); Total Bilirubin 0.5 mg/dL (0.2-1.3); Total Protein 6.1 g/dL (6.3-8.2)
--- NOTE | 2020-04-12 13:47 | US ---
EXAMINATION TYPE: US kidneys/renal and bladder DATE OF EXAM: 04/12/2020 COMPARISON: Ultrasound kidneys 03/19/2020 CLINICAL HISTORY: kidney stone. EXAM MEASUREMENTS: Right Kidney: 12.4 x 5.7 x 6.4 cm Left Kidney: 13.1 x 5.6 x 6.5 cm Right Kidney: No hydronephrosis. Multiple cysts visualized, largest 3.2 x 3.5 x 3.7 cm. Multiple nons hadowing echogenic foci. Nonshadowing calculus measuring 1.0 cm within the lower pole redemonstrated. Left Kidney: No hydronephrosis. Multiple cysts visualized, largest 2.9 x 2.7 x 2.5 cm. Multiple nonsh adowing echogenic foci, largest 0.4 cm Bladder: Not distended IMPRESSION: 1. No hydronephrosis bilaterally. 2. Numerous redemonstrated bilateral renal cysts. 3. Redemonstrated 1.0 cm right renal calculus.
[2020-04-12] MEDS: FAMOTIDINE 20 MG/2 ML VIAL IV SCH (14:59)
[2020-04-12] MEDS ORDERED: METOCLOPRAMIDE 5 MG/ML 2 ML VIAL IVP PRN (17:01)
--- NOTE | 2020-04-12 17:09 | P.HPOB ---
History of Present Illness H&P Date: 04/12/20 Chief Complaint: To 36 and 4 weeks 6 days with intractable pain from kidney stones Pat is a 19-year-old female well known to me from this and multiple admissions for same. She is having severe right sided low back pain due to her kidney stone. Ultrasounds and labs were obtained and show no real significant changes. We will review and decide if further consultations need to be made, but will plan to consult urology. I did speak to the maternal- medicine team and they recommended IV and IM pain medication and will add Reglan to her antinausea regimen and IV Tylenol as needed as well. heart tones are in the 130s to 140s and are reactive she is having occasional contractions but these do not appear to be labor-like she was 1 cm dilated cervix was thick and she was -3 station. We will monitor very closely. I did offer her a transfer to the high [facility] on the off chance that she did come labor there is another problem to be evaluated as she is not 35 weeks and we would have to transfer her anyway. However, she declines transfer and would prefer to stay here as we know her care past. All questions are answered for her. When I did go in and see her in the last few minutes, her pain seems to be slightly better controlled she seems to be a little bit better movement and hopefully if we can get her pain under control will not have to take any other major changes to her plan. Vital signs are stable otherwise and she is afebrile. Past Medical History Past Medical History: No Reported History Additional Past Medical History / Comment(s): polycystic kidney disease History of Any Multi-Drug Resistant Organisms: None Reported Past Surgical History: Section, Cholecystectomy Past Anesthesia/Blood Transfusion Reactions: No Reported Reaction Smoking Status: Current every day smoker - Past Family History Sister(s) Family Medical History: No Reported History Additional Family Medical History / Comment(s): polycystic kidney disease, adhd Medications and Allergies Home Medications Medication Instructions Recorded Confirmed Type Pnv No.95/Ferrous Fum/Folic AC 1 tab PO DAILY 01/17/20 04/10/20 History [ Multivitamin Tablet] Ondansetron Odt [Zofran Odt] 4 mg PO Q8HR PRN 10 Days #30 tab 03/20/20 04/10/20 Rx Acetaminophen-Codeine 300-30mg 1 tab 04/12/20 History [Tylenol w/codeine #3] Allergies Allergy/AdvReac Type Severity Reaction Status Date / Time ampicillin [From Unasyn] Allergy Mild Rash/Hives Verified 04/12/20 12:19 sulbactam [From Unasyn] Allergy Mild Rash/Hives Verified 04/12/20 12:19 Exam Osteopathic Statement: *. No significant issues noted on an osteopathic structural exam other than those noted in the History and Physical/Consult. Vital Signs Temp Pulse Resp BP Pulse Ox 04/12/20 12:22 97.6 F 55 L 20 132/61 99 Intake and Output 04/12/20 04/12/20 04/12/20 06:59 14:59 22:59 Other: Weight 65.771 kg - OBG Physical Exam Breast: both: normal (no masses) Abdomen: bowel sounds normal, no diffuse tenderness, no bruit present, no gua rding noted, no hepatomegaly, no splenomegaly, no mass Vulva: both: normal Vagina: normal moisture, no discharge Cervix: no lesion, no discharge Uterus: normal size, normal contour Adnexa: both: normal Anus/Rectum: normal perianal skin, no rectal mass, no hemorrhoids, heme negative Results Result Diagrams: 04/12/20 12:48 04/12/20 12:48 Abnormal Lab Results - Last 24 Hours (Table) 04/12/20 04/12/20 04/12/20 Range/Units 12:40 12:48 12:48 WBC 12.3 H (3.8-10.6) k/uL Neutrophils # 9.7 H (1.3-7.7) k/uL Sodium 136 L (137-145) mmol/L Chloride 112 H (98-107) mmol/L Carbon Dioxide 19 L (22-30) mmol/L Total Protein 6.1 L (6.3-8.2) g/dL Albumin 3.3 L (3.5-5.0) g/dL Urine Appearance Cloudy H (Clear) Urine Protein Trace H (Negative) Urine Blood Small H (Negative) Ur Leukocyte Esterase Small H (Negative) Urine RBC 51 H (0-5) /hpf Hyaline Casts 3 H (0-2) /lpf Urine Mucus Few H (None) /hpf
[2020-04-12] MEDS ORDERED: ACETAMINOPHEN IV (For NPO) 1,000 MG in EMPTY BAG 1 BAG IVPB ONE (17:45)
[2020-04-12] MEDS: BUTORPHANOL 1 MG/ML 1 ML VIAL IM PRN (19:08)
[2020-04-12] MEDS: BUTORPHANOL 1 MG/ML 1 ML VIAL IV PRN (19:09)
[2020-04-13] MEDS: BUTORPHANOL 1 MG/ML 1 ML VIAL IM PRN ×2 (00:28→10:53)
[2020-04-13] MEDS: BUTORPHANOL 1 MG/ML 1 ML VIAL IV PRN ×2 (00:29→10:52)
[2020-04-13 07:31] VITALS: BP 119/57; PULSE 65; RESP 17; TEMP 98
[2020-04-13] MEDS ORDERED: TAMSULOSIN 0.4 MG CAP.ER.24H PO SCH (08:30)
[2020-04-13] MEDS: FAMOTIDINE 20 MG/2 ML VIAL IV SCH (09:15)
--- NOTE | 2020-04-13 09:20 | P.PN ---
Progress Note - Text Progress Note Date: 04/13/20 Negative seen and evaluated this morning. She appears comfortable this morning, she denies passing any stones but urology did see her last night. The plan for neurologist in current care. We will make every effort to try to discharge her to home today if pain continues to be tolerable. She and I did discuss that at some point if she continues to have this pain ultimately we may end up having to deliver her sometime after 37 weeks. We will rediscuss it with maternal- medicine but at some point I'm very concerned that the increased stress from the pain and my inability to really control pain during this process may have an impact on the and the baby. Otherwise heart rate is category 1 tracing this morning and she denies any contractions this morning. Her vital signs are otherwise stable and she is afebrile.
--- NOTE | 2020-04-13 16:58 | P.DS ---
Providers Date of admission: 04/12/20 16:56 Expected date of discharge: 04/13/20 Attending physician: Marky Engle Consults: 04/12/20 16:58 Consult Physician Urgent Consulting Provider: Yosvany Blake Consult Reason/Comments: renal lithiasis Do you want consulting provider notified?: Yes Placement Type Exists?: Yes Primary care physician: Stated None Hospital Course: Pat is doing relatively well this afternoon. Her pain is much better controlled and she is now again on oral pain medication. She is requesting discharge home. We'll plan discharged home this evening with prescriptions for Zofran and Flomax. She'll continue Flomax daily. All questions are answered for her and discharge instructions were thoroughly reviewed. She is stable for discharge this time. NST is reactive and her vital signs are stable and afebrile. She has an appointment to see me in the next few days. Patient Condition at Discharge: Stable Plan - Discharge Summary New Discharge Prescriptions: New Tamsulosin HCl [Flomax] 0.4 mg PO QAM #30 capsule Ondansetron Odt [Zofran Odt] 4 mg PO Q8HR PRN #30 tab PRN Reason: Nausea No Action Pnv No.95/Ferrous Fum/Folic AC [ Multivitamin Tablet] 1 tab PO DAILY Ondansetron Odt [Zofran Odt] 4 mg PO Q8HR PRN 10 Days #30 tab PRN Reason: Nausea Acetaminophen-Codeine 300-30mg [Tylenol w/codeine #3] 1 tab Discharge Medication List Pnv No.95/Ferrous Fum/Folic AC [ Multivitamin Tablet] 1 tab PO DAILY 01/17/20 [History] Ondansetron Odt [Zofran Odt] 4 mg PO Q8HR PRN 10 Days #30 tab 03/20/20 [Rx] Acetaminophen-Codeine 300-30mg [Tylenol w/codeine #3] 1 tab 04/12/20 [History] Ondansetron Odt [Zofran Odt] 4 mg PO Q8HR PRN #30 tab 04/13/20 [Rx] Tamsulosin HCl [Flomax] 0.4 mg PO QAM #30 capsule 04/13/20 [Rx] Follow up Appointment(s)/Referral(s): Kuester,Marky, DO [Doctor of Osteopathic Medicine] - 1 Week Activity/Diet/Wound Care/Special Instructions: Term with recurrence of symptoms or signs or symptoms of labor or bleeding or other problems Discharge Disposition: HOME SELF-CARE
--- NOTE | 2020-04-13 17:47 | P.GSCN ---
History of Present Illness Consult date: 04/13/20 Reason for Consult: Right flank pain History of present illness: Ms Ames is a 19-year-old 35 weeks female who is admitted to the hospital with severe right sided low back pain. On presentation when a renal bladder ultrasound showed a 1 cm right lower pole stone. Of note there is no hydronephrosis in either kidney. The stone has been present at least since 2018 based on a review of the CAT scan. Of note she also has history of polycystic kidney disease. This am she indicated her pain has improved, denies any N/V. denies any gross hematuria or dysuria Review of Systems - Constitutional Denies chills, Denies fever - EENT Ears, nose, mouth and throat: Denies dysphagia - Cardiovascular Denies chest pain, Denies shortness of breath - Respiratory Denies cough, Denies 7 - Gastrointestinal Reports as per HPI - Genitourinary Genitourinary: Reports flank pain, Reports kidney stones Past Medical History Past Medical History: Renal Disease Additional Past Medical History / Comment(s): polycystic kidney disease History of Any Multi-Drug Resistant Organisms: None Reported Past Surgical History: Section, Cholecystectomy Past Anesthesia/Blood Transfusion Reactions: No Reported Reaction Past Psychological History: ADD/ADHD, Anxiety Smoking Status: Current every day smoker Past Alcohol Use History: None Reported Past Drug Use History: Marijuana - Past Family History Sister(s) Family Medical History: No Reported History Additional Family Medical History / Comment(s): polycystic kidney disease, adhd Medications and Allergies Home Medications Medication Instructions Recorded Confirmed Type Pnv No.95/Ferrous Fum/Folic AC 1 tab PO DAILY 01/17/20 04/10/20 History [ Multivitamin Tablet] Ondansetron Odt [Zofran Odt] 4 mg PO Q8HR PRN 10 Days #30 tab 03/20/20 04/10/20 Rx Acetaminophen-Codeine 300-30mg 1 tab 04/12/20 History [Tylenol w/codeine #3] Ondansetron Odt [Zofran Odt] 4 mg PO Q8HR PRN #30 tab 04/13/20 Rx Tamsulosin HCl [Flomax] 0.4 mg PO QAM #30 capsule 04/13/20 Rx Allergies Allergy/AdvReac Type Severity Reaction Status Date / Time ampicillin [From Unasyn] Allergy Mild Rash/Hives Verified 04/12/20 12:19 sulbactam [From Unasyn] Allergy Mild Rash/Hives Verified 04/12/20 12:19 Surgical - Exam Vital Signs Temp Pulse Resp BP Pulse Ox 97.6 F 55 L 20 132/61 99 04/12/20 12:22 04/12/20 12:22 04/12/20 12:22 04/12/20 12:22 04/12/20 12:22 - General well developed, well nourished, no distress, moderate pain - Eyes PERRL, normal ocular movement - ENT normal nares, normal mucosa - Respiratory normal expansion, normal respiratory effort - Abdomen Abdomen: soft, non tender - Psychiatric oriented to time, oriented to person, oriented to place, speech is normal Results - Labs 04/12/20 12:48 04/12/20 12:48 Abnormal Lab Results - Last 24 Hours (Table) 04/12/20 04/12/20 04/12/20 Range/Units 12:40 12:48 12:48 WBC 12.3 H (3.8-10.6) k/uL Neutrophils # 9.7 H (1.3-7.7) k/uL Sodium 136 L (137-145) mmol/L Chloride 112 H (98-107) mmol/L Carbon Dioxide 19 L (22-30) mmol/L Total Protein 6.1 L (6.3-8.2) g/dL Albumin 3.3 L (3.5-5.0) g/dL Urine Appearance Cloudy H (Clear) Urine Protein Trace H (Negative) Urine Blood Small H (Negative) Ur Leukocyte Esterase Small H (Negative) Urine RBC 51 H (0-5) /hpf Hyaline Casts 3 H (0-2) /lpf Urine Mucus Few H (None) /hpf Diabetes panel 04/12/20 Range/Units 12:48 Sodium 136 L (137-145) mmol/L Potassium 4.0 (3.5-5.1) mmol/L Chloride 112 H (98-107) mmol/L Carbon Dioxide 19 L (22-30) mmol/L BUN 12 (7-17) mg/dL Creatinine 0.57 (0.52-1.04) mg/dL Glucose 92 (74-99) mg/dL Calcium 8.5 (8.4-10.2) mg/dL AST 24 (14-36) U/L ALT 15 (4-34) U/L Alkaline Phosphatase 111 (38-126) U/L Total Protein 6.1 L (6.3-8.2) g/dL Albumin 3.3 L (3.5-5.0) g/dL Calcium panel 04/12/20 Range/Units 12:48 Calcium 8.5 (8.4-10.2) mg/dL Albumin 3.3 L (3.5-5.0) g/dL Pituitary panel 04/12/20 Range/Units 12:48 Sodium 136 L (137-145) mmol/L Potassium 4.0 (3.5-5.1) mmol/L Chloride 112 H (98-107) mmol/L Carbon Dioxide 19 L (22-30) mmol/L BUN 12 (7-17) mg/dL Creatinine 0.57 (0.52-1.04) mg/dL Glucose 92 (74-99) mg/dL Calcium 8.5 (8.4-10.2) mg/dL Adrenal panel 04/12/20 Range/Units 12:48 Sodium 136 L (137-145) mmol/L Potassium 4.0 (3.5-5.1) mmol/L Chloride 112 H (98-107) mmol/L Carbon Dioxide 19 L (22-30) mmol/L BUN 12 (7-17) mg/dL Creatinine 0.57 (0.52-1.04) mg/dL Glucose 92 (74-99) mg/dL Calcium 8.5 (8.4-10.2) mg/dL Total Bilirubin 0.5 (0.2-1.3) mg/dL AST 24 (14-36) U/L ALT 15 (4-34) U/L Alkaline Phosphatase 111 (38-126) U/L Total Protein 6.1 L (6.3-8.2) g/dL Albumin 3.3 L (3.5-5.0) g/dL - Imaging CT scan - abdomen: image reviewed (CT from [facility] and demonstrated 1 cm right lower pole stone, evidence of polycystic kidney disease) US - kidney/bladder: report reviewed Assessment and Plan Assessment: 19-year-old female that is 35 weeks , admitted with right flank pain. Renal bladder ultrasound of his ureteral 1 cm right lower pole stone without hydronephrosis. Given her and the lack of hydronephrosis on renal bladder ultrasound I do not recommend any surgical intervention for her kidney stones at this time. Plan: -pain control -F/U in urology clinic after delivery, will set up patient with surgical intervention for her stone after she delivers.
== END 2020-04-13 17:23 | disposition home or self-care (01) ==
LOC: FBPOP 12:10 → 4FBP 16:56
PROVIDERS: ADMIT Obstetrics & Gynecology; ATTEND Obstetrics & Gynecology
DX: N20.0 Calculus of kidney (principal); O26.833 Pregnancy related renal disease, third trimester; F17.200 Nicotine dependence, unspecified, uncomplicated; O99.333 Smoking (tobacco) complicating pregnancy, third trimester; Q61.3 Polycystic kidney, unspecified; Z3A.35 35 weeks gestation of pregnancy; Z82.71 Family history of polycystic kidney
CPT/HCPCS: 59025; 96376 ×2; 96361; 96372; 96374; 96375; 82731; 80053; 85025; 81001; 76770; G0463; G0378; J0595 ×2; J0131; J1170; 99214

== ENCOUNTER 2020-05-03 15:37 | Outpatient (CLI) | payer SELFPAY ==
[2020-05-03 18:25] VITALS: BP 138/77; PULSE 78; RESP 16; TEMP 98
--- NOTE | 2020-05-10 13:29 | P.MSEPDOC ---
Presenting Problems - Arrival Data Date of Arrival on Unit: 05/03/20 Time of Arrival on Unit: 15:37 Mode of Transport: Ambulatory - Complaint OB-Reason for Admission/Chief Complaint: Possible Onset of Labor Comment: contractions every 5 mins, vaginal pressure, and bloody mucus Medical History - Information : 3 Para: 1 Term: 1 : 0 Abortions: Spontaneous or Elective: 1 Number of Living Children: 1 - Gestational Age Gestational Age by JUAN (wks/days): 37 Weeks and 6 Days - History Complications: Smoker Comment: marijuana use Review of Systems - Review of Systems Constitutional: No problems Breast: No problems ENT: No problems Cardiovascular: No problems Respiratory: No problems Gastrointestinal: No problems Genitourinary: No problems Musculoskeletal: No problems Neurological: No problems Skin: No problems Vital Signs - Temperature Temperature: 98.0 F Temperature Source: Temporal Artery Scan - Pulse Pulse Oximetery Pulse Rate: 78 Pulse Assessment Method: Pulse Oximetry - Respirations Respiratory Rate: 16 Oxygen Delivery Method: Room Air - Blood Pressure Right Arm Blood Pressure: 138/77 Blood Pressure Mean: 97 Blood Pressure Source: Automatic Cuff Medical Screen Scoring (Pre) - Cervical Exam Dilation: 1-3 cm = 1 Effacement: More than 50% = 2 Membranes: Intact - Uterine Contractions Frequency: > 5 minutes apart = 1 Duration: > 40 seconds = 2 Intensity: N/A - Maternal Vital Signs Maternal Temperature: N/A Maternal Blood Pressure: N/A Signs of Preeclampsia: N/A Maternal Respirations: N/A - Maternal Trauma Maternal Trauma: N/A - Assessment - Baby A Baseline FHR: 125 Heart Rate - NICHD Category: Category II (Indeterminate) = 3 NST: Reactive Position: N/A Station: N/A - Total Score - Baby A Total Score - Baby A: 9 - Total Score - Baby B Total Score - Baby B: 6 - Total Score - Baby C Total Score - Baby C: 6 - Level of Risk - Baby A Level of Risk - Baby A: Medium (6-9) - Level of Risk - Baby B Level of Risk - Baby B: Medium (6-9) - Level of Risk - Baby C Level of Risk - Baby C: Medium (6-9) Physician Notification (Pre) - Physician Notified Physician Notified Date: 05/03/20 Physician Notified Time: 16:10 New Order Received: Yes - Notification Comment Comment: [id number] - Dr. Engle on unit, report given on maternal and status, SVE 2.5/-1,. pt is a repeat c/s. Orders to watch pt and recheck cervix after another pt is done being. sectioned. Dr. Banda is front end java developer and Dr. Engle will notify her of this pt. [id number] - Dr. Banda on unit and notified of SVE 3.5//-1 cervix soft and centered, pt. has been her for about 2 hours, first SVE (2.5/-1 cervix to the left) was a difficult. check so pt may not have made as much change as it seems. Contractions are irregular and. pt does not seem to be in much pain with them. Dr. Banda in room talking with pt. Orders to discharge pt home. Disposition - Disposition OB Disposition: Discharge to home Discharge Date: 05/03/20 Discharge Time: 17:50 I agree with the RN Medical Screening Exam: Yes Risk & Benefit of care provided described in d/c instruction: Yes Diagnosis: FALSE LABOR AT OR AFTER 37 COMPLETED WEEKS OF GESTATION
== END 2020-05-03 17:50 | disposition home or self-care (01) ==
LOC: FBPOP 15:37
PROVIDERS: ATTEND Obstetrics & Gynecology
DX: O47.1 False labor at or after 37 completed weeks of gestation (principal); O99.333 Smoking (tobacco) complicating pregnancy, third trimester; F12.90 Cannabis use, unspecified, uncomplicated; Z3A.37 37 weeks gestation of pregnancy
CPT/HCPCS: 59025; 99213

== ENCOUNTER 2020-05-04 01:03 | Inpatient (IN) | payer OTHER ==
[2020-05-04] MEDS ORDERED: LACTATED RINGERS 1,000 ML IV ONE (01:22)
[2020-05-04] MEDS ORDERED: CITRIC ACID-SODIUM CITRATE 15 ML CUP PO ONE (01:22)
[2020-05-04] MEDS ORDERED: CLINDAMYCIN 900 MG in DEXTROSE 5% IN WATER 50 ML IVPB ONE ×2 (01:30)
[2020-05-04] MEDS ORDERED: GENTAMICIN 300 MG in SODIUM CHLORIDE 0.9% 100 ML IVPB ONE (01:30)
[2020-05-04] MEDS ORDERED: MORPHINE SULFATE (PF) 0.3 MG/0.3 ML SYR ONE (01:34)
[2020-05-04] MEDS ORDERED: fentaNYL (PF) 50 MCG/ML 2 ML AMP ONE (01:34)
[2020-05-04] MEDS ORDERED: ONDANSETRON 4 MG/2 ML VIAL ONE (01:34)
[2020-05-04] MEDS ORDERED: OXYTOCIN 10 UNIT/ML 1 ML VIAL ONE (01:34)
[2020-05-04] MEDS ORDERED: KETOROLAC 15 MG/ML 1 ML VIAL ONE (01:34)
[2020-05-04 01:45] LABS: Basophils # (A) 0.1 k/uL (0-0.2); Basophils % (A) 1 %; Eosinophils # (A) 0.1 k/uL (0-0.7); Eosinophils % (A) 0 %; HCT 43.6 % (34.0-46.0); HGB 14.8 gm/dL (11.4-16.0); Lymphocytes # (A) 2.7 k/uL (1.0-4.8); Lymphocytes % (A) 17 %; MCH 31.2 pg (25.0-35.0); MCHC 33.9 g/dL (31.0-37.0); MCV 91.9 fL (80.0-100.0); Mean Platelet Volume 9.2; Monocytes # (A) 0.8 k/uL (0-1.0); Monocytes % (A) 5 %; Neutrophils # (A) 11.6 k/uL (1.3-7.7); Neutrophils % (A) 75 %; Platelet Count 243 k/uL (150-450); RBC 4.74 m/uL (3.80-5.40); RDW 12.8 % (11.5-15.5); WBC 15.6 k/uL (3.8-10.6)
[2020-05-04] MEDS ORDERED: MORPHINE SULFATE 2 MG/ML SYRINGE IVP PRN (02:05)
[2020-05-04] MEDS ORDERED: diphenhydrAMINE 50 MG/ML 1 ML VIAL IVP PRN ×3 (02:05→02:28)
[2020-05-04] MEDS ORDERED: NALOXONE 0.4 MG/ML 1 ML VIAL IV PRN ×2 (02:05→02:28)
[2020-05-04] MEDS ORDERED: ONDANSETRON 4 MG/2 ML VIAL IVP PRN ×2 (02:05→02:28)
[2020-05-04] MEDS ORDERED: diphenhydrAMINE 50 MG CAP PO PRN (02:28)
[2020-05-04] MEDS ORDERED: diphenhydrAMINE 25 MG CAP PO PRN (02:28)
[2020-05-04] MEDS ORDERED: ZOLPIDEM 5 MG TAB PO PRN (02:28)
[2020-05-04] MEDS ORDERED: METOCLOPRAMIDE 5 MG/ML 2 ML VIAL IVP PRN (02:28)
[2020-05-04] MEDS ORDERED: HYDROcodone/APAP 7.5-325MG 1 EACH TAB PO PRN (02:28)
--- NOTE | 2020-05-04 02:31 | P.HPOB ---
History of Present Illness H&P Date: 05/04/20 Chief Complaint: : Active labor: Prior section Pat is a 19-year-old at 38 weeks gestation arise in active labor. She was seen earlier this afternoon in labor and delivery and noted to be 2-1/2 cm. Over approximately 2 hour timeframe she was reevaluated and made no cervical change with irregular contractions. She was sent home and relates that she fell sleep for about an hour or 2 and contractions got much closer together much stronger and she returned approximately 1 AM. She was dilated to 6 cm at that time and a section was immediately ordered. Risks and benefits of the section had Salazar been reviewed with the patient and all questions were answered for her at the time of surgery. She is also having tube ligation done for family planning. This was all verified with her prior to initiation of the surgery. Her course has been complicated by a number of factors. The most significant factor has been renal lithiasis for which she is been admitted to the hospital several times due to pain control and she is been on Tylenol 3 intermittently through the latter stages of Precis due to same. She also has a history of polycystic kidney disease but her kidney function has remained normal throughout the and she is seen both nephrology and urology. At this time she is relating limited pain and she feels well. In fact, over the last 2 weeks she has not had any significant symptoms other than she did relate she passed some small stones about a week and half ago. A category 1 tracing is noted on the monitor. Past Medical History Past Medical History: Renal Disease Additional Past Medical History / Comment(s): polycystic kidney disease History of Any Multi-Drug Resistant Organisms: None Reported Past Surgical History: Section, Cholecystectomy Past Anesthesia/Blood Transfusion Reactions: No Reported Reaction Smoking Status: Current every day smoker - Past Family History Sister(s) Family Medical History: No Reported History Additional Family Medical History / Comment(s): polycystic kidney disease, adhd Medications and Allergies Home Medications Medication Instructions Recorded Confirmed Type Ondansetron Odt [Zofran Odt] 4 mg PO Q8HR PRN 10 Days #30 tab 03/20/20 05/04/20 Rx Allergies Allergy/AdvReac Type Severity Reaction Status Date / Time ampicillin [From Unasyn] Allergy Mild Rash/Hives Verified 05/03/20 15:44 sulbactam [From Unasyn] Allergy Mild Rash/Hives Verified 05/03/20 15:44 Exam Osteopathic Statement: *. No significant issues noted on an osteopathic structural exam other than those noted in the History and Physical/Consult. Intake and Output 05/03/20 05/03/20 05/04/20 14:59 22:59 06:59 Other: Weight 70.307 kg - OBG Physical Exam Breast: both: normal (no masses) Abdomen: bowel sounds normal, no diffuse tenderness, no bruit present, no guarding noted, no hepatomegaly, no splenomegaly, no mass Vulva: both: normal Vagina: normal moisture, no discharge Cervix: no lesion, no discharge Uterus: normal size, normal contour Adnexa: both: normal Anus/Rectum: normal perianal skin, no rectal mass, no hemorrhoids, heme negative Results Result Diagrams: 05/04/20 01:20 Abnormal Lab Results - Last 24 Hours (Table) 05/04/20 Range/Units 01:20 WBC 15.6 H (3.8-10.6) k/uL Neutrophils # 11.6 H (1.3-7.7) k/uL
--- NOTE | 2020-05-04 02:35 | P.OP ---
Date of Procedure: 05/04/20 Preoperative Diagnosis: Intrauterine at term: Active labor: Prior section: Family planning Postoperative Diagnosis: Same Procedure(s) Performed: Repeat low transverse section with bilateral tubal occlusion Filshie clips Anesthesia: spinal Surgeon: Marky Engle [employer] Operator #1: Petra Sharif Estimated Blood Loss (ml): 200 IV fluids (ml): 1,000 Urine output (ml): 50 Pathology: other (Placenta) Condition: stable Disposition: floor Operative Findings: Female weight was 6 pounds scores chart at this time Description of Procedure: Patient was taken to the operating suite where a spinal anesthetic was found be adequate. She was prepped and draped in normal sterile fashion placed in dorsal supine position with leftward tilt. Initially a Pfannenstiel skin incision was made and this incision was then carried through to underlying layer of the fashion with a second knife. Fascia was then nicked in the midline and this opening was extended laterally with White scissors. Superior and inferior aspect of this incision were then grasped tented up and bluntly and sharply dissected off the rectus muscles. Rectus muscles were then divided the midline and blunt dissection through the peritoneum was performed. Once this was completed Metzenbaum scissors was used to extend the incision superiorly and inferiorly with good visualization of both bowel bladder. Bladder blade was then placed and a bladder flap identified. It was entered with the Metzenbaum scissors and carried across face uterus. Bladder was then bluntly dissected out of the operative field and a knife was used to incise the uterus. This incision was fully developed with hemostat and extended bluntly. Head was then H medically delivered mouth nares bulb suctioned and the anterior posterior shoulders easily delivered followed by the remainder the baby. Umbilical cord was clamped cut usual fashion an nursery personnel was present and assumed care. Placenta was then delivered intact and Pitocin was added to the IV. Uterus was then exteriorized cleared of clots and debris and closed in 1 layer with 0 Vicryl suture. Once excellent hemostasis was obtained what and debris was suctioned from the posterior cul-de-sac and Filshie clips were placed 2 cm from uterine cornu. No bleeding is noted in the mesosalpinx therefore uterus was reinserted into the abdomen and peritoneal layer was closed with 0 Vicryl suture. Fascial layer was then closed with 0 Vicryl suture. One layer of 3-0 Vicryl was placed in deep subcuticular tissues reapproximate skin and close space. Then was then closed with 4-0 Vicryl subcuticular. Sponge, lap, needle counts were all correct 2. Patient was then taken to the recovery room in stable and satisfactory condition.
[2020-05-04] MEDS: LACTATED RINGERS 1,000 ML IV SCH ×4 (03:33→19:50)
[2020-05-04] MEDS: SENNOSIDES-DOCUSATE SODIUM 1 EACH TAB PO SCH ×2 (08:06→20:13)
--- NOTE | 2020-05-04 08:17 | P.PN ---
Progress Note - Text Progress Note Date: 05/04/20 (564) Anesthesia Postop day 1 Subjective: Status Post with Duramorph. Patient seen and examined. Doing well without complaint. VAS 0. No nausea or vomiting. Mild pruritus tolerable.. Afebrile. Gross lower extremity strength intact. Spinal site intact without induration. Without apparent anesthetic complications. Objective: Vital signs reviewed Heart: Regular Rate Lungs: Good chest excursion Abdomen: Appears nondistended Assessment: Status post with Duramorph postop day 1 Plan: Continue current care with your medical management. Answered all questions
[2020-05-04] MEDS: KETOROLAC 15 MG/ML 1 ML VIAL IVP PRN ×3 (08:25→20:12)
[2020-05-04] MEDS: ACETAMINOPHEN TAB 325 MG TAB PO PRN (12:54)
[2020-05-05] MEDS: ACETAMINOPHEN TAB 325 MG TAB PO PRN ×3 (00:21→23:21)
[2020-05-05] MEDS: KETOROLAC 15 MG/ML 1 ML VIAL IVP PRN (02:32)
[2020-05-05] MEDS: IBUPROFEN 600 MG TAB PO PRN ×3 (08:22→22:16)
[2020-05-05 08:55] LABS: Basophils # (A) 0.1 k/uL (0-0.2); Basophils % (A) 1 %; Eosinophils # (A) 0.1 k/uL (0-0.7); Eosinophils % (A) 1 %; HCT 36.8 % (34.0-46.0); HGB 12.5 gm/dL (11.4-16.0); Lymphocytes # (A) 2.5 k/uL (1.0-4.8); Lymphocytes % (A) 22 %; MCH 31.2 pg (25.0-35.0); MCHC 33.9 g/dL (31.0-37.0); MCV 91.9 fL (80.0-100.0); Mean Platelet Volume 9.1; Monocytes # (A) 0.5 k/uL (0-1.0); Monocytes % (A) 4 %; Neutrophils # (A) 7.9 k/uL (1.3-7.7); Neutrophils % (A) 70 %; Platelet Count 189 k/uL (150-450); WBC 11.3 k/uL (3.8-10.6)
[2020-05-05] MEDS: SENNOSIDES-DOCUSATE SODIUM 1 EACH TAB PO SCH ×2 (09:15→20:08)
[2020-05-06 01:04] VITALS: TEMP 98.2
[2020-05-06] MEDS: IBUPROFEN 600 MG TAB PO PRN (08:16)
--- NOTE | 2020-05-06 09:18 | P.PNOBGPC ---
Subjective - Subjective Principal diagnosis: S/P C/S POD #2 Interval history: Patient seen and examined. Denies nausea, vomiting, chest pain, shortness of breath or any calf pain. Patient reports: Reports appetite normal, Reports voiding normally, Reports pain well controlled, Reports ambulating normally : doing well Objective - Vital Signs Latest vital signs: Vital Signs Temp Pulse Resp BP Pulse Ox 05/05/20 23:45 98.2 F 71 18 142/83 98 05/05/20 16:00 99.1 F 72 16 129/83 98 Intake and Output 05/05/20 05/06/20 05/06/20 22:59 06:59 14:59 Other: # Voids 1 1 # Bowel Movements 1 - Exam Lungs: bilateral: normal Chest: Normal S1, Normal S2 Extremities: Present: normal Abdomen: Present: normal appearance, soft. Absent: distention, tenderness Incision: Present: normal, dry, intact Uterus: Present: normal, firm Assessment and Plan (1) Status post repeat low transverse section Current Visit: Yes Status: Acute Code(s): Z98.891 - HISTORY OF UTERINE SCAR FROM PREVIOUS SURGERY SNOMED Code(s): 316092208 Plan: 1. Increase ambulation
--- NOTE | 2020-05-06 09:21 | P.DS ---
Providers Date of admission: 05/04/20 01:33 Expected date of discharge: 05/06/20 Attending physician: Marky Engle Primary care physician: Stated None - Discharge Diagnosis(es) (1) Status post repeat low transverse section Current Visit: Yes Status: Acute Hospital Course: Patient presented for repeat low transverse . She underwent this procedure without complication. She'll be discharged home postoperative day #2 in stable condition to follow-up with Dr. Voss in 1 week. Plan - Discharge Summary New Discharge Prescriptions: New Ibuprofen [Motrin] 600 mg PO Q6HR PRN #30 tab PRN Reason: Mild Pain Or Fever >= 100.5 HYDROcodone/APAP 7.5-325MG [[place] 7.5-325] 1 each PO Q6H PRN #12 tab PRN Reason: Severe Pain No Action Ondansetron Odt [Zofran Odt] 4 mg PO Q8HR PRN 10 Days #30 tab PRN Reason: Nausea Discharge Medication List Ondansetron Odt [Zofran Odt] 4 mg PO Q8HR PRN 10 Days #30 tab 03/20/20 [Rx] HYDROcodone/APAP 7.5-325MG [[place] 7.5-325] 1 each PO Q6H PRN #12 tab 05/06/20 [Rx] Ibuprofen [Motrin] 600 mg PO Q6HR PRN #30 tab 05/06/20 [Rx] Follow up Appointment(s)/Referral(s): Marky Engle DO [Doctor of Osteopathic Medicine] - 1 Week Discharge Disposition: HOME SELF-CARE
[2020-05-06 09:30] VITALS: BP 137/80; PULSE 65; RESP 17
[2020-05-06] MEDS: SENNOSIDES-DOCUSATE SODIUM 1 EACH TAB PO SCH (09:31)
== END 2020-05-06 10:50 | disposition home or self-care (01) | DRG 784 ==
LOC: FBPOP 01:03 → 4FBP 01:33
PROVIDERS: ADMIT Obstetrics & Gynecology; ATTEND Obstetrics & Gynecology
PROC: 0UL70CZ Occlusion of Bilateral Fallopian Tubes with Extraluminal Device, Open Approach (ICD-10-PCS; principal; 2020-05-04 01:40)
PROC: 10D00Z1 Extraction of Products of Conception, Low, Open Approach (ICD-10-PCS; principal; 2020-05-04 01:40)
DX: O34.211 Maternal care for low transverse scar from previous cesarean delivery (principal); Q61.3 Polycystic kidney, unspecified; Z37.0 Single live birth; O99.334 Smoking (tobacco) complicating childbirth; F17.200 Nicotine dependence, unspecified, uncomplicated; O99.892 Other specified diseases and conditions complicating childbirth; L29.9 Pruritus, unspecified; Z82.71 Family history of polycystic kidney; Z30.2 Encounter for sterilization; Z3A.38 38 weeks gestation of pregnancy; Z90.49 Acquired absence of other specified parts of digestive tract; Z81.8 Family history of other mental and behavioral disorders; Z88.0 Allergy status to penicillin; Z88.1 Allergy status to other antibiotic agents
CPT/HCPCS: 59025; 85025; 86850; 86900; 86901; 99213

== ENCOUNTER 2021-10-12 16:45 | Inpatient (IN) | payer OTHER ==
[2021-10-12] MEDS ORDERED: ACETAMINOPHEN TAB 325 MG TAB PO STA (18:07)
[2021-10-12] MEDS ORDERED: ONDANSETRON 4 MG/2 ML VIAL IVP STA (18:08)
[2021-10-12] MEDS ORDERED: MORPHINE SULFATE 4 MG/ML SYRINGE IV STA (18:08)
--- NOTE | 2021-10-12 18:14 | ED ---
Abdominal Pain HPI - General Source: patient, RN notes reviewed Mode of arrival: wheelchair Limitations: no limitations <David Marte - Last Filed: 10/12/21 21:19> <Megan Johnson - Last Filed: 10/14/21 16:52> - General Chief Complaint: Abdominal Pain Stated Complaint: Kidney Pain Time Seen by Provider: 10/12/21 17:58 - History of Present Illness Initial Comments: This is a pleasant 21-year-old female with a history of polycystic kidney disease. Patient presents as a primary complaint of left flank pain was a been going on for several days. Patient was seen at [facility] last week and had a workup. Patient was put on antibiotics. Patient states that the pain is actually getting worse. Patient was told she had a kidney infection. Patient had a follow-up appointment today at [facility] with a urologist. She states she did not get many answers and was referred to a alcohol law enforcement agent. Patient also complaining of vomiting. Shaking chills. And fever. Patient states she has 3 days left on her antibiotic. She is unsure what antibiotic she is on. His hematuria. Denies vaginal discharge .No headache, no changes in vision or hearing, no sore throat or difficulty with speech, no neck pain, no chest pain or shortness of breath, no abdominal pain, no changes in urination or bowel movements, no numbness or tingling, no extremity pain, no skin rashes or lesions. (David Marte) - Related Data Home Medications Medication Instructions Recorded Confirmed Cephalexin [Keflex] 500 mg PO BID 10/12/21 10/12/21 Famotidine [Pepcid] 20 mg PO BID 10/12/21 10/12/21 HYDROcodone/APAP 5-325MG [Parachute 1 tab PO TID PRN 10/12/21 10/12/21 5-325] Ibuprofen [Motrin] 600 mg PO Q8HR PRN 10/12/21 10/12/21 Ondansetron Odt [Zofran ODT] 4 mg PO Q8H PRN 10/12/21 10/12/21 traMADol HCL 50 mg PO QID PRN 10/12/21 10/12/21 Allergies Allergy/AdvReac Type Severity Reaction Status Date / Time ampicillin [From Unasyn] Allergy Mild Rash/Hives Verified 10/13/21 09:46 sulbactam [From Unasyn] Allergy Mild Rash/Hives Verified 10/13/21 09:46 Review of Systems ROS Other: All systems not noted in ROS Statement are negative. <David Marte - Last Filed: 10/12/21 21:19> ROS Other: All systems not noted in ROS Statement are negative. <Megan Johnson - Last Filed: 10/14/21 16:52> ROS Statement: Those systems with pertinent positive or pertinent negative responses have been documented in the HPI. Past Medical History Past Medical History: Renal Disease Additional Past Medical History / Comment(s): polycystic kidney disease History of Any Multi-Drug Resistant Organisms: None Reported Past Surgical History: Section, Cholecystectomy Past Anesthesia/Blood Transfusion Reactions: No Reported Reaction Past Psychological History: ADD/ADHD, Anxiety Smoking Status: Current every day smoker Past Alcohol Use History: None Reported Past Drug Use History: None Reported - Past Family History Sister(s) Family Medical History: No Reported History Additional Family Medical History / Comment(s): polycystic kidney disease, adhd <David Marte - Last Filed: 10/12/21 21:19> General Exam Limitations: no limitations General appearance: alert, in distress Head exam: Present: atraumatic, normocephalic, normal inspection Eye exam: Present: normal appearance, PERRL, EOMI. Absent: scleral icterus, conjunctival injection, periorbital swelling ENT exam: Present: normal exam, mucous membranes moist Neck exam: Present: normal inspection. Absent: tenderness, meningismus, lymphadenopathy Respiratory exam: Present: normal lung sounds bilaterally. Absent: respiratory distress, wheezes, rales, rhonchi, stridor Cardiovascular Exam: Present: regular rate, normal rhythm, normal heart sounds. Absent: systolic murmur, diastolic murmur, rubs, gallop, clicks GI/Abdominal exam: Present: soft, normal bowel sounds. Absent: distended, tenderness, guarding, rebound, rigid Extremities exam: Present: normal inspection, full ROM, normal capillary refill. Absent: tenderness, pedal edema, joint swelling, calf tenderness Back exam: Present: normal inspection, CVA tenderness (L). Absent: full ROM, CVA tenderness (R) Neurological exam: Present: alert, oriented X3, CN II-XII intact Psychiatric exam: Present: normal affect, normal mood Skin exam: Present: warm, dry, intact, normal color. Absent: rash <David Marte - Last Filed: 10/12/21 21:19> - General Exam Comments Initial Comments: Healthy-appearing 21-year-old in moderate distress. Patient does not appear to be ill or toxic. Left CVA tenderness. Cranial nerves II through XII grossly intact. Capillary refill less than 2 seconds. (David Marte) Course <David Marte - Last Filed: 10/12/21 21:19> Vital Signs 10/12/21 10/12/21 10/12/21 17:02 20:37 23:00 Temperature 99.8 F H Pulse Rate 106 H 81 70 Respiratory 20 16 16 Rate Blood Pressure 150/93 126/74 128/79 O2 Sat by Pulse 99 98 98 Oximetry 10/13/21 10/13/21 02:42 06:35 Temperature 98 F Pulse Rate 82 85 Respiratory 16 16 Rate Blood Pressure 121/78 124/71 O2 Sat by Pulse 98 98 Oximetry - Reevaluation(s) Reevaluation #1: 10/12/21 21:05 Patient reevaluated and is not improved. Unchanged. (David Marte) Medical Decision Making - Lab Data Result diagrams: 10/12/21 18:45 10/12/21 18:45 <David Marte - Last Filed: 10/12/21 21:19> - Lab Data Result diagrams: 10/13/21 07:32 10/13/21 07:32 <Megan Johnson - Last Filed: 10/14/21 16:52> - Medical Decision Making Patient presents with left flank pain. Differential includes ureteral stone, urinary tract infection, septic stone. Other inflammatory versus infectious etiology possible. Given the patient's recurrent recalcitrant symptomology, going to start her on antibiotics empirically for an upper urinary tract infection. Going to obtain a CT abdomen and pelvis with IV contrast given the complicated nature of the patient's complaints and likely outpatient treatment failure with antibiotics. Patient's computed tomography scan from [facility] says possible hemorrhagic renal cyst. Patient's urine was clear here. However the patient had significant pain and reevaluation. I'm going to place the patient in observation under medicine. We'll consult urology. Patient did have splint or megaly which is essentially chronic in appearance. However did add on a Monospot. The case was discussed in detail with ED attending physician. Presentation, findings, treatment plan discussed in detail. Dr. Johnson ([facility]) - Lab Data Lab Results 10/12/21 10/12/21 10/12/21 Range/Units 18:45 18:45 18:45 WBC 11.8 H (3.8-10.6) k/uL RBC 5.01 (3.80-5.40) m/uL Hgb 14.7 (11.4-16.0) gm/dL Hct 45.9 (34.0-46.0) % MCV 91.6 (80.0-100.0) fL MCH 29.4 (25.0-35.0) pg MCHC 32.1 (31.0-37.0) g/dL RDW 13.1 (11.5-15.5) % Plt Count 271 (150-450) k/uL MPV 8.1 Neutrophils % 77 % Lymphocytes % 12 % Monocytes % 8 % Eosinophils % 1 % Basophils % 1 % Neutrophils # 9.0 H (1.3-7.7) k/uL Lymphocytes # 1.4 (1.0-4.8) k/uL Monocytes # 0.9 (0-1.0) k/uL Eosinophils # 0.2 (0-0.7) k/uL Basophils # 0.1 (0-0.2) k/uL Sodium 139 (137-145) mmol/L Potassium 4.0 (3.5-5.1) mmol/L Chloride 99 (98-107) mmol/L Carbon Dioxide 32 H (22-30) mmol/L Anion Gap 8 mmol/L BUN 12 (7-17) mg/dL Creatinine 0.68 (0.52-1.04) mg/dL Est GFR (CKD-EPI)AfAm >90 (>60 ml/min/1.73 sqM) Est GFR (CKD-EPI)NonAf >90 (>60 ml/min/1.73 sqM) Glucose 95 (74-99) mg/dL Plasma Lactic Acid Alber 1.0 (0.7-2.0) mmol/L Calcium 9.7 (8.4-10.2) mg/dL Total Bilirubin 0.6 (0.2-1.3) mg/dL AST 48 H (14-36) U/L ALT 69 H (4-34) U/L Alkaline Phosphatase 75 (38-126) U/L Total Protein 8.0 (6.3-8.2) g/dL Albumin 4.5 (3.5-5.0) g/dL Urine Color Urine Appearance (Clear) Urine pH (5.0-8.0) Ur Specific [place] (1.001-1.035) Urine Protein (Negative) Urine Glucose (UA) (Negative) Urine Ketones (Negative) Urine Blood (Negative) Urine Nitrite (Negative) Urine Bilirubin (Negative) Urine Urobilinogen (<2.0) mg/dL Ur Leukocyte Esterase (Negative) Urine HCG, Qual (Not Detectd) Urine Opiates Screen (NotDetected) Ur Oxycodone Screen (NotDetected) Urine Methadone Screen (NotDetected) Ur Propoxyphene Screen (NotDetected) Ur Barbiturates Screen (NotDetected) U Tricyclic Antidepress (NotDetected) Ur Phencyclidine Scrn (NotDetected) Ur Amphetamines Screen (NotDetected) U Methamphetamines Scrn (NotDetected) U Benzodiazepines Scrn (NotDetected) Urine Cocaine Screen (NotDetected) U Marijuana (THC) Screen (NotDetected) Heterophile Antibody (Negative) 10/12/21 10/12/21 10/12/21 Range/Units 18:45 18:58 18:58 WBC (3.8-10.6) k/uL RBC (3.80-5.40) m/uL Hgb (11.4-16.0) gm/dL Hct (34.0-46.0) % MCV (80.0-100.0) fL MCH (25.0-35.0) pg MCHC (31.0-37.0) g/dL RDW (11.5-15.5) % Plt Count (150-450) k/uL MPV Neutrophils % % Lymphocytes % % Monocytes % % Eosinophils % % Basophils % % Neutrophils # (1.3-7.7) k/uL Lymphocytes # (1.0-4.8) k/uL Monocytes # (0-1.0) k/uL Eosinophils # (0-0.7) k/uL Basophils # (0-0.2) k/uL Sodium (137-145) mmol/L Potassium (3.5-5.1) mmol/L Chloride (98-107) mmol/L Carbon Dioxide (22-30) mmol/L Anion Gap mmol/L BUN (7-17) mg/dL Creatinine (0.52-1.04) mg/dL Est GFR (CKD-EPI)AfAm (>60 ml/min/1.73 sqM) Est GFR (CKD-EPI)NonAf (>60 ml/min/1.73 sqM) Glucose (74-99) mg/dL Plasma Lactic Acid Alber (0.7-2.0) mmol/L Calcium (8.4-10.2) mg/dL Total Bilirubin (0.2-1.3) mg/dL AST (14-36) U/L ALT (4-34) U/L Alkaline Phosphatase (38-126) U/L Total Protein (6.3-8.2) g/dL Albumin (3.5-5.0) g/dL Urine Color Light Yellow Urine Appearance Clear (Clear) Urine pH 6.0 (5.0-8.0) Ur Specific [place] 1.014 (1.001-1.035) Urine Protein Negative (Negative) Urine Glucose (UA) Negative (Negative) Urine Ketones Negative (Negative) Urine Blood Negative (Negative) Urine Nitrite Negative (Negative) Urine Bilirubin Negative (Negative) Urine Urobilinogen <2.0 (<2.0) mg/dL Ur Leukocyte Esterase Negative (Negative) Urine HCG, Qual Not Detected (Not Detectd) Urine Opiates Screen (NotDetected) Ur Oxycodone Screen (NotDetected) Urine Methadone Screen (NotDetected) Ur Propoxyphene Screen (NotDetected) Ur Barbiturates Screen (NotDetected) U Tricyclic Antidepress (NotDetected) Ur Phencyclidine Scrn (NotDetected) Ur Amphetamines Screen (NotDetected) U Methamphetamines Scrn (NotDetected) U Benzodiazepines Scrn (NotDetected) Urine Cocaine Screen (NotDetected) U Marijuana (THC) Screen (NotDetected) Heterophile Antibody Negative (Negative) 10/12/21 Range/Units 18:58 WBC (3.8-10.6) k/uL RBC (3.80-5.40) m/uL Hgb (11.4-16.0) gm/dL Hct (34.0-46.0) % MCV (80.0-100.0) fL MCH (25.0-35.0) pg MCHC (31.0-37.0) g/dL RDW (11.5-15.5) % Plt Count (150-450) k/uL MPV Neutrophils % % Lymphocytes % % Monocytes % % Eosinophils % % Basophils % % Neutrophils # (1.3-7.7) k/uL Lymphocytes # (1.0-4.8) k/uL Monocytes # (0-1.0) k/uL Eosinophils # (0-0.7) k/uL Basophils # (0-0.2) k/uL Sodium (137-145) mmol/L Potassium (3.5-5.1) mmol/L Chloride (98-107) mmol/L Carbon Dioxide (22-30) mmol/L Anion Gap mmol/L BUN (7-17) mg/dL Creatinine (0.52-1.04) mg/dL Est GFR (CKD-EPI)AfAm (>60 ml/min/1.73 sqM) Est GFR (CKD-EPI)NonAf (>60 ml/min/1.73 sqM) Glucose (74-99) mg/dL Plasma Lactic Acid Alber (0.7-2.0) mmol/L Calcium (8.4-10.2) mg/dL Total Bilirubin (0.2-1.3) mg/dL AST (14-36) U/L ALT (4-34) U/L Alkaline Phosphatase (38-126) U/L Total Protein (6.3-8.2) g/dL Albumin (3.5-5.0) g/dL Urine Color Urine Appearance (Clear) Urine pH (5.0-8.0) Ur Specific [place] (1.001-1.035) Urine Protein (Negative) Urine Glucose (UA) (Negative) Urine Ketones (Negative) Urine Blood (Negative) Urine Nitrite (Negative) Urine Bilirubin (Negative) Urine Urobilinogen (<2.0) mg/dL Ur Leukocyte Esterase (Negative) Urine HCG, Qual (Not Detectd) Urine Opiates Screen Detected H (NotDetected) Ur Oxycodone Screen Not Detected (NotDetected) Urine Methadone Screen Not Detected (NotDetected) Ur Propoxyphene Screen Not Detected (NotDetected) Ur Barbiturates Screen Not Detected (NotDetected) U Tricyclic Antidepress Not Detected (NotDetected) Ur Phencyclidine Scrn Not Detected (NotDetected) Ur Amphetamines Screen Not Detected (NotDetected) U Methamphetamines Scrn Not Detected (NotDetected) U Benzodiazepines Scrn Not Detected (NotDetected) Urine Cocaine Screen Not Detected (NotDetected) U Marijuana (THC) Screen Detected H (NotDetected) Heterophile Antibody (Negative) Disposition Time of Disposition: 21:04 Decision to Admit Reason: Admit from EC <David Marte - Last Filed: 10/12/21 21:19> <Megan Johnson - Last Filed: 10/14/21 16:52> Clinical Impression: Acute left flank pain, Polycystic kidney, Intractable pain, Acute vomiting Disposition: ADMITTED IP TO THIS [facility] Condition: Fair
[2021-10-12 18:59] LABS: Basophils # (A) 0.1 k/uL (0-0.2); Basophils % (A) 1 %; Eosinophils # (A) 0.2 k/uL (0-0.7); Eosinophils % (A) 1 %; HCT 45.9 % (34.0-46.0); HGB 14.7 gm/dL (11.4-16.0); Lymphocytes # (A) 1.4 k/uL (1.0-4.8); Lymphocytes % (A) 12 %; MCH 29.4 pg (25.0-35.0); MCHC 32.1 g/dL (31.0-37.0); MCV 91.6 fL (80.0-100.0); Mean Platelet Volume 8.1; Monocytes # (A) 0.9 k/uL (0-1.0); Monocytes % (A) 8 %; Neutrophils % (A) 77 %; Platelet Count 271 k/uL (150-450); RBC 5.01 m/uL (3.80-5.40); RDW 13.1 % (11.5-15.5); WBC 11.8 k/uL (3.8-10.6)
[2021-10-12 19:08] LABS: Appearance,Urine Clear (Clear); Bilirubin,Urine Negative (Negative); Blood,Urine Negative (Negative); Color,Urine Light Yellow; Glucose,Urine (UA) Negative (Negative); Ketones,Urine Negative (Negative); Leukocyte Esterase,Urine Negative (Negative); Nitrite,Urine Negative (Negative); Protein,Urine Negative (Negative); Specific Gravity,Urine 1.014 (1.001-1.035); Urobilinogen,Urine <2.0 mg/dL (<2.0)
[2021-10-12 19:11] LABS: ALT 69 U/L (4-34); AST 48 U/L (14-36); African American GFR (CKD) >90 (>60 ml/min/1.73 sqM); Albumin 4.5 g/dL (3.5-5.0); Alkaline Phosphatase 75 U/L (38-126); Anion Gap 8 mmol/L; Blood Urea Nitrogen 12 mg/dL (7-17); Calcium 9.7 mg/dL (8.4-10.2); Carbon Dioxide 32 mmol/L (22-30); Chloride 99 mmol/L (98-107); Glucose 95 mg/dL (74-99); Non-African American GFR(CKD) >90 (>60 ml/min/1.73 sqM); Sodium 139 mmol/L (137-145); Total Bilirubin 0.6 mg/dL (0.2-1.3)
[2021-10-12] MEDS: SODIUM CHLORIDE 0.9% 500 ML 500 ML IV SCH ×2 (19:19→20:03)
--- NOTE | 2021-10-12 20:17 | CT ---
EXAMINATION TYPE: CT abdomen pelvis w con CT DLP: 635.7 mGycm, Automated exposure control for dose reduction was used. DATE OF EXAM: 10/12/2021 7:59 PM COMPARISON: CT abdomen pelvis most recent from 10/13/2017 . CLINICAL INDICATION:Female, 21 years old with history of Abd pain; L flank pain x 1 week, polycystic kidney disease TECHNIQUE: Standard CT of the abdomen and pelvis following the administration of 100 cc of Isovue 3 00 IV contrast material. Coronal and sagittal reformats were performed. FINDINGS: LOWER CHEST: Unremarkable ABDOMEN LIVER: Unremarkable GALLBLADDER AND BILE DUCTS: The gallbladder is surgically absent. PANCREAS: Unremarkable. SPLEEN: Enlarged measuring up to 17 cm which is mildly decreased from prior measured 18.7 cm 2018. ADRENAL GLANDS: Unremarkable. KIDNEYS AND URETERS: Bilateral cysts are seen within the kidneys. Largest cyst on the right measures up to 41 mm and on the left 33 mm. Nonobstructing calculus in the right with an irregular shape and c ould be 2 adjacent calculi in totality measures 17 mm. Additional smaller nonobstructing calculi. PELVIS BLADDER: Unremarkable REPRODUCTIVE: Bilateral tubal ligation clips. ABDOMEN & PELVIS STOMACH AND BOWEL: There is a large stool burden throughout the colon. No evidence of bowel obstructi on. PERITONEUM: No evidence of pneumoperitoneum or free fluid. VASCULATURE: No evidence of aortic aneurysm. MUSCULOSKELETAL: No acute osseous abnormalities. Left superior acetabulum bony island. LYMPH NODES: No gross evidence for lymphadenopathy. SOFT TISSUE/ABDOMINAL WALL: Unremarkable IMPRESSION: 1. Bilateral polycystic kidneys with nonobstructing right renal calculi. 2. Splenomegaly which is slightly decreased in size from 2019. 3. Large stool burden throughout the colon.
[2021-10-12] MEDS ORDERED: MORPHINE SULFATE 4 MG/ML SYRINGE IVP STA (20:32)
--- NOTE | 2021-10-12 20:48 | XR ---
EXAMINATION TYPE: XR chest 2V DATE OF EXAM: 10/12/2021 8:11 PM COMPARISON: None TECHNIQUE: XR chest 2V Frontal and lateral views of the chest. CLINICAL INDICATION:Female, 21 years old with history of PAIN; FINDINGS: Lungs/Pleura: There is no evidence of pleural effusion, focal consolidation, or pneumothorax. Pulmonary vascularity: Unremarkable. Heart/mediastinum: Cardiomediastinal silhouette is unremarkable. Musculoskeletal: No acute osseous pathology. IMPRESSION: No acute cardiopulmonary disease/process.
[2021-10-12] MEDS ORDERED: KETOROLAC 15 MG/ML 1 ML VIAL IVP STA (21:01)
[2021-10-12] MEDS ORDERED: ONDANSETRON 4 MG/2 ML VIAL IVP PRN (21:17)
[2021-10-12] MEDS ORDERED: ACETAMINOPHEN TAB 325 MG TAB PO PRN (21:17)
[2021-10-12] MEDS ORDERED: NALOXONE 0.4 MG/ML 1 ML VIAL IV PRN (21:17)
[2021-10-12 21:34] LABS: Amphetamine Screen,Urine Not Detected (NotDetected); Barbiturate Screen,Urine Not Detected (NotDetected); Benzodiazepines Screen,Urine Not Detected (NotDetected); Cocaine Screen,Urine Not Detected (NotDetected); Methadone Screen, Urine Not Detected (NotDetected); Opiate Screen,Urine Detected (NotDetected); Oxycodone Screen, Urine Not Detected (NotDetected); Phencyclidine Screen,Urine Not Detected (NotDetected); Tricyclic Antidepressant,Urine Not Detected (NotDetected); Urn Cannabinoid Scrn Detected (NotDetected)
[2021-10-12] MEDS: HYDROmorphone 1 MG/ML 1 ML SYRINGE IVP PRN (23:17)
[2021-10-13] MEDS: HYDROmorphone 1 MG/ML 1 ML SYRINGE IVP PRN ×2 (02:32→07:16)
[2021-10-13 07:49] LABS: ALT 53 U/L (4-34); AST 35 U/L (14-36); African American GFR (CKD) >90 (>60 ml/min/1.73 sqM); Albumin 3.2 g/dL (3.5-5.0); Alkaline Phosphatase 62 U/L (38-126); Anion Gap 5 mmol/L; Blood Urea Nitrogen 12 mg/dL (7-17); Calcium 8.6 mg/dL (8.4-10.2); Carbon Dioxide 28 mmol/L (22-30); Chloride 103 mmol/L (98-107); Glucose 94 mg/dL (74-99); Non-African American GFR(CKD) >90 (>60 ml/min/1.73 sqM); Potassium 4.2 mmol/L (3.5-5.1); Sodium 136 mmol/L (137-145); Total Bilirubin 0.6 mg/dL (0.2-1.3); Total Protein 6.3 g/dL (6.3-8.2)
[2021-10-13 08:03] LABS: Basophils # (A) 0.1 k/uL (0-0.2); Basophils % (A) 1 %; Eosinophils # (A) 0.2 k/uL (0-0.7); Eosinophils % (A) 2 %; HCT 38.2 % (34.0-46.0); HGB 12.2 gm/dL (11.4-16.0); Lymphocytes # (A) 1.5 k/uL (1.0-4.8); Lymphocytes % (A) 19 %; MCH 29.1 pg (25.0-35.0); MCHC 32.1 g/dL (31.0-37.0); MCV 90.8 fL (80.0-100.0); Mean Platelet Volume 8.2; Monocytes # (A) 1.1 k/uL (0-1.0); Monocytes % (A) 15 %; Neutrophils # (A) 4.6 k/uL (1.3-7.7); Neutrophils % (A) 59 %; Platelet Count 232 k/uL (150-450); RDW 13.2 % (11.5-15.5); WBC 7.8 k/uL (3.8-10.6)
[2021-10-13] MEDS: SODIUM CHLORIDE 0.9% 1,000 ML IV SCH ×4 (10:11→21:04)
[2021-10-13] MEDS: HYDROmorphone 0.5 MG/0.5 ML SYRINGE IVP PRN ×4 (10:12→23:09)
[2021-10-13] MEDS: DOCUSATE 100 MG CAP PO SCH ×2 (11:34→21:00)
[2021-10-13] MEDS: HYDROcodone/APAP 5-325MG 1 EACH TAB PO PRN (17:52)
--- NOTE | 2021-10-13 19:01 | HP ---
HISTORY AND PHYSICAL CHIEF COMPLAINT: Abdominal pain. HISTORY OF PRESENT ILLNESS: This 21-year-old woman with a past medical history of renal disease and polycystic kidney disease is complaining of severe left-sided abdominal and flank pain. There is no history of any fever, rigor or chills. CT scan of the abdomen showed polycystic kidney disease. The patient is on conservative line of management. Patient also had splenomegaly which is less in intensity apparently. Urology evaluation is in progress. There is no history of any fever, rigor or chills. There is no evidence of UTI. PAST MEDICAL HISTORY: History of polycystic kidney disease. HOME MEDICATIONS: Reviewed. They include Zofran. Doses and other medications are reviewed. ALLERGIES: UNASYN. FAMILY HISTORY: Polycystic kidney disease. SOCIAL HISTORY: History of smoking. REVIEW OF SYSTEMS: Fourteen-point review of systems negative except as mentioned earlier. PHYSICAL EXAMINATION: Pulse is 74, blood pressure 118/74, respiration 18. CHEST: Clear to auscultation. ABDOMEN: Soft. Mild diffuse tenderness in the left side of the abdomen: LEGS: No edema. No swelling. NERVOUS SYSTEM: No focal deficit. SKIN: No ulcer, rash, bleeding. JOINTS: No active deforming arthropathy. NECK: No jugular venous distention. LABS: Reviewed. WBC is 7.8, sodium 135. ASSESSMENT: 1. Acute abdominal pain, possibly secondary to polycystic kidney disease. 2. Splenomegaly, improving. 3. History of renal disease. 4. History of cholecystectomy. 5. History of attention deficit disorder, attention deficit hyperactivity disorder. 6. Anxiety. RECOMMENDATIONS AND DISCUSSION: In this 21-year-old woman who presented with multiple complex medical issues, we will monitor the patient closely. Will continue the current medications. Will add [place] to the current regimen. Otherwise, urology evaluation. IV fluids. Prognosis guarded. Further recommendations to follow. MMODL / IJN: [id number] /
[2021-10-14] MEDS: HYDROmorphone 0.5 MG/0.5 ML SYRINGE IVP PRN ×5 (04:38→22:33)
[2021-10-14] MEDS: DOCUSATE 100 MG CAP PO SCH ×2 (07:45→20:48)
[2021-10-14] MEDS: SODIUM CHLORIDE 0.9% 1,000 ML IV SCH ×2 (10:35→23:45)
--- NOTE | 2021-10-14 10:45 | P.PN ---
Subjective Progress Note Date: 10/14/21 The patient has adult polycystic kidney disease. She was at [facility] recently with a pyelonephritis and/or a ruptured left renal cystoscopy. She was discharged home only to present to [facility] the same discomfort. Her urine was clear. She still has a left flank pain. Upon reviewing her CAT scan it appears that she has some inflammation probably due to the ruptured cyst, hemorrhagic cyst. Is some low-grade temperature probably due to inflammation. Her pain does not seem to be under control. Once her pain is under control she can be discharged home. Continue to follow. Objective - Vital Signs Vital signs: Vital Signs Temp 98.2 F 10/14/21 06:47 Pulse 70 10/14/21 06:47 Resp 18 10/14/21 07:48 BP 99/57 10/14/21 06:47 Pulse Ox 98 10/14/21 06:47 Intake & Output 10/13/21 10/14/21 10/14/21 18:59 06:59 18:59 Intake Total 210 Balance 210 Weight 62.596 kg Intake: Oral 210 Other: Voiding Method Toilet Toilet Toilet # Voids 1 2 # Bowel Movements 1 - Labs CBC & Chem 7: 10/13/21 07:32 10/13/21 07:32 Labs: Microbiology - Last 24 Hours (Table) 10/12/21 17:00 Blood Culture - Preliminary Blood No Growth after 24 hours 10/12/21 18:45 Blood Culture - Preliminary Blood No Growth after 24 hours
[2021-10-14] MEDS: NICOTINE 14MG/24HR PATCH TRANSDERM SCH (15:56)
--- NOTE | 2021-10-14 19:31 | PN ---
PROGRESS NOTE DATE OF SERVICE: 10/14/2021 This 21-year-old woman who was admitted with acute abdominal pain with polycystic kidney disease is being closely monitored. No chest pain. No palpitations. No fever. PHYSICAL EXAMINATION: Alert and oriented x3. Pulse 67, blood pressureNTD, respiration 18. Temperature is 98.3. HEENT: Conjunctivae normal. NECK: No jugular venous distention. CARDIOVASCULAR: S1, S2 muffled. RESPIRATION: Breath sounds diminished at the bases. A few scattered rhonchi. ABDOMEN: Soft, nontender. LEGS: No edema. No swelling. NERVOUS SYSTEM: No focal deficit. LABS: Reviewed. ASSESSMENT: 1. Acute abdominal pain, possibly secondary to polycystic kidney disease. 2. Splenomegaly, improved. 3. History of renal disease. 4. Cholecystectomy. 5. History of attention deficit disorder, attention deficit hyperactivity disorder. 6. Anxiety. RECOMMENDATIONS AND DISCUSSION: I recommend to continue current medications, continue with the monitoring, symptomatic treatment. Continue the pain management. Closely monitor. Dr. Andrade will follow tomorrow. ADAMA / AALIYAHN: [id number] / MTDD
[2021-10-15] MEDS: HYDROmorphone 0.5 MG/0.5 ML SYRINGE IVP PRN (02:24)
[2021-10-15] MEDS: DOCUSATE 100 MG CAP PO SCH ×2 (11:46→20:38)
[2021-10-15] MEDS: NICOTINE 14MG/24HR PATCH TRANSDERM SCH (11:46)
--- NOTE | 2021-10-15 13:59 | P.PN ---
Subjective Progress Note Date: 10/15/21 Still having left flank pain, denies any N/V. indicates that pain radiates to the left upper abdomen Objective - Vital Signs Vital signs: Vital Signs Temp 100.2 F H 10/15/21 02:46 Pulse 79 10/15/21 02:46 Resp 17 10/15/21 02:46 BP 135/73 10/15/21 02:46 Pulse Ox 99 10/15/21 02:46 Intake & Output 10/14/21 10/15/21 10/15/21 18:59 06:59 18:59 Intake Total 240 718 Balance 240 718 Intake: Intake, IV Titration 600 Amount Sodium Chloride 0.9% 1, 600 000 ml @ 75 mls/hr IV . [id number] [facility] Rx#:[id number] Oral 240 118 Other: Voiding Method Toilet Toilet # Voids 1 1 # Bowel Movements 1 1 - Constitutional General appearance: Present: no acute distress - Gastrointestinal General gastrointestinal: Present: tenderness (left flank ). Absent: distended - Psychiatric Psychiatric: Present: A&O x's 3 - Labs CBC & Chem 7: 10/13/21 07:32 10/13/21 07:32 Labs: Microbiology - Last 24 Hours (Table) 10/12/21 17:00 Blood Culture - Preliminary Blood No Growth after 48 hours 10/12/21 18:45 Blood Culture - Preliminary Blood No Growth after 48 hours Assessment and Plan Assessment: 21 yo female with hx of polycystic kidney disease, admitted to the hospital with a left flank pain, repeat CT showed a ruptured cyst. Still having pain this morning -Well add Toradol for pain control
[2021-10-15] MEDS: HYDROmorphone 1 MG/ML 1 ML SYRINGE IVP PRN (14:20)
[2021-10-15] MEDS: SODIUM CHLORIDE 0.9% 1,000 ML IV SCH (15:29)
[2021-10-15] MEDS ORDERED: KETOROLAC 15 MG/ML 1 ML VIAL ONE (17:48)
[2021-10-15] MEDS: KETOROLAC 15 MG/ML 1 ML VIAL IVP SCH ×2 (17:49→22:49)
--- NOTE | 2021-10-15 19:39 | P.PN ---
Subjective Progress Note Date: 10/15/21 Pat Ames, he is a 21-year-old female patient of Dr. Latif, who was admitted to [facility] with a chief complaint of severe left flank pain, patient has a known history of polycystic kidney disease, computed tomography scan of the abdomen and pelvis reveals right sided nonobstructive calculus, patient was seen by urology, her flank pain is likely related to ruptured cyst, patient is still complaining of severe pain causing nausea and vomiting Objective - Vital Signs Vital signs: Vital Signs Temp 99.3 F 10/15/21 14:49 Pulse 91 10/15/21 19:00 Resp 18 10/15/21 19:00 BP 133/82 10/15/21 14:49 Pulse Ox 99 10/15/21 14:49 Intake & Output 10/15/21 10/15/21 10/16/21 06:59 18:59 06:59 Intake Total 836 Balance 836 Intake: Intake, IV Titration 600 Amount Sodium Chloride 0.9% 1, 600 000 ml @ 75 mls/hr IV . [id number] [facility] Rx#:[id number] Oral 236 Other: Voiding Method Toilet Toilet # Voids 1 1 # Bowel Movements 1 - Exam In general patient is alert and oriented x 3 in no distress HEENT head normocephalic and atraumatic Neck is supple no JVD no goiter no lymphadenopathy no carotid bruit Chest examination is clear to auscultation no crackles no wheezing Cardiac exam reveals regular heart sounds S1 and S2 no gallops no murmurs Abdomen is soft, with severe tenderness in the left flank area no organomegaly with normal bowel sounds Extremity exam reveals no edema no cyanosis or clubbing Neurological examination reveals no gross focal deficits - Labs CBC & Chem 7: 10/13/21 07:32 10/13/21 07:32 Labs: Microbiology - Last 24 Hours (Table) 10/12/21 17:00 Blood Culture - Preliminary Blood No Growth after 48 hours 10/12/21 18:45 Blood Culture - Preliminary Blood No Growth after 48 hours Assessment and Plan Plan: Severe left flank pain with nausea and vomiting Underlying history of polycystic kidney disease, with evidence of ruptured cyst on the left Evidence of splenomegaly on computed tomography scan will monitor Underlying history of ADHD Underlying history of anxiety disorder No evidence of urinary tract infection At this time medication and labs were reviewed Continue with current management Patient is still having severe pain with nausea and vomiting When symptoms are controlled patient can be discharged home
[2021-10-16] MEDS: HYDROcodone/APAP 5-325MG 1 EACH TAB PO PRN (00:14)
[2021-10-16] MEDS: SODIUM CHLORIDE 0.9% 1,000 ML IV SCH (05:21)
[2021-10-16] MEDS: KETOROLAC 15 MG/ML 1 ML VIAL IVP SCH (05:42)
[2021-10-16 06:57] VITALS: BP 109/66; PULSE 66; RESP 18; TEMP 98.2
[2021-10-16] MEDS: DOCUSATE 100 MG CAP PO SCH (08:02)
[2021-10-16] MEDS: NICOTINE 14MG/24HR PATCH TRANSDERM SCH (08:02)
--- NOTE | 2021-10-16 12:40 | P.PN ---
Subjective no acute overnight events, indicates flank pain has resolved this morning. Denies any dysuria or gross hematuria Objective - Vital Signs Vital signs: Vital Signs Temp 98.2 F 10/16/21 06:56 Pulse 66 10/16/21 06:56 Resp 18 10/16/21 06:56 BP 109/66 10/16/21 06:56 Pulse Ox 99 10/16/21 06:56 Intake & Output 10/15/21 10/16/21 10/16/21 18:59 06:59 18:59 Intake Total 836 500 118 Balance 836 500 118 Intake: Intake, IV Titration 600 Amount Sodium Chloride 0.9% 1, 600 000 ml @ 75 mls/hr IV . [id number] TY Rx#:[id number] Oral 236 500 118 Other: Voiding Method Toilet # Voids 2 - Constitutional General appearance: Present: no acute distress - Gastrointestinal General gastrointestinal: Present: soft. Absent: distended, tenderness - Labs CBC & Chem 7: 10/13/21 07:32 10/13/21 07:32 Labs: Microbiology - Last 24 Hours (Table) 10/12/21 17:00 Blood Culture - Preliminary Blood No Growth after 72 hours 10/12/21 18:45 Blood Culture - Preliminary Blood No Growth after 72 hours Assessment and Plan Assessment: 21 yo female with hx of polycystic kidney disease, admitted to the hospital with a left flank pain, repeat CT showed a ruptured cyst. pain resolved this morning. -okay for discharge from urology standpoint, can follow-up with Dr. Quevedo as an outpatient in 4-6 weeks
== END 2021-10-16 11:15 | disposition home or self-care (01) | DRG 700 ==
LOC: EC 16:45 → 6NMEDSUR 22:55 → OBSVTOIN 10-15 14:30
PROVIDERS: ADMIT Internal Medicine; ATTEND Internal Medicine
DX: Q61.2 Polycystic kidney, adult type (principal); F17.210 Nicotine dependence, cigarettes, uncomplicated; F90.9 Attention-deficit hyperactivity disorder, unspecified type; R16.1 Splenomegaly, not elsewhere classified; R11.2 Nausea with vomiting, unspecified; F41.9 Anxiety disorder, unspecified; Z82.71 Family history of polycystic kidney; Z90.49 Acquired absence of other specified parts of digestive tract; Z88.1 Allergy status to other antibiotic agents; Z88.8 Allergy status to other drugs, medicaments and biological substances
CPT/HCPCS: 36415; 71046; 74177; 80053; 80306; 81003; 81025; 83605; 85025; 86308; 87040; 96365; 96375; 96376; 99285

== ENCOUNTER 2022-03-10 16:13 | Emergency (ER) | payer OTHER ==
[2022-03-10 16:22] VITALS: TEMP 96.8
[2022-03-10] MEDS ORDERED: ONDANSETRON 4 MG/2 ML VIAL IVP STA (16:29)
[2022-03-10] MEDS ORDERED: SODIUM CHLORIDE 0.9% 1,000 ML IV STA ×2 (16:29→18:25)
[2022-03-10] MEDS ORDERED: MORPHINE SULFATE 4 MG/ML SYRINGE IV STA (16:29)
--- NOTE | 2022-03-10 16:56 | ED ---
Nausea/Vomiting/Diarrhea HPI - General Chief complaint: Nausea/Vomiting/Diarrhea Stated complaint: flank pain vomitting Source: patient, RN notes reviewed Mode of arrival: ambulatory Limitations: no limitations - History of Present Illness Initial comments: This is a pleasant 21-year-old female that had presents with bilateral flank pain and vomiting. Patient denies any hematemesis or coffee-ground emesis. At this point the patient was having dry heaving. This started earlier this morning. Patient has had this previously. Patient states that she believes is related to her polycystic kidney disease. Patient denies chance of . Denies any anterior abdominal pain. No changes in balance or urination. Noted the patient does smoke marijuana on a daily basis. No headache, no fever or chills, no changes in vision or hearing, no sore throat or difficulty with speech, no neck pain, no chest pain or shortness of breath, BILATERAL flank pain, no changes in urination or bowel movements, no numbness or tingling, no extremity pain, no skin rashes or lesions. Past medical, surgical, social, and family history reviewed. MD complaint: nausea, vomiting - Related Data Home Medications Medication Instructions Recorded Confirmed Escitalopram [Lexapro] 10 mg PO DAILY 03/10/22 03/10/22 Previous Rx's Medication Instructions Recorded Cefdinir 300 mg PO Q12HR #14 cap 03/10/22 Naproxen [Naprosyn] 375 mg PO Q12HR PRN #20 tablet 03/10/22 Allergies Allergy/AdvReac Type Severity Reaction Status Date / Time ampicillin [From Unasyn] Allergy Mild Rash/Hives Verified 03/10/22 22:01 sulbactam [From Unasyn] Allergy Mild Rash/Hives Verified 03/10/22 22:01 Review of Systems ROS Statement: Those systems with pertinent positive or pertinent negative responses have been documented in the HPI. ROS Other: All systems not noted in ROS Statement are negative. Past Medical History Past Medical History: Renal Disease Additional Past Medical History / Comment(s): polycystic kidney disease History of Any Multi-Drug Resistant Organisms: None Reported Past Surgical History: Section, Cholecystectomy Past Anesthesia/Blood Transfusion Reactions: No Reported Reaction Past Psychological History: ADD/ADHD, Anxiety Smoking Status: Current every day smoker Past Alcohol Use History: None Reported Past Drug Use History: None Reported - Past Family History Sister(s) Family Medical History: No Reported History Additional Family Medical History / Comment(s): polycystic kidney disease, adhd General Exam - General Exam Comments Initial Comments: Patient in significant distress secondary to nausea and vomiting. Limitations: no limitations General appearance: alert, in distress Head exam: Present: atraumatic, normocephalic, normal inspection Eye exam: Present: normal appearance, PERRL, EOMI. Absent: scleral icterus, conjunctival injection, periorbital swelling ENT exam: Present: normal exam, normal oropharynx, mucous membranes moist, TM's normal bilaterally, normal external ear exam. Absent: mucous membranes dry Neck exam: Present: normal inspection. Absent: tenderness, meningismus, lymphadenopathy Respiratory exam: Present: normal lung sounds bilaterally. Absent: respiratory distress, wheezes, rales, rhonchi, stridor Cardiovascular Exam: Present: regular rate, normal rhythm, normal heart sounds. Absent: systolic murmur, diastolic murmur, rubs, gallop, clicks GI/Abdominal exam: Present: soft, normal bowel sounds. Absent: distended, t enderness, guarding, rebound, rigid Extremities exam: Present: normal inspection, full ROM, normal capillary refill. Absent: tenderness, pedal edema, joint swelling, calf tenderness Back exam: Present: normal inspection, full ROM, CVA tenderness (R), CVA tenderness (L) Neurological exam: Present: alert, oriented X3, CN II-XII intact Psychiatric exam: Present: normal affect, normal mood Skin exam: Present: warm, dry, intact, normal color. Absent: rash Course Vital Signs 03/10/22 03/10/22 16:19 17:08 Temperature 96.8 F L Pulse Rate 60 72 Respiratory 20 18 Rate Blood Pressure 146/85 141/74 O2 Sat by Pulse 98 98 Oximetry - Reevaluation(s) Reevaluation #1: 03/10/22 18:30 Medical record is reviewed Symptoms are improved here in the emergency department Patient is informed of results and questions answered Reevaluation #2: 03/10/22 19:44 Patient is much improved after IV hydration, antiemetics. We'll try a by mouth fluid challenge on the patient. Patient's pain still in the CVA area although improved after morphine. We'll order a dose of Toradol. Awaiting lactic acid results. Discussed in detail with ED attending physician. Blood cultures were sent prior to antibiotic administration. The case was discussed in detail with ED attending physician. Presentation, findings, treatment plan discussed in detail. [employer] Firer/Fireman Dr. Carrasco Reevaluation #3: 03/10/22 21:21 lactic acid was missed. I was told quite some time ago that the nurse would be redrawing this. It is still not drawn. I just placed a verbal order to the nurse to draw it now. Reevaluation #4: 03/10/22 22:27 Patient reevaluated prior to discharge and is in no distress. Abdomen without fluids without difficulty. Lactic acid was 0.8. Hemodynamically stable Medical Decision Making - Medical Decision Making Patient's urinalysis shows evidence of urinary tract infection with white blood cell clumps, 174 white cells per high-powered field, 15 red cells per high- powered field, positive nitrite, and 3+ ketones. Sepsis bundle added. Additional fluid bolus, ceftriaxone 2 g IV piggyback ordered. Awaiting CT results. Suspect she has pyelonephritis based on these findings. Patient does not yet meet sepsis criteria. We'll await lactic acid results. Interestingly, this patient was actually bradycardic in triage. I suspect that this was due to increased vagal tone from dry heaving. patient no distress at discharge. Able to hold down fluids. We'll treat with 7 days of Omnicef 300 mg twice a day. Patient understands treatment plan. Start with clear liquid diet and advance as tolerated. Patient was told to return to the ER for any signs or symptoms worsen. Told to return immediately if any other problems arise. All questions answered. Treatment plan discussed. Patient in agreement Every effort has been made to ensure accuracy of this dictation. However, due to the limitations of electronic medical records and dictation devices, errors in charting still occur. The case was discussed in detail with ED attending physician. Presentation, findings, treatment plan discussed in detail. [employer] Firer/Fireman Dr. Carrasco - Lab Data Result diagrams: 03/10/22 16:59 03/10/22 16:59 Lab Results 03/10/22 03/10/22 03/10/22 Range/Units 16:59 16:59 16:59 WBC 17.1 H (3.8-10.6) k/uL RBC 4.98 (3.80-5.40) m/uL Hgb 14.8 (11.4-16.0) gm/dL Hct 44.6 (34.0-46.0) % MCV 89.6 (80.0-100.0) fL MCH 29.7 (25.0-35.0) pg MCHC 33.1 (31.0-37.0) g/dL RDW 13.4 (11.5-15.5) % Plt Count 240 (150-450) k/uL MPV 8.2 Neutrophils % 85 % Lymphocytes % 9 % Monocytes % 5 % Eosinophils % 0 % Basophils % 1 % Neutrophils # 14.5 H (1.3-7.7) k/uL Lymphocytes # 1.5 (1.0-4.8) k/uL Monocytes # 0.8 (0-1.0) k/uL Eosinophils # 0.0 (0-0.7) k/uL Basophils # 0.1 (0-0.2) k/uL Sodium (137-145) mmol/L Potassium (3.5-5.1) mmol/L Chloride (98-107) mmol/L Carbon Dioxide (22-30) mmol/L Anion Gap mmol/L BUN (7-17) mg/dL Creatinine (0.52-1.04) mg/dL Est GFR (CKD-EPI)AfAm (>60 ml/min/1.73 sqM) Est GFR (CKD-EPI)NonAf (>60 ml/min/1.73 sqM) Glucose (74-99) mg/dL Plasma Lactic Acid Alber (0.7-2.0) mmol/L Calcium (8.4-10.2) mg/dL Total Bilirubin (0.2-1.3) mg/dL AST (14-36) U/L ALT (4-34) U/L Alkaline Phosphatase (38-126) U/L Total Protein (6.3-8.2) g/dL Albumin (3.5-5.0) g/dL Lipase (23-300) U/L Urine Color Yellow Urine Appearance Cloudy H (Clear) Urine pH 6.5 (5.0-8.0) Ur Specific Jackson 1.027 (1.001-1.035) Urine Protein 2+ H (Negative) Urine Glucose (UA) Negative (Negative) Urine Ketones 3+ H (Negative) Urine Blood Trace H (Negative) Urine Nitrite Positive H (Negative) Urine Bilirubin Negative (Negative) Urine Urobilinogen <2.0 (<2.0) mg/dL Ur Leukocyte Esterase Large H (Negative) Urine RBC 15 H (0-5) /hpf Urine WBC 174 H (0-5) /hpf Urine WBC Clumps Moderate H (None) /hpf Ur Squamous Epith Cells 10 H (0-4) /hpf Urine Bacteria Few H (None) /hpf Urine Mucus Few H (None) /hpf Urine HCG, Qual Not Detected (Not Detectd) Urine Opiates Screen (NotDetected) Ur Oxycodone Screen (NotDetected) Urine Methadone Screen (NotDetected) Ur Propoxyphene Screen (NotDetected) Ur Barbiturates Screen (NotDetected) U Tricyclic Antidepress (NotDetected) Ur Phencyclidine Scrn (NotDetected) Ur Amphetamines Screen (NotDetected) U Methamphetamines Scrn (NotDetected) U Benzodiazepines Scrn (NotDetected) Urine Cocaine Screen (NotDetected) U Marijuana (THC) Screen (NotDetected) 03/10/22 03/10/22 03/10/22 Range/Units 16:59 16:59 21:36 WBC (3.8-10.6) k/uL RBC (3.80-5.40) m/uL Hgb (11.4-16.0) gm/dL Hct (34.0-46.0) % MCV (80.0-100.0) fL MCH (25.0-35.0) pg MCHC (31.0-37.0) g/dL RDW (11.5-15.5) % Plt Count (150-450) k/uL MPV Neutrophils % % Lymphocytes % % Monocytes % % Eosinophils % % Basophils % % Neutrophils # (1.3-7.7) k/uL Lymphocytes # (1.0-4.8) k/uL Monocytes # (0-1.0) k/uL Eosinophils # (0-0.7) k/uL Basophils # (0-0.2) k/uL Sodium 134 L (137-145) mmol/L Potassium 4.1 (3.5-5.1) mmol/L Chloride 105 (98-107) mmol/L Carbon Dioxide 14 L (22-30) mmol/L Anion Gap 15 mmol/L BUN 19 H (7-17) mg/dL Creatinine 0.76 (0.52-1.04) mg/dL Est GFR (CKD-EPI)AfAm >90 (>60 ml/min/1.73 sqM) Est GFR (CKD-EPI)NonAf >90 (>60 ml/min/1.73 sqM) Glucose 88 (74-99) mg/dL Plasma Lactic Acid Alber 0.8 (0.7-2.0) mmol/L Calcium 9.8 (8.4-10.2) mg/dL Total Bilirubin 0.9 (0.2-1.3) mg/dL AST 49 H (14-36) U/L ALT 33 (4-34) U/L Alkaline Phosphatase 69 (38-126) U/L Total Protein 7.4 (6.3-8.2) g/dL Albumin 4.7 (3.5-5.0) g/dL Lipase 57 (23-300) U/L Urine Color Urine Appearance (Clear) Urine pH (5.0-8.0) Ur Specific Jackson (1.001-1.035) Urine Protein (Negative) Urine Glucose (UA) (Negative) Urine Ketones (Negative) Urine Blood (Negative) Urine Nitrite (Negative) Urine Bilirubin (Negative) Urine Urobilinogen (<2.0) mg/dL Ur Leukocyte Esterase (Negative) Urine RBC (0-5) /hpf Urine WBC (0-5) /hpf Urine WBC Clumps (None) /hpf Ur Squamous Epith Cells (0-4) /hpf Urine Bacteria (None) /hpf Urine Mucus (None) /hpf Urine HCG, Qual (Not Detectd) Urine Opiates Screen Not Detected (NotDetected) Ur Oxycodone Screen Not Detected (NotDetected) Urine Methadone Screen Not Detected (NotDetected) Ur Propoxyphene Screen Not Detected (NotDetected) Ur Barbiturates Screen Not Detected (NotDetected) U Tricyclic Antidepress Not Detected (NotDetected) Ur Phencyclidine Scrn Not Detected (NotDetected) Ur Amphetamines Screen Not Detected (NotDetected) U Methamphetamines Scrn Not Detected (NotDetected) U Benzodiazepines Scrn Not Detected (NotDetected) Urine Cocaine Screen Not Detected (NotDetected) U Marijuana (THC) Screen Detected H (NotDetected) - Radiology Data Radiology results: report reviewed, image reviewed Disposition Clinical Impression: Pyelonephritis Disposition: ADMITTED IP TO THIS HOSP Condition: Fair Instructions (If sedation given, give patient instructions): Urinary Tract Infection in Women (ED), Acute Nausea and Vomiting (ED) Additional Instructions: Drink plenty of fluids. Try to stick to clear liquids for the next 24 hours. Take antibiotics as directed until they are gone. Follow-up with your regular physician as directed. Return to the ER immediately if any symptoms worsen, new symptoms arise, or any other problems develop. Prescriptions: Cefdinir 300 mg PO Q12HR #14 cap Naproxen [Naprosyn] 375 mg PO Q12HR PRN #20 tablet PRN Reason: Pain Is patient prescribed a controlled substance at d/c from ED?: No Referrals: Cherry Latif MD [STAFF PHYSICIAN] - 03/12/22 Time of Disposition: 20:33
[2022-03-10 17:08] LABS: Basophils # (A) 0.1 k/uL (0-0.2); Basophils % (A) 1 %; Eosinophils % (A) 0 %; HCT 44.6 % (34.0-46.0); HGB 14.8 gm/dL (11.4-16.0); Lymphocytes # (A) 1.5 k/uL (1.0-4.8); Lymphocytes % (A) 9 %; MCH 29.7 pg (25.0-35.0); MCHC 33.1 g/dL (31.0-37.0); MCV 89.6 fL (80.0-100.0); Mean Platelet Volume 8.2; Monocytes # (A) 0.8 k/uL (0-1.0); Monocytes % (A) 5 %; Neutrophils # (A) 14.5 k/uL (1.3-7.7); Neutrophils % (A) 85 %; Platelet Count 240 k/uL (150-450); RBC 4.98 m/uL (3.80-5.40); RDW 13.4 % (11.5-15.5); WBC 17.1 k/uL (3.8-10.6)
[2022-03-10 17:09] VITALS: BP 141/74; PULSE 72; RESP 18
[2022-03-10 17:19] LABS: ALT 33 U/L (4-34); AST 49 U/L (14-36); African American GFR (CKD) >90 (>60 ml/min/1.73 sqM); Albumin 4.7 g/dL (3.5-5.0); Alkaline Phosphatase 69 U/L (38-126); Anion Gap 15 mmol/L; Blood Urea Nitrogen 19 mg/dL (7-17); Calcium 9.8 mg/dL (8.4-10.2); Carbon Dioxide 14 mmol/L (22-30); Chloride 105 mmol/L (98-107); Glucose 88 mg/dL (74-99); Lipase 57 U/L (23-300); Non-African American GFR(CKD) >90 (>60 ml/min/1.73 sqM); Potassium 4.1 mmol/L (3.5-5.1); Sodium 134 mmol/L (137-145); Total Bilirubin 0.9 mg/dL (0.2-1.3); Total Protein 7.4 g/dL (6.3-8.2)
--- NOTE | 2022-03-10 17:24 | XR ---
EXAMINATION TYPE: XR abdomen acute w cxr DATE OF EXAM: 03/10/2022 COMPARISON: This x-ray 10/12/2021 HISTORY: Flank pain TECHNIQUE: FINDINGS: Heart and mediastinum are normal. Lungs are clear. Diaphragm is normal. Bony thorax appears normal. There are clips from cholecystectomy. The bowel gas pattern is normal. No sign of intestinal obstruction or pneumoperitoneum. There are clips from tubal ligation. Bony structures are intact. Th ere is calcifications over the lower pole right kidney. IMPRESSION: Normal chest. Nonacute abdomen. Possible right-sided renal calculi..
[2022-03-10 17:38] LABS: Appearance,Urine Cloudy (Clear); Bacteria,Urine Few /hpf; Bilirubin,Urine Negative (Negative); Blood,Urine Trace (Negative); Color,Urine Yellow; Glucose,Urine (UA) Negative (Negative); Ketones,Urine 3+ (Negative); Leukocyte Esterase,Urine Large (Negative); Mucus,Urine Few /hpf; Nitrite,Urine Positive (Negative); PH, Urine 6.5 (5.0-8.0); Protein,Urine 2+ (Negative); RBC,Urine 15 /hpf (0-5); Specific Gravity,Urine 1.027 (1.001-1.035); Squamous Epithelial Cell,Urine 10 /hpf (0-4); Urobilinogen,Urine <2.0 mg/dL (<2.0); WBC,Urine 174 /hpf (0-5)
--- NOTE | 2022-03-10 18:27 | CT ---
EXAMINATION TYPE: CT abdomen pelvis w con DATE OF EXAM: 03/10/2022 COMPARISON: 10/12/2021 HISTORY: Lower abdominal pain, bilateral flank pain CT DLP: 587.8 mGycm Automated exposure control for dose reduction was used. CONTRAST: Performed with IV Contrast, patient injected with 100 mL of Isovue 300. Images obtained from the diaphragm to the floor the pelvis with the IV contrast. Lung bases are clear. No pleural effusion. Heart size is normal. No pericardial effusion. Liver splee n and stomach appear intact. There is 1 cm cyst in the posterior body of the pancreas. No evidence of solid pancreatic mass. There are clips from cholecystectomy. The bile ducts are not dilated. There is no adrenal mass. There are numerous bilateral renal cysts that measure up to 4 cm. No hydron ephrosis. There is 6 mm calculus interpolar right kidney. There is no retroperitoneal adenopathy. Uri nary bladder is empty. No inguinal hernia. No free fluid in the pelvis. Uterus is anteverted. No pelv ic mass. There is no mesenteric edema. There is some mild fat stranding in the right paracolic gutter. Appendi x not seen. No sign of thickened appendix. No sign of free fluid in the pelvis. No evidence of bowel obstruction. The lumbar vertebrae appear intact. No compression fracture. Posterior elements are intact. Bony pelv is is intact. Hip joints appear normal. IMPRESSION: There is minimal fat stranding in the right paracolic gutter of uncertain significance. This appears new compared to the old exam. Multiple right lateral renal cysts. Nonobstructing right renal calculus . This could be adult type polycystic kidney disease. There is small cyst in the posterior body of th e pancreas without change.
[2022-03-10 18:48] LABS: Amphetamine Screen,Urine Not Detected (NotDetected); Barbiturate Screen,Urine Not Detected (NotDetected); Benzodiazepines Screen,Urine Not Detected (NotDetected); Cocaine Screen,Urine Not Detected (NotDetected); Methadone Screen, Urine Not Detected (NotDetected); Opiate Screen,Urine Not Detected (NotDetected); Oxycodone Screen, Urine Not Detected (NotDetected); Phencyclidine Screen,Urine Not Detected (NotDetected); Tricyclic Antidepressant,Urine Not Detected (NotDetected); Urn Cannabinoid Scrn Detected (NotDetected)
[2022-03-10] MEDS ORDERED: SODIUM CHLORIDE 0.9% 1,000 ML IV SCH (19:30)
[2022-03-10] MEDS ORDERED: KETOROLAC 15 MG/ML 1 ML VIAL IVP STA (19:43)
[2022-03-10] MEDS ORDERED: ONDANSETRON 4 MG ODT STARTER PACK 2 TAB BTL PO STA (22:24)
== END 2022-03-10 22:55 | disposition home or self-care (01) ==
LOC: EC 16:13
DX: N12 Tubulo-interstitial nephritis, not specified as acute or chronic (principal); N28.9 Disorder of kidney and ureter, unspecified; F41.9 Anxiety disorder, unspecified; F90.9 Attention-deficit hyperactivity disorder, unspecified type; F17.200 Nicotine dependence, unspecified, uncomplicated; Z88.0 Allergy status to penicillin; Z79.899 Other long term (current) drug therapy
CPT/HCPCS: 99284 ×2; 96374 ×2; 96375 ×3; 96361 ×3; 36415; 80053; 83605; 83690; 85025; 81001; 81025; 87040; 80306; 87086; 87077; 87186; 74022; 74177; J2270; J2405; J0696; J1885; S0119; Q9967

== ENCOUNTER 2023-09-23 06:38 | Emergency (ER) | payer OTHER ==
[2023-09-23 06:44] VITALS: RESP 18; TEMP 98
[2023-09-23] MEDS: HYDROmorphone 0.5 MG/0.5 ML SYRINGE IVP STA ×2 (06:53→09:30)
[2023-09-23] MEDS: METOCLOPRAMIDE 5 MG/ML 2 ML VIAL IVP STA (06:58)
[2023-09-23] MEDS: SODIUM CHLORIDE 0.9% 500 ML 500 ML IV ONE (07:00)
[2023-09-23] MEDS: SODIUM CHLORIDE 0.9% 1,000 ML IV ONE (07:00)
--- NOTE | 2023-09-23 07:22 | ED ---
General Adult HPI - General Chief complaint: Back Pain/Injury Stated complaint: Back Pain, Vomiting Time Seen by Provider: 09/23/23 06:45 Source: patient, EMS, RN notes reviewed Mode of arrival: EMS Limitations: no limitations - History of Present Illness Initial comments: 23-year-old female presents emergency department chief complaint of flank pain, back pain, Vincent pain. Patient states that worsening last 24 hours. Patient admits to nausea vomiting denies any fevers or chills denies trauma. Denies any rashes. Patient states she has polycystic kidney disease. Patient states she has had some issues with this in the past. Patient denies chest pain no dysuria denies any chance of . - Related Data Home Medications Medication Instructions Recorded Confirmed Escitalopram [Lexapro] 10 mg PO DAILY 03/10/22 03/10/22 Previous Rx's Medication Instructions Recorded Cefdinir 300 mg PO Q12HR #14 cap 03/10/22 Naproxen [Naprosyn] 375 mg PO Q12HR PRN #20 tablet 03/10/22 Ketorolac [Toradol] 10 mg PO Q8HR #15 tab 09/23/23 Ondansetron Odt [Zofran Odt] 4 mg PO Q8HR PRN #10 tab 09/23/23 Allergies Allergy/AdvReac Type Severity Reaction Status Date / Time ampicillin [From Unasyn] Allergy Mild Rash/Hives Verified 09/23/23 06:43 sulbactam [From Unasyn] Allergy Mild Rash/Hives Verified 09/23/23 06:43 Review of Systems ROS Statement: Those systems with pertinent positive or pertinent negative responses have been documented in the HPI. ROS Other: All systems not noted in ROS Statement are negative. Past Medical History Past Medical History: Renal Disease Additional Past Medical History / Comment(s): polycystic kidney disease History of Any Multi-Drug Resistant Organisms: None Reported Past Surgical History: Section, Cholecystectomy Past Anesthesia/Blood Transfusion Reactions: No Reported Reaction Past Psychological History: ADD/ADHD, Anxiety Smoking Status: Current every day smoker Past Alcohol Use History: None Reported Past Drug Use History: None Reported - Past Family History Sister(s) Family Medical History: No Reported History Additional Family Medical History / Comment(s): polycystic kidney disease, adhd General Exam Limitations: no limitations General appearance: alert, in no apparent distress Head exam: Present: atraumatic, normocephalic, normal inspection Eye exam: Present: normal appearance, PERRL, EOMI. Absent: scleral icterus, conjunctival injection, periorbital swelling ENT exam: Present: normal exam, normal oropharynx, mucous membranes moist Neck exam: Present: normal inspection, full ROM. Absent: tenderness, meningismus, lymphadenopathy Respiratory exam: Present: normal lung sounds bilaterally. Absent: respiratory distress, wheezes, rales, rhonchi, stridor Cardiovascular Exam: Present: regular rate, normal rhythm, normal heart sounds. Absent: systolic murmur, diastolic murmur, rubs, gallop, clicks GI/Abdominal exam: Present: soft, tenderness, normal bowel sounds. Absent: distended, guarding, rebound, rigid Back exam: Present: CVA tenderness (R), CVA tenderness (L) Neurological exam: Present: alert Psychiatric exam: Present: normal affect, normal mood Course Vital Signs 09/23/23 09/23/23 09/23/23 06:40 09:32 10:17 Temperature 98 F Pulse Rate 59 L 64 68 Respiratory 18 18 18 Rate Blood Pressure 121/68 118/76 128/84 O2 Sat by Pulse 100 98 98 Oximetry Medical Decision Making - Medical Decision Making Was pt. sent in by a medical professional or institution (, PA, [employer], urgent care, hospital, or [facility]...) When possible be specific @ -No Did you speak to anyone other than the patient for history (EMS, parent, family, police, friend...)? What history was obtained from this source @ -No Did you review nursing and triage notes (agree or disagree)? Why? @ -I reviewed and agree with nursing and triage notes Were old charts reviewed (outside hosp., previous admission, EMS record, old EKG, old radiological studies, urgent care reports/EKG's, [facility] records)? Report findings @ -[Review of prior CBC comp and CT Differential Diagnosis (chest pain, altered mental status, abdominal pain women, abdominal pain men, vaginal bleeding, weakness, fever, dyspnea, syncope, headache, dizziness, GI bleed, back pain, seizure, CVA, palpatations, mental health, musculoskeletal)? @ -Differential Abdominal Pain Women: Appendicitis, Cholecystitis, diverticulosis, ischemic bowel, pancreatitis, hepatitis, UTI, gastroenteritis, AAA, incarcerated hernia, bowel obstruction, constipation, inflammatory bowel, hepatitis, peptic ulcer disease, splenic infarction, perforated viscus, vulvitis, ovarian torsion, PID, kidney stone, placenta abruption, this is not meant to be an all-inclusive list EKG interpreted by me (3pts min.). @ -None X-rays interpreted by me (1pt min.). @ -None done CT interpreted by me (1pt min.). @ -CT abdomen pelvis shows multiple kidney cysts some that are noted to have hemorrhagic appearance U/S interpreted by me (1pt. min.). @ -None done What testing was considered but not performed or refused? (CT, X-rays, U/S, labs)? Why? @ -None What meds were considered but not given or refused? Why? @ -None Did you discuss the management of the patient with other professionals (professionals i.e. , PA, [employer], lab, RT, psych nurse, social service technician, greenhouse florist, teacher, small business banking officer, watch caser)? Give summary @ -No Was smoking cessation discussed for >3mins.? @ -No Was critical care preformed (if so, how long)? @ -No Were there social determinants of health that impacted care today? How? (Homelessness, low income, unemployed, alcoholism, drug addiction, transportation, low edu. Level, literacy, decrease access to med. care, halfway, rehab)? @ -No Was there de-escalation of care discussed even if they declined (Discuss DNR or withdrawal of care, Hospice)? DNR status @ -No What co-morbidities impacted this encounter? (DM, HTN, Smoking, COPD, CAD, Cancer, CVA, ARF, Chemo, Hep., AIDS, mental health diagnosis, sleep apnea, morbid obesity)? @ -Polycystic kidney disease Was patient admitted / discharged? Hospital course, mention meds given and route, prescriptions, significant lab abnormalities, going to OR and other pertinent info. @ -Discharge patient hydrated, given antiemetics did have labs and CT patient updated on findings patient feels comfortable discharge with analgesics and return parameters nato. Undiagnosed new problem with uncertain prognosis? @ -No Drug Therapy requiring intensive monitoring for toxicity (Heparin, Nitro, Insulin, Cardizem)? @ -No Were any procedures done? @ -No Diagnosis/symptom? @ -None vomiting, flank pain, polycystic kidney disease Acute, or Chronic, or Acute on Chronic? @ -Acute Uncomplicated (without systemic symptoms) or Complicated (systemic symptoms)? @ -Uncomplicated Side effects of treatment? @ -No Exacerbation, Progression, or Severe Exacerbation? @ -No Poses a threat to life or bodily function? How? (Chest pain, [place], [place], pneumonia, PE, COPD, DKA, ARF, appy, cholecystitis, CVA, Diverticulitis, Homicidal, Suicidal, threat to staff... and all critical care pts) @ -No - Lab Data Result diagrams: 09/23/23 07:03 09/23/23 07:03 Lab Results 09/23/23 09/23/23 09/23/23 Range/Units 07:03 07:03 07:03 WBC 12.5 H (3.8-10.6) k/uL RBC 4.40 (3.80-5.40) m/uL Hgb 13.5 (11.4-16.0) gm/dL Hct 39.6 (34.0-46.0) % MCV 90.1 (80.0-100.0) fL MCH 30.6 (25.0-35.0) pg MCHC 34.0 (31.0-37.0) g/dL RDW 12.9 (11.5-15.5) % Plt Count 265 (150-450) k/uL MPV 8.9 Neutrophils % 89 % Lymphocytes % 5 % Monocytes % 5 % Eosinophils % 0 % Basophils % 0 % Neutrophils # 11.1 H (1.3-7.7) k/uL Lymphocytes # 0.7 L (1.0-4.8) k/uL Monocytes # 0.6 (0-1.0) k/uL Eosinophils # 0.0 (0-0.7) k/uL Basophils # 0.0 (0-0.2) k/uL Sodium 143 (137-145) mmol/L Potassium 3.6 (3.5-5.1) mmol/L Chloride 115 H (98-107) mmol/L Carbon Dioxide 17 L (22-30) mmol/L Anion Gap 11 mmol/L BUN 13 (7-17) mg/dL Creatinine 0.73 (0.52-1.04) mg/dL Est GFR (CKD-EPI)AfAm >90 (>60 ml/min/1.73 sqM) Est GFR (CKD-EPI)NonAf >90 (>60 ml/min/1.73 sqM) Glucose 111 H (74-99) mg/dL Plasma Lactic Acid Alber 1.5 (0.7-2.0) mmol/L Calcium 9.1 (8.4-10.2) mg/dL Total Bilirubin 0.9 (0.2-1.3) mg/dL AST 27 (14-36) U/L ALT 28 (4-34) U/L Alkaline Phosphatase 61 (38-126) U/L Total Protein 6.7 (6.3-8.2) g/dL Albumin 4.1 (3.5-5.0) g/dL Lipase 66 (23-300) U/L Urine Color Urine Appearance (Clear) Urine pH (5.0-8.0) Ur Specific [place] (1.001-1.035) Urine Protein (Negative) Urine Glucose (UA) (Negative) Urine Ketones (Negative) Urine Blood (Negative) Urine Nitrite (Negative) Urine Bilirubin (Negative) Urine Urobilinogen (<2.0) mg/dL Ur Leukocyte Esterase (Negative) Urine RBC (0-5) /hpf Urine WBC (0-5) /hpf Ur Squamous Epith Cells (0-4) /hpf Amorphous Sediment (None) /hpf Urine Bacteria (None) /hpf Urine Mucus (None) /hpf Urine HCG, Qual (Not Detectd) 09/23/23 09/23/23 Range/Units 09:32 09:32 WBC (3.8-10.6) k/uL RBC (3.80-5.40) m/uL Hgb (11.4-16.0) gm/dL Hct (34.0-46.0) % MCV (80.0-100.0) fL MCH (25.0-35.0) pg MCHC (31.0-37.0) g/dL RDW (11.5-15.5) % Plt Count (150-450) k/uL MPV Neutrophils % % Lymphocytes % % Monocytes % % Eosinophils % % Basophils % % Neutrophils # (1.3-7.7) k/uL Lymphocytes # (1.0-4.8) k/uL Monocytes # (0-1.0) k/uL Eosinophils # (0-0.7) k/uL Basophils # (0-0.2) k/uL Sodium (137-145) mmol/L Potassium (3.5-5.1) mmol/L Chloride (98-107) mmol/L Carbon Dioxide (22-30) mmol/L Anion Gap mmol/L BUN (7-17) mg/dL Creatinine (0.52-1.04) mg/dL Est GFR (CKD-EPI)AfAm (>60 ml/min/1.73 sqM) Est GFR (CKD-EPI)NonAf (>60 ml/min/1.73 sqM) Glucose (74-99) mg/dL Plasma Lactic Acid Alber (0.7-2.0) mmol/L Calcium (8.4-10.2) mg/dL Total Bilirubin (0.2-1.3) mg/dL AST (14-36) U/L ALT (4-34) U/L Alkaline Phosphatase (38-126) U/L Total Protein (6.3-8.2) g/dL Albumin (3.5-5.0) g/dL Lipase (23-300) U/L Urine Color Yellow Urine Appearance Turbid H (Clear) Urine pH 6.0 (5.0-8.0) Ur Specific [place] 1.031 (1.001-1.035) Urine Protein 1+ H (Negative) Urine Glucose (UA) Negative (Negative) Urine Ketones Trace H (Negative) Urine Blood Moderate H (Negative) Urine Nitrite Negative (Negative) Urine Bilirubin Negative (Negative) Urine Urobilinogen <2.0 (<2.0) mg/dL Ur Leukocyte Esterase Negative (Negative) Urine RBC 2 (0-5) /hpf Urine WBC 4 (0-5) /hpf Ur Squamous Epith Cells 3 (0-4) /hpf Amorphous Sediment Occasional H (None) /hpf Urine Bacteria Rare H (None) /hpf Urine Mucus Many H (None) /hpf Urine HCG, Qual Not Detected (Not Detectd) Disposition Clinical Impression: Flank pain, Polycystic kidney disease Disposition: HOME SELF-CARE Instructions (If sedation given, give patient instructions): Flank Pain (ED) Additional Instructions: Please return to the Emergency Department if symptoms worsen or any other concerns. Prescriptions: Ketorolac [Toradol] 10 mg PO Q8HR #15 tab Ondansetron Odt [Zofran Odt] 4 mg PO Q8HR PRN #10 tab PRN Reason: Nausea Is patient prescribed a controlled substance at d/c from ED?: No Referrals: Cherry Latif MD [Primary Care Provider] - 1-2 days Time of Disposition: 10:00
[2023-09-23 07:28] LABS: Basophils % (A) 0 %; Eosinophils % (A) 0 %; HCT 39.6 % (34.0-46.0); HGB 13.5 gm/dL (11.4-16.0); Lymphocytes # (A) 0.7 k/uL (1.0-4.8); Lymphocytes % (A) 5 %; MCH 30.6 pg (25.0-35.0); MCV 90.1 fL (80.0-100.0); Mean Platelet Volume 8.9; Monocytes # (A) 0.6 k/uL (0-1.0); Monocytes % (A) 5 %; Neutrophils # (A) 11.1 k/uL (1.3-7.7); Neutrophils % (A) 89 %; Platelet Count 265 k/uL (150-450); RDW 12.9 % (11.5-15.5); WBC 12.5 k/uL (3.8-10.6)
[2023-09-23 07:40] LABS: ALT 28 U/L (4-34); AST 27 U/L (14-36); African American GFR (CKD) >90 (>60 ml/min/1.73 sqM); Albumin 4.1 g/dL (3.5-5.0); Alkaline Phosphatase 61 U/L (38-126); Anion Gap 11 mmol/L; Blood Urea Nitrogen 13 mg/dL (7-17); Calcium 9.1 mg/dL (8.4-10.2); Carbon Dioxide 17 mmol/L (22-30); Chloride 115 mmol/L (98-107); Glucose 111 mg/dL (74-99); Lipase 66 U/L (23-300); Non-African American GFR(CKD) >90 (>60 ml/min/1.73 sqM); Potassium 3.6 mmol/L (3.5-5.1); Sodium 143 mmol/L (137-145); Total Bilirubin 0.9 mg/dL (0.2-1.3); Total Protein 6.7 g/dL (6.3-8.2)
--- NOTE | 2023-09-23 07:46 | CT ---
EXAMINATION TYPE: CT abdomen pelvis wo con DATE OF EXAM: 09/23/2023 COMPARISON: 03/10/2022 HISTORY: Lower back pain with N/V pt states she has had renal stones before CT DLP: 428 mGycm Examination of the solid and hollow viscera is limited given the lack of contrast. FINDINGS: LUNG BASES: No evidence for nodule. No evidence for infiltrate. LIVER/GB: The gallbladder is unremarkable. No space-occupying hepatic lesion. PANCREAS: No pancreatic mass identified. No inflammatory process seen. SPLEEN: No evidence for splenomegaly. No intrasplenic lesions seen. ADRENALS: No adrenal nodules identified. No evidence for thickening. 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 Some of these cysts demonstrate increased attenuation indicating a hemorrhagic or proteinaceous component. 1.3 cm nonobstructing calculus mid pole right kidney. Additional cluster of calcifications lower pole right kidney measuring 1.6 x 1.0 cm. No vonda hydronephrosis identified. U rinary bladder is grossly unremarkable. BOWEL: Nonvisualization of the appendix. No evidence of bowel obstruction. No inflammatory process. Lymph nodes: No evidence for adenopathy greater than 1 cm. Abdominal aorta: Atheromatous changes seen. No evidence for aneurysm. Genital organs: No significant abnormality. Other: No significant abnormality. IMPRESSION: 1. Polycystic kidney disease redemonstrated. 2. Several of the cysts seen bilaterally demonstrate proteinaceous or hemorrhagic content. 3. Nonobstructing calculi right kidney. No vonda hydronephrosis appreciated.
[2023-09-23 09:56] LABS: Amorphous Sediment,Urine Occasional /hpf; Appearance,Urine Turbid (Clear); Bacteria,Urine Rare /hpf; Bilirubin,Urine Negative (Negative); Blood,Urine Moderate (Negative); Color,Urine Yellow; Glucose,Urine (UA) Negative (Negative); Ketones,Urine Trace (Negative); Leukocyte Esterase,Urine Negative (Negative); Mucus,Urine Many /hpf; Nitrite,Urine Negative (Negative); Protein,Urine 1+ (Negative); RBC,Urine 2 /hpf (0-5); Specific Gravity,Urine 1.031 (1.001-1.035); Squamous Epithelial Cell,Urine 3 /hpf (0-4); Urobilinogen,Urine <2.0 mg/dL (<2.0); WBC,Urine 4 /hpf (0-5)
[2023-09-23] MEDS: ACET/COD 300 MG/30 MG STARTER PACK 6 TAB BTL PO STA (10:06)
[2023-09-23 10:44] VITALS: BP 128/84; PULSE 68
== END 2023-09-23 10:17 | disposition home or self-care (01) ==
LOC: EC 06:38
DX: Q61.3 Polycystic kidney, unspecified (principal); N20.0 Calculus of kidney; Z88.2 Allergy status to sulfonamides; Z88.8 Allergy status to other drugs, medicaments and biological substances
CPT/HCPCS: 36415; 80053; 83605; 83690; 85025; 81001; 81025; 74176; 99284; 96374; 96375; 96376; 96361; J2765; J1170

== ENCOUNTER → 2023-11-05 | Outpatient (CLI) | payer OTHER ==
[2023-11-06 07:42] LABS: Basophils # (A) 0.1 k/uL (0-0.2); Basophils % (A) 1 %; Eosinophils # (A) 0.1 k/uL (0-0.7); Eosinophils % (A) 2 %; HCT 46.9 % (34.0-46.0); HGB 15.2 gm/dL (11.4-16.0); Lymphocytes # (A) 2.4 k/uL (1.0-4.8); Lymphocytes % (A) 29 %; MCH 30.5 pg (25.0-35.0); MCHC 32.4 g/dL (31.0-37.0); MCV 94.3 fL (80.0-100.0); Mean Platelet Volume 10.5; Monocytes # (A) 0.5 k/uL (0-1.0); Monocytes % (A) 6 %; Neutrophils # (A) 5.2 k/uL (1.3-7.7); Neutrophils % (A) 61 %; Platelet Count 286 k/uL (150-450); RBC 4.97 m/uL (3.80-5.40); RDW 12.8 % (11.5-15.5); WBC 8.5 k/uL (3.8-10.6)
== END | disposition home or self-care (01) ==
LOC: LABWHC1 16:21
PROVIDERS: ATTEND Internal Medicine
DX: Q61.3 Polycystic kidney, unspecified (principal)
CPT/HCPCS: 36415; 80053; 82306; 82728; 83540; 83550; 83735; 83970; 84100; 84550; 85025; 87086

== ENCOUNTER → 2023-11-07 | Outpatient (CLI) | payer OTHER ==
[2023-11-07 15:46] LABS: Appearance,Urine Clear (Clear); Bilirubin,Urine Negative (Negative); Blood,Urine Negative (Negative); Color,Urine Yellow (Yellow); Ketones,Urine Negative (Negative); Nitrite,Urine Negative (Negative); Specific Gravity,Urine 1.021 (1.001-1.030); Urobilinogen,Urine 0.2 E.U./DL
[2023-11-07 16:03] LABS: % Iron Saturation 9.11 (12.00-45.00); ALT 48 U/L (8-44); AST 35 U/L (13-35); Albumin 4.4 g/dL (3.8-4.9); Alkaline Phosphatase 59 U/L (41-126); Calcium 9.5 mg/dL (8.7-10.3); Carbon Dioxide 23.9 mmol/L (21.6-31.8); Chloride 107 mmol/L (96-109); Ferritin 14.7 ng/mL (10.0-291.0); Globulin 2.2 g/dL (1.6-3.3); Glucose 108 mg/dL (70-110); Iron 35 UG/DL (50-170); Magnesium 1.9 mg/dL (1.5-2.4); Phosphorus 3.8 mg/dL (2.4-5.1); Potassium 4.3 mmol/L (3.5-5.5); Sodium 140 mmol/L (135-145); Total Bilirubin 0.3 mg/dL (0.3-1.2); Total Iron Binding Capacity 384 UG/DL (228-460); Total Protein 6.6 g/dL (6.2-8.2); Uric Acid 4.7 mg/dL (2.9-7.7)
== END | disposition home or self-care (01) ==
LOC: LABWHC1 09:41
PROVIDERS: ATTEND Internal Medicine
DX: Q61.3 Polycystic kidney, unspecified (principal)
CPT/HCPCS: 36415; 80053; 81003; 82306; 82728; 83540; 83550; 83735; 83970; 84100; 84550; 87086